=== PATIENT | female | born 1975 | race Caucasian/White ===

== ENCOUNTER 2017-08-14 17:29 | Emergency (ER) | payer OTHER ==
[~2017-08-14] VITALS: Ht 152.4 cm; Wt 71.2 kg
[~2017-08-14 17:29] MED LIST: ACYC400 PO; AMOCLA875 PO; CEPH500 PO; CLON.1 PO; CLON1; CLON1 PO; CLON2; CLON2 PO; CYCL10 PO; Crutch1 EACH MISC; DOCU100 PO; FLUC150A PO; GABA300; GABA300 PO; GABA600 PO; HYDACE10B; HYDACE10B PO; HYDACE5 PO; HYDACE5325; HYDCHL25 PO; IBUP800 PO; MEDICAL MARIJUANA; META800 PO; METH10 PO; METH40; METH40 PO; METPRE4DP PO; Mobic15 MG PO; NAPR375 PO; NAPR500 PO; Norco 5-325 Ta1 EACH PO; OXYC10TA19 PO; PARO30; PENVK500 PO; PRED10 PO; PRED20 PO; PROM25 PO; Percocet 5-3251 EACH PO; Protonix40 MG PO; Roxicodone5 MG PO; SULTRIDS PO; TRIM250 PO; VENL75; Zofran4 MG PO
[2017-08-14] MEDS ORDERED: Norco 5-325 Ta1 EACH PO (20:02)
[2017-08-14] MEDS ORDERED: Cyclobenzaprine5 MG PO (20:02)
[2018-02-12] MEDS ORDERED: GABA100 PO (08:29)
== END 2017-08-14 20:13 | disposition home or self-care (01) ==
LOC: ER 17:29
DX: M25.551 Pain in right hip (principal); J44.9 Chronic obstructive pulmonary disease, unspecified; I10 Essential (primary) hypertension; F17.200 Nicotine dependence, unspecified, uncomplicated; Z88.1 Allergy status to other antibiotic agents; Z88.5 Allergy status to narcotic agent; Z86.711 Personal history of pulmonary embolism; Z90.89 Acquired absence of other organs; V43.92XA Unspecified car occupant injured in collision with other type car in traffic accident, initial encounter
CPT/HCPCS: 73502; 99283

== ENCOUNTER 2017-08-23 16:05 | Emergency (ER) | payer OTHER ==
[~2017-08-23] VITALS: Ht 152.4 cm; Wt 70.3 kg
[~2017-08-23 16:05] MED LIST changes: +Cyclobenzaprine5 MG PO
[2017-08-23] MEDS ORDERED: METPRE4DP PO (19:05)
[2018-02-12] MEDS ORDERED: GABA100 PO (08:29)
== END 2017-08-23 19:26 | disposition home or self-care (01) ==
LOC: ER 16:05
DX: S16.1XXA Strain of muscle, fascia and tendon at neck level, initial encounter (principal); M54.12 Radiculopathy, cervical region; V09.9XXA Pedestrian injured in unspecified transport accident, initial encounter
CPT/HCPCS: 36415; 72125; 96374; 99284; J1100

== ENCOUNTER 2017-09-23 15:35 | Emergency (ER) | payer OTHER ==
[~2017-09-23] VITALS: Ht 152.4 cm; Wt 72.6 kg
[2017-09-23] MEDS ORDERED: Klonopin0.5 MG PO (16:30)
[2018-02-12] MEDS ORDERED: GABA100 PO (08:29)
== END 2017-09-23 16:44 | disposition home or self-care (01) ==
LOC: ER 15:35
DX: M54.2 Cervicalgia (principal); Z88.1 Allergy status to other antibiotic agents; Z88.5 Allergy status to narcotic agent; Z79.899 Other long term (current) drug therapy; J44.9 Chronic obstructive pulmonary disease, unspecified; F41.9 Anxiety disorder, unspecified; F17.210 Nicotine dependence, cigarettes, uncomplicated
CPT/HCPCS: 99283

== ENCOUNTER 2018-02-12 08:10 | Emergency (ER) | payer OTHER ==
[~2018-02-12] VITALS: Ht 152.4 cm; Wt 71.2 kg
[~2018-02-12 08:10] MED LIST changes: +Klonopin0.5 MG PO
[2018-02-12] MEDS ORDERED: GABA300 PO (08:29)
[2018-02-12] MEDS ORDERED: CLON.5 PO (08:29)
[2018-02-12] MEDS ORDERED: ALBU90OI INH (10:36)
[2018-02-12] MEDS ORDERED: Augmentin 875-1 EACH PO (10:36)
== END 2018-02-12 10:56 | disposition home or self-care (01) ==
LOC: ER 08:10
DX: J44.0 Chronic obstructive pulmonary disease with (acute) lower respiratory infection (principal); J18.9 Pneumonia, unspecified organism; J32.0 Chronic maxillary sinusitis; F41.9 Anxiety disorder, unspecified; F17.210 Nicotine dependence, cigarettes, uncomplicated; Z88.1 Allergy status to other antibiotic agents; Z88.5 Allergy status to narcotic agent; Z79.899 Other long term (current) drug therapy
CPT/HCPCS: 70220; 71046; 94640

== ENCOUNTER 2018-03-19 06:03 | Emergency (ER) | payer OTHER ==
[~2018-03-19] VITALS: Ht 152.4 cm; Wt 68.5 kg
[~2018-03-19 06:03] MED LIST changes: +ALBU90OI INH; +Augmentin 875-1 EACH PO; +CLON.5 PO
[2018-03-19 07:32] LABS: PCO2 Arterial 42.3 mmHg (35-45); pH Blood Arterial 7.41 (7.35-7.45)
[2018-03-19 08:09] LABS: BASOPHILS ABSOLUTE AUTO 0.05 K/mm3 (0.00-0.23); BASOPHILS PERCENT AUTO 1 % (0-2); EOSINOPHILS ABSOLUTE AUTO 0.32 K/mm3 (0.00-0.68); EOSINOPHILS PERCENT AUTO 4 % (0-6); Hematocrit 34.2 % (33.0-51.0); Hemoglobin 10.9 g/dL (11.5-16.0); IMMATURE GRAN ABSOLUTE AUTO 0.04 K/mm3 (0.00-0.10); IMMATURE GRAN PERCENT AUTO 0 % (0-1); LYMPHOCYTES ABSOLUTE AUTO 2.06 K/mm3 (0.84-5.20); LYMPHOCYTES PERCENT AUTO 23 % (21-46); MONOCYTES ABSOLUTE AUTO 0.91 K/mm3 (0.16-1.47); MONOCYTES PERCENT AUTO 10 % (4-13); Mean Corpuscular HGB 28.8 pg (26.0-34.0); Mean Corpuscular HGB Conc 31.9 g/dL (31.5-36.5); Mean Corpuscular Volume 90 fL (80-100); Mean Platelet Volume 10.2 fL (9.1-12.4); NEUTROPHILS ABSOLUTE AUTO 5.77 K/mm3 (1.96-9.15); NEUTROPHILS PERCENT AUTO 63 % (41-73); Platelet Count 264 K/mm3 (150-400); RDW Coefficient Variation 13.4 % (11.7-14.2); RDW Standard Deviation 44.4 fL (35.1-46.3); Red Blood Cell Count 3.79 M/mm3 (3.80-5.20); White Blood Cell Count 9.15 K/mm3 (4.00-11.30)
[2018-03-19 08:26] LABS: Alanine Aminotransfer (ALT/SGP 41 U/L (12-78); Albumin, Blood 2.9 g/dL (3.4-5.0); Albumin/Globulin Ratio 0.9 (0.8-1.8); Alk Phos 58 U/L (50-136); Anion Gap 7 mmol/L (6-16); Aspartate Aminotrans (AST/SGOT 30 U/L (12-37); Bilirubin, Total 0.4 mg/dL (0.1-1.0); Blood Urea Nitrogen 24 mg/dL (8-24); Bun/Creatinine Ratio 25.9 (12.0-20.0); CO2, Blood 25 mmol/L (21-32); Chloride, Blood 109 mmol/L (98-108); Creatinine, Blood 0.93 mg/dL (0.40-1.00); Globulin, Blood 3.1 g/dL (2.2-4.0); Glomerular Filtration Rate >60 (60-); Glucose, Blood 93 mg/dL (70-99); Potassium, Blood 4.1 mmol/L (3.5-5.5); Sodium, Blood 141 mmol/L (136-145)
[2018-03-19] MEDS ORDERED: LEVO750 PO (09:17)
== END 2018-03-19 09:42 | disposition home or self-care (01) ==
LOC: ER 06:03
PROVIDERS: Emergency Medicine
DX: J44.1 Chronic obstructive pulmonary disease with (acute) exacerbation (principal); J44.0 Chronic obstructive pulmonary disease with (acute) lower respiratory infection; J18.9 Pneumonia, unspecified organism; F41.9 Anxiety disorder, unspecified; F17.210 Nicotine dependence, cigarettes, uncomplicated; Z88.1 Allergy status to other antibiotic agents; Z88.5 Allergy status to narcotic agent; Z79.899 Other long term (current) drug therapy
CPT/HCPCS: 36415; 36600; 71046; 80053; 82803; 85025; 94640; 96374; 99283-25; J1885

== ENCOUNTER 2018-04-03 18:01 | Inpatient (IN) | payer OTHER ==
[~2018-04-03] VITALS: Ht 152.4 cm; Wt 79.2 kg
[~2018-04-03 18:01] MED LIST changes: +GABA100 PO; +LEVO750 PO
[2018-04-03 18:45] LABS: BASOPHILS ABSOLUTE AUTO 0.03 K/mm3 (0.00-0.23); BASOPHILS PERCENT AUTO 0 % (0-2); EOSINOPHILS ABSOLUTE AUTO 0.01 K/mm3 (0.00-0.68); EOSINOPHILS PERCENT AUTO 0 % (0-6); Hematocrit 36.4 % (33.0-51.0); Hemoglobin 11.5 g/dL (11.5-16.0); IMMATURE GRAN ABSOLUTE AUTO 0.04 K/mm3 (0.00-0.10); IMMATURE GRAN PERCENT AUTO 0 % (0-1); LYMPHOCYTES ABSOLUTE AUTO 1.99 K/mm3 (0.84-5.20); LYMPHOCYTES PERCENT AUTO 17 % (21-46); MONOCYTES PERCENT AUTO 4 % (4-13); Mean Corpuscular HGB 29.1 pg (26.0-34.0); Mean Corpuscular HGB Conc 31.6 g/dL (31.5-36.5); Mean Corpuscular Volume 92 fL (80-100); Mean Platelet Volume 10.2 fL (9.1-12.4); NEUTROPHILS ABSOLUTE AUTO 8.85 K/mm3 (1.96-9.15); NEUTROPHILS PERCENT AUTO 77 % (41-73); Platelet Count 399 K/mm3 (150-400); RDW Coefficient Variation 13.6 % (11.7-14.2); RDW Standard Deviation 46.5 fL (35.1-46.3); Red Blood Cell Count 3.95 M/mm3 (3.80-5.20); White Blood Cell Count 11.42 K/mm3 (4.00-11.30)
[2018-04-03 19:04] LABS: Alanine Aminotransfer (ALT/SGP 36 U/L (12-78); Albumin, Blood 3.1 g/dL (3.4-5.0); Albumin/Globulin Ratio 0.9 (0.8-1.8); Alk Phos 61 U/L (50-136); Anion Gap 10 mmol/L (6-16); Aspartate Aminotrans (AST/SGOT 34 U/L (12-37); Bilirubin, Total 0.7 mg/dL (0.1-1.0); Blood Urea Nitrogen 29 mg/dL (8-24); Bun/Creatinine Ratio 27.9 (12.0-20.0); CO2, Blood 23 mmol/L (21-32); Calcium, Blood 8.5 mg/dL (8.5-10.1); Chloride, Blood 108 mmol/L (98-108); Creatinine, Blood 1.04 mg/dL (0.40-1.00); Globulin, Blood 3.3 g/dL (2.2-4.0); Glomerular Filtration Rate >60 (60-); Glucose, Blood 135 mg/dL (70-99); Potassium, Blood 3.9 mmol/L (3.5-5.5); Sodium, Blood 141 mmol/L (136-145); Total Protein, Blood 6.4 g/dL (6.4-8.2); Troponin I 0.043 ng/mL (0.000-0.040)
[2018-04-04 06:43] LABS: Anion Gap 8 mmol/L (6-16); Blood Urea Nitrogen 29 mg/dL (8-24); Bun/Creatinine Ratio 29.9 (12.0-20.0); CHOL/HDL RATIO 3.7; CO2, Blood 25 mmol/L (21-32); Calcium, Blood 7.9 mg/dL (8.5-10.1); Chloride, Blood 108 mmol/L (98-108); Cholesterol 121 mg/dL (50-200); Creatinine, Blood 0.97 mg/dL (0.40-1.00); Glomerular Filtration Rate >60 (60-); Glucose, Blood 144 mg/dL (70-99); HDL Cholesterol 33 mg/dL (>39); LDL/HDL RATIO 2.2; Low Density Lipoprotein Chol 74 mg/dL (0-110); Potassium, Blood 4.5 mmol/L (3.5-5.5); Sodium, Blood 141 mmol/L (136-145); Triglycerides 70 mg/dL (30-160); Troponin I 0.038 ng/mL (0.000-0.040); Very Low Density Lipoprot Chol 14 mg/dL (6-32)
[2018-04-05 06:13] LABS: BASOPHILS ABSOLUTE AUTO 0.03 K/mm3 (0.00-0.23); BASOPHILS PERCENT AUTO 0 % (0-2); EOSINOPHILS ABSOLUTE AUTO 0.11 K/mm3 (0.00-0.68); EOSINOPHILS PERCENT AUTO 1 % (0-6); Hematocrit 34.9 % (33.0-51.0); Hemoglobin 10.8 g/dL (11.5-16.0); IMMATURE GRAN ABSOLUTE AUTO 0.04 K/mm3 (0.00-0.10); IMMATURE GRAN PERCENT AUTO 0 % (0-1); LYMPHOCYTES ABSOLUTE AUTO 2.87 K/mm3 (0.84-5.20); LYMPHOCYTES PERCENT AUTO 23 % (21-46); MONOCYTES ABSOLUTE AUTO 0.83 K/mm3 (0.16-1.47); MONOCYTES PERCENT AUTO 7 % (4-13); Mean Corpuscular HGB Conc 30.9 g/dL (31.5-36.5); Mean Corpuscular Volume 90 fL (80-100); Mean Platelet Volume 10.7 fL (9.1-12.4); NEUTROPHILS PERCENT AUTO 68 % (41-73); Platelet Count 302 K/mm3 (150-400); RDW Coefficient Variation 13.5 % (11.7-14.2); RDW Standard Deviation 44.6 fL (35.1-46.3); Red Blood Cell Count 3.86 M/mm3 (3.80-5.20); White Blood Cell Count 12.28 K/mm3 (4.00-11.30)
[2018-04-05 06:42] LABS: Bun/Creatinine Ratio 36.4 (12.0-20.0); Calcium, Blood 8.3 mg/dL (8.5-10.1); Creatinine, Blood 1.21 mg/dL (0.40-1.00); Potassium, Blood 4.7 mmol/L (3.5-5.5)
[2018-04-06 06:02] LABS: Bun/Creatinine Ratio 30.4 (12.0-20.0); Calcium, Blood 8.2 mg/dL (8.5-10.1); Creatinine, Blood 1.25 mg/dL (0.40-1.00); Potassium, Blood 5.1 mmol/L (3.5-5.5)
[2018-04-07 08:00] LABS: Anion Gap 4 mmol/L (6-16); Blood Urea Nitrogen 29 mg/dL (8-24); Bun/Creatinine Ratio 29.3 (12.0-20.0); CO2, Blood 33 mmol/L (21-32); Chloride, Blood 101 mmol/L (98-108); Creatinine, Blood 0.99 mg/dL (0.40-1.00); Glomerular Filtration Rate >60 (60-); Glucose, Blood 96 mg/dL (70-99); Potassium, Blood 4.9 mmol/L (3.5-5.5); Sodium, Blood 138 mmol/L (136-145)
[2018-04-08 05:31] LABS: BASOPHILS ABSOLUTE AUTO 0.06 K/mm3 (0.00-0.23); BASOPHILS PERCENT AUTO 1 % (0-2); EOSINOPHILS ABSOLUTE AUTO 0.32 K/mm3 (0.00-0.68); EOSINOPHILS PERCENT AUTO 3 % (0-6); Hematocrit 33.6 % (33.0-51.0); Hemoglobin 10.2 g/dL (11.5-16.0); IMMATURE GRAN ABSOLUTE AUTO 0.02 K/mm3 (0.00-0.10); IMMATURE GRAN PERCENT AUTO 0 % (0-1); LYMPHOCYTES PERCENT AUTO 22 % (21-46); MONOCYTES ABSOLUTE AUTO 1.05 K/mm3 (0.16-1.47); MONOCYTES PERCENT AUTO 11 % (4-13); Mean Corpuscular HGB Conc 30.4 g/dL (31.5-36.5); Mean Corpuscular Volume 92 fL (80-100); Mean Platelet Volume 10.2 fL (9.1-12.4); NEUTROPHILS ABSOLUTE AUTO 5.92 K/mm3 (1.96-9.15); NEUTROPHILS PERCENT AUTO 63 % (41-73); Platelet Count 299 K/mm3 (150-400); RDW Coefficient Variation 13.2 % (11.7-14.2); RDW Standard Deviation 45.1 fL (35.1-46.3); Red Blood Cell Count 3.64 M/mm3 (3.80-5.20); White Blood Cell Count 9.47 K/mm3 (4.00-11.30)
[2018-04-08 05:49] LABS: Bun/Creatinine Ratio 25.4 (12.0-20.0); Calcium, Blood 8.4 mg/dL (8.5-10.1); Creatinine, Blood 1.22 mg/dL (0.40-1.00); Potassium, Blood 4.9 mmol/L (3.5-5.5)
[2018-04-10 06:01] LABS: Anion Gap 7 mmol/L (6-16); Blood Urea Nitrogen 35 mg/dL (8-24); CO2, Blood 33 mmol/L (21-32); Calcium, Blood 8.5 mg/dL (8.5-10.1); Chloride, Blood 102 mmol/L (98-108); Creatinine, Blood 1.03 mg/dL (0.40-1.00); Glomerular Filtration Rate >60 (60-); Glucose, Blood 91 mg/dL (70-99); Potassium, Blood 4.1 mmol/L (3.5-5.5); Sodium, Blood 142 mmol/L (136-145)
[2018-04-10] MEDS ORDERED: FURO40 PO (10:15)
[2018-04-10] MEDS ORDERED: Coreg12.5 MG PO (10:15)
[2018-04-10] MEDS ORDERED: LISI5 PO (10:16)
[2018-04-10] MEDS ORDERED: NICO21TP TOP (10:16)
== END 2018-04-10 11:39 | disposition home or self-care (01) | DRG 291 ==
LOC: ER 18:01 → MEDS 21:11 → ENPENDDIS 04-10 09:30 → MEDS 04-10 11:39
PROVIDERS: Emergency Medicine; Internal Medicine; Internal Medicine Cardiovascular Disease
DX: I13.0 Hypertensive heart and chronic kidney disease with heart failure and stage 1 through stage 4 chronic kidney disease, or unspecified chronic kidney disease (principal); I50.21 Acute systolic (congestive) heart failure; J96.01 Acute respiratory failure with hypoxia; J44.1 Chronic obstructive pulmonary disease with (acute) exacerbation; N17.9 Acute kidney failure, unspecified; I27.20 Pulmonary hypertension, unspecified; E87.5 Hyperkalemia; I36.1 Nonrheumatic tricuspid (valve) insufficiency; I42.0 Dilated cardiomyopathy; D64.9 Anemia, unspecified; N18.1 Chronic kidney disease, stage 1; M79.7 Fibromyalgia; F15.10 Other stimulant abuse, uncomplicated; R77.8 Other specified abnormalities of plasma proteins; T50.8X5A Adverse effect of diagnostic agents, initial encounter; Y92.239 Unspecified place in hospital as the place of occurrence of the external cause; F32.9 Major depressive disorder, single episode, unspecified; R73.9 Hyperglycemia, unspecified; I34.0 Nonrheumatic mitral (valve) insufficiency; N14.1 Nephropathy induced by other drugs, medicaments and biological substances; I25.2 Old myocardial infarction; Z22.322 Carrier or suspected carrier of Methicillin resistant Staphylococcus aureus; Z79.899 Other long term (current) drug therapy; Z88.1 Allergy status to other antibiotic agents; Z88.5 Allergy status to narcotic agent; Z59.0 Homelessness
CPT/HCPCS: 36415; 71046; 71260; 78452; 80048; 80053; 80061; 83036; 83735; 83880; 84484; 85025; 87070; 87081; 93005; 93010; 93017; 93306; 94640; 94760; 94762; 96361; 96374; 96375; 99285-25; A9500; J0706; J1650; J1940; J2405; J2785; J2930; J3010; J7030; Q9967

== ENCOUNTER 2019-05-10 06:52 | Inpatient (IN) | payer OTHER ==
[~2019-05-10] VITALS: Ht 152.4 cm; Wt 76.0 kg
[~2019-05-10 06:52] MED LIST changes: +Coreg12.5 MG PO; +FURO40 PO; +LISI5 PO; +NICO21TP TOP
[2019-05-10 07:55] LABS: BASOPHILS ABSOLUTE AUTO 0.09 K/mm3 (0.00-0.23); BASOPHILS PERCENT AUTO 1 % (0-2); EOSINOPHILS ABSOLUTE AUTO 0.34 K/mm3 (0.00-0.68); EOSINOPHILS PERCENT AUTO 3 % (0-6); Hemoglobin 12.1 g/dL (11.5-16.0); IMMATURE GRAN ABSOLUTE AUTO 0.05 K/mm3 (0.00-0.10); IMMATURE GRAN PERCENT AUTO 0 % (0-1); LYMPHOCYTES PERCENT AUTO 24 % (21-46); MONOCYTES ABSOLUTE AUTO 0.96 K/mm3 (0.16-1.47); MONOCYTES PERCENT AUTO 8 % (4-13); Mean Corpuscular HGB 28.6 pg (26.0-34.0); Mean Corpuscular Volume 92 fL (80-100); Mean Platelet Volume 9.9 fL (9.1-12.4); NEUTROPHILS ABSOLUTE AUTO 7.51 K/mm3 (1.96-9.15); NEUTROPHILS PERCENT AUTO 64 % (41-73); Platelet Count 372 K/mm3 (150-400); RDW Coefficient Variation 13.1 % (11.7-14.2); RDW Standard Deviation 43.9 fL (35.1-46.3); Red Blood Cell Count 4.23 M/mm3 (3.80-5.20); White Blood Cell Count 11.75 K/mm3 (4.00-11.30)
[2019-05-10 08:15] LABS: Troponin I 0.037 ng/mL (0.000-0.040)
[2019-05-10 08:16] LABS: Albumin, Blood 3.5 g/dL (3.4-5.0); Bilirubin, Total 0.5 mg/dL (0.1-1.0); Bun/Creatinine Ratio 18.1 (12.0-20.0); Calcium, Blood 8.7 mg/dL (8.5-10.1); Creatinine, Blood 1.16 mg/dL (0.40-1.00); Globulin, Blood 3.5 g/dL (2.2-4.0); Potassium, Blood 3.9 mmol/L (3.5-5.5)
[2019-05-10] MEDS ORDERED: Ventolin/Prove6.7 GM INH (11:51)
[2019-05-10] MEDS ORDERED: SPIRIVA RESPIMAT4 GM INH (11:51)
[2019-05-10] MEDS ORDERED: LAMO25 PO ×2 (11:52)
[2019-05-10 15:46] LABS: Adenovirus Not Detected (NOT DETECT); Bordetella pertussis Not Detected (NOT DETECT); Chlamydophila pneumoniae Not Detected (NOT DETECT); Coronavirus 229E Not Detected (NOT DETECT); Coronavirus HKU1 Not Detected (NOT DETECT); Coronavirus NL63 Not Detected (NOT DETECT); Coronavirus OC43 Not Detected (NOT DETECT); Human Metapneumovirus Not Detected (NOT DETECT); Human Rhinovirus/Enterovirus Detected (NOT DETECT); Influenza A Not Detected (NOT DETECT); Influenza A/2009-H1 Not Detected (NOT DETECT); Influenza A/H1 Not Detected (NOT DETECT); Influenza A/H3 Not Detected (NOT DETECT); Influenza B Not Detected (NOT DETECT); Mycoplasma pneumoniae Not Detected (NOT DETECT); Parainfluenza Virus 1 Not Detected (NOT DETECT); Parainfluenza Virus 2 Not Detected (NOT DETECT); Parainfluenza Virus 3 Not Detected (NOT DETECT); Parainfluenza Virus 4 Not Detected (NOT DETECT); Respiratory Syncytial Virus Not Detected (NOT DETECT)
--- NOTE | 2019-05-10 19:46 | NUR ---
SHIFT SUMMARY RECEIVED REPORT FROM GERARD LOWERY IN ED. PT TO ROOM AT 1315 VIA GURNEY, SBA TRANSFERED TO BED. PT ORIENTED TO ROOM AND CALL LIGHT. PT EDUCATED ON FALL RISK AND TO CALL BEFORE GETTING OUT OF BED. PT A&Ox4. CALM AND COOPERTIAVE WITH CARE. PT RESTING IN BED DURING SHIFT. UP TO BATHROOM WITH SBA. PT REPORTS PAIN IN RIBS AND BACK, MEDICATED WITH TYLENOL AND NO RELEIFE, NOTIFIED DR MAYER AND DISCUSSED PAIN MANAGEMENT, NEW ORDERS ENTERED BY , MEDICATED x1 WITH FENTNYL WITH POSITIVE RESULTS. PT DENIES SOB, SPO2 >92% ON RA, BREATHING EVEN AND UNLABORED. PT DENIES PRODUCTIVE COUGH, HARSH COUGH NOTIED. RESP PANEL COLLECTED AND SENT. NEED URINE AND SPUTUM SAMPLE. PT RECEIVING IV ANTIBIOTICS AND LASIX. VSS. NO OTHER ACUTE CHANGES NOTED. REPORT GIVEN TO ONCOMING RN.
[2019-05-11 05:40] LABS: BASOPHILS ABSOLUTE AUTO 0.02 K/mm3 (0.00-0.23); BASOPHILS PERCENT AUTO 0 % (0-2); EOSINOPHILS ABSOLUTE AUTO 0.01 K/mm3 (0.00-0.68); EOSINOPHILS PERCENT AUTO 0 % (0-6); Hematocrit 38.1 % (33.0-51.0); Hemoglobin 12.2 g/dL (11.5-16.0); IMMATURE GRAN ABSOLUTE AUTO 0.12 K/mm3 (0.00-0.10); IMMATURE GRAN PERCENT AUTO 1 % (0-1); LYMPHOCYTES ABSOLUTE AUTO 1.47 K/mm3 (0.84-5.20); LYMPHOCYTES PERCENT AUTO 7 % (21-46); MONOCYTES ABSOLUTE AUTO 1.52 K/mm3 (0.16-1.47); MONOCYTES PERCENT AUTO 7 % (4-13); Mean Corpuscular HGB 28.5 pg (26.0-34.0); Mean Platelet Volume 9.9 fL (9.1-12.4); NEUTROPHILS ABSOLUTE AUTO 17.91 K/mm3 (1.96-9.15); NEUTROPHILS PERCENT AUTO 85 % (41-73); Platelet Count 439 K/mm3 (150-400); RDW Coefficient Variation 12.8 % (11.7-14.2); RDW Standard Deviation 41.8 fL (35.1-46.3); Red Blood Cell Count 4.28 M/mm3 (3.80-5.20); White Blood Cell Count 21.05 K/mm3 (4.00-11.30)
[2019-05-11 05:44] LABS: Mean Corpuscular Volume 89 fL (80-100)
[2019-05-11 06:01] LABS: Albumin/Globulin Ratio 0.8 (0.8-1.8); Bilirubin, Total 0.4 mg/dL (0.1-1.0); Bun/Creatinine Ratio 25.8 (12.0-20.0); Calcium, Blood 9.1 mg/dL (8.5-10.1); Creatinine, Blood 1.2 mg/dL (0.40-1.00); Globulin, Blood 3.7 g/dL (2.2-4.0); Potassium, Blood 4.8 mmol/L (3.5-5.5); Total Protein, Blood 6.7 g/dL (6.4-8.2)
--- NOTE | 2019-05-11 06:11 | NUR ---
SHIFT SUMMARY PT RESTING IN ROOM COMFORTABLY AT THIS TIME. NO ACUTE CHANGES IN STATUS T/O NIGHT. RESP EVEN UNLABORED ON RA W/ SATS >92%. DENIES CP OR SOB. PT WAS MEDICATED ONCE DURING NIGHT FOR PAIN. PT WAS ALSO GIVEN K PAD FOR MUSLCE SPASMS IN HER BACK. PT REPORTS FEELING MUCH BETTER. PT HAS BEEN UNLABOLE TO PROVIDE URINE SAMPLE T/O NIGHT, PT REPORTS HAS NOT NEEDED TO GO TO THE BATHROOM. PT EDUCATED THAT IF SHE HASN;T GONE TO THE BATHROOM SOON THAT WE WOULD NEED TO BLADDER SCAN PT TO ENSURE THAT PT WAS NOT RETAINING URINE. PT REPORTS UNDERSTANDING. DENIES OTHER NEEDS. PT REQUESTED SNACKS THIS AM BEFORE BREAKFAST D/T INCREASED APPETITE. CALL LIGHT IN REACH.
[2019-05-11 10:26] LABS: U Amphetamine Screen DETECTED; U Barbituate Screen Not Detected; U Benzodiazapine Screen Not Detected; U Buprenorphine Screen Not Detected; U Cannabinoids Screen Not Detected; U Cocaine Screen Not Detected; U Methadone Screen Not Detected; U Methamphetamine Screen DETECTED; U Opiates Screen Not Detected; U Oxycodone Screen Not Detected; U Phencyclidine Screen Not Detected; U Propoxyphene Screen Not Detected
--- NOTE | 2019-05-11 11:54 | NUR ---
Echocardiogram completed.
--- NOTE | 2019-05-11 14:45 | NUR ---
REPORT GIVEN TO RIO BE RN ON MEDICAL. PT TO ROOM AT 1430. PT A&Ox4. CALM AND COOPERATIVE WITH CARE. PT RESTING IN BED DURING SHFIT. UP IND IN ROOM. PT REPORTS RIB/BACK PAIN, MEDICATED X1 WITH FENTNYL WITH POSTIVE RESULTS. PT DENIES SOB AND NAUSEA T/O SHIFT. PT HAS GOOD APPETEITE. URINE AND SPUTUM SPECIMEN SENT. PT RECEIVED PO STEROIDS AND IV LASIX. VSS. NO OTHER ACUTE CHANGES NOTED DURING SHIFT.
--- NOTE | 2019-05-11 19:05 | NUR ---
PT. TRANSFERRED FROM [facility] AT 1435 VIA . PT. WENT TO BED AND SLEPT UNTIL 1800 THIS EVENING. UPON WAKING PT. ATE HER DINNER AND REQUESTED PAIN MEDS. FENTNYL GIVEN PER ORDERS. PT. NOTED TO HAVE SCILIOSIS. NO NOTEABLE CHANGES SINCE COMING TO THE FLOOR.
--- NOTE | 2019-05-12 05:09 | NUR ---
HAS BEEN RESTING QUIETLY WITH A FEW EXCEPTIONS WHEN SHE CAME OUT IN THE HALLWAY FOR ASSISTANCE. - HOW TO TURN OFF THE LIGHTS IN HER ROOM, ETC. MED TELE SINUS RHYTHM. UP AD REUBEN IN ROOM. CALL LIGHT IN REACH.
[2019-05-12 06:08] LABS: BASOPHILS ABSOLUTE AUTO 0.03 K/mm3 (0.00-0.23); BASOPHILS PERCENT AUTO 0 % (0-2); EOSINOPHILS ABSOLUTE AUTO 0.04 K/mm3 (0.00-0.68); EOSINOPHILS PERCENT AUTO 0 % (0-6); Hematocrit 38.1 % (33.0-51.0); Hemoglobin 12.1 g/dL (11.5-16.0); IMMATURE GRAN PERCENT AUTO 1 % (0-1); LYMPHOCYTES ABSOLUTE AUTO 2.46 K/mm3 (0.84-5.20); LYMPHOCYTES PERCENT AUTO 15 % (21-46); MONOCYTES PERCENT AUTO 8 % (4-13); Mean Corpuscular HGB 29.1 pg (26.0-34.0); Mean Corpuscular HGB Conc 31.8 g/dL (31.5-36.5); Mean Corpuscular Volume 92 fL (80-100); Mean Platelet Volume 10.2 fL (9.1-12.4); NEUTROPHILS PERCENT AUTO 76 % (41-73); Platelet Count 392 K/mm3 (150-400); RDW Coefficient Variation 12.9 % (11.7-14.2); RDW Standard Deviation 43.4 fL (35.1-46.3); Red Blood Cell Count 4.16 M/mm3 (3.80-5.20); White Blood Cell Count 16.63 K/mm3 (4.00-11.30)
[2019-05-12 06:18] LABS: Bun/Creatinine Ratio 36.5 (12.0-20.0); Calcium, Blood 9.1 mg/dL (8.5-10.1); Creatinine, Blood 1.15 mg/dL (0.40-1.00); Potassium, Blood 4.3 mmol/L (3.5-5.5)
--- NOTE | 2019-05-12 19:12 | NUR ---
SHIFT SUMMARY: NO ACUTE CHANGES TO REPORT THIS SHIFT. PT A&O; CALM AND COOPERATIVE WITH CARE. MEDICATED FOR PAIN & ANXIETY PER EMAR. TELE IN PLACE; SR @ 83 PER LEGAL DOCUMENT SPECIALIST DURING MORNING ASSESSMENT. LUNGS CONTINUE WHEEZY DIM; DIURETICS CONTINUING. REPORT GIVEN TO ONCOMING RN.
--- NOTE | 2019-05-13 01:47 | NUR ---
ERSTING QUIETLY WITH FEW INTERRUPTIONS NOTED. AWAKE EARLIER AND REQUESTED FOOD, LUNGS CONTINUE TO DISPLAY SLIGHT WHEEZE WITH AUSCULTATION BUT SEEMS ASYMPTOMATIC. CALL LIGHT IN REACH.
[2019-05-13 05:07] LABS: BASOPHILS ABSOLUTE AUTO 0.03 K/mm3 (0.00-0.23); BASOPHILS PERCENT AUTO 0 % (0-2); EOSINOPHILS ABSOLUTE AUTO 0.05 K/mm3 (0.00-0.68); EOSINOPHILS PERCENT AUTO 0 % (0-6); Hematocrit 41.8 % (33.0-51.0); Hemoglobin 13.2 g/dL (11.5-16.0); IMMATURE GRAN ABSOLUTE AUTO 0.15 K/mm3 (0.00-0.10); IMMATURE GRAN PERCENT AUTO 1 % (0-1); LYMPHOCYTES ABSOLUTE AUTO 3.09 K/mm3 (0.84-5.20); LYMPHOCYTES PERCENT AUTO 19 % (21-46); MONOCYTES PERCENT AUTO 9 % (4-13); Mean Corpuscular HGB 28.9 pg (26.0-34.0); Mean Corpuscular HGB Conc 31.6 g/dL (31.5-36.5); Mean Corpuscular Volume 92 fL (80-100); Mean Platelet Volume 10.2 fL (9.1-12.4); NEUTROPHILS ABSOLUTE AUTO 11.42 K/mm3 (1.96-9.15); NEUTROPHILS PERCENT AUTO 71 % (41-73); Platelet Count 469 K/mm3 (150-400); RDW Coefficient Variation 12.7 % (11.7-14.2); RDW Standard Deviation 42.5 fL (35.1-46.3); Red Blood Cell Count 4.56 M/mm3 (3.80-5.20); White Blood Cell Count 16.14 K/mm3 (4.00-11.30)
[2019-05-13 05:27] LABS: Anion Gap 6 mmol/L (6-16); Blood Urea Nitrogen 50 mg/dL (8-24); Bun/Creatinine Ratio 39.7 (12.0-20.0); CO2, Blood 30 mmol/L (21-32); Chloride, Blood 100 mmol/L (98-108); Creatinine, Blood 1.26 mg/dL (0.40-1.00); Glomerular Filtration Rate 49 (60-); Glucose, Blood 84 mg/dL (70-99); Potassium, Blood 4.1 mmol/L (3.5-5.5); Sodium, Blood 136 mmol/L (136-145)
--- NOTE | 2019-05-13 18:30 | NUR ---
SHIFT SUMMARY: NO ACUTE CHANGES TO REPORT THIS SHIFT. PT A&O; CALM AND COOPERATIVE WITH CARE. MEDICATED FOR PAIN & ANXIETY PER EMAR. TELE D/C'd THIS SHIFT. LUNGS CONTINUE WHEEZY; ORAL STEROIDS; RT FOLLOWING. ORAL ABX. WCTM.
--- NOTE | 2019-05-14 00:50 | NUR ---
05/13/191914: ASSUMED CARE OF PATIENT. PATIENT DOSING BUT AROUSABLE. PPT REQ HER PAIN MED AND HER KLONOPIN TOGETHER. DISCUSSED NEXT PAIN MEDICATION AVAILBLE ABOUT 2815. 2015: ASSESSMENT COMPLETE. PATIENT LUNG SOUNDS CLEAR THROUGHOUT. IN NO APPARENTDISTRESS AT THIS TIME. BED LOW AND LOCKED. CALL COLBERT WITHIN REACH
[2019-05-14 05:29] LABS: BASOPHILS ABSOLUTE AUTO 0.03 K/mm3 (0.00-0.23); BASOPHILS PERCENT AUTO 0 % (0-2); EOSINOPHILS ABSOLUTE AUTO 0.07 K/mm3 (0.00-0.68); EOSINOPHILS PERCENT AUTO 0 % (0-6); Hematocrit 42.3 % (33.0-51.0); Hemoglobin 13.1 g/dL (11.5-16.0); IMMATURE GRAN PERCENT AUTO 1 % (0-1); LYMPHOCYTES ABSOLUTE AUTO 3.45 K/mm3 (0.84-5.20); LYMPHOCYTES PERCENT AUTO 20 % (21-46); MONOCYTES PERCENT AUTO 10 % (4-13); Mean Corpuscular HGB 28.7 pg (26.0-34.0); Mean Corpuscular Volume 93 fL (80-100); Mean Platelet Volume 10.1 fL (9.1-12.4); NEUTROPHILS ABSOLUTE AUTO 11.55 K/mm3 (1.96-9.15); NEUTROPHILS PERCENT AUTO 68 % (41-73); Platelet Count 446 K/mm3 (150-400); RDW Coefficient Variation 12.5 % (11.7-14.2); RDW Standard Deviation 42.9 fL (35.1-46.3); Red Blood Cell Count 4.57 M/mm3 (3.80-5.20)
[2019-05-14 05:57] LABS: Bun/Creatinine Ratio 36.8 (12.0-20.0); Calcium, Blood 9.4 mg/dL (8.5-10.1); Creatinine, Blood 1.17 mg/dL (0.40-1.00); Potassium, Blood 4.6 mmol/L (3.5-5.5)
[2019-05-14] MEDS ORDERED: ACET325 PO (11:39)
[2019-05-14] MEDS ORDERED: ASPI81CH PO (11:39)
[2019-05-14] MEDS ORDERED: MUCUS ER600 M1 PO (11:41)
[2019-05-14] MEDS ORDERED: LEVO750 PO (11:41)
[2019-05-14] MEDS ORDERED: ONDA4ODT MM (11:42)
[2019-05-14] MEDS ORDERED: PRED20 PO (11:42)
[2019-05-14] MEDS ORDERED: POTCHL20ER PO (11:42)
[2019-05-14] MEDS ORDERED: Florastor250 MG PO (11:43)
[2019-05-14] MEDS ORDERED: COMBIVENT RESPIM4 GM INH (11:44)
--- NOTE | 2019-05-14 16:44 | NUR ---
PATIENT IS ALERT AND ORIENTED AND COOPERATIVE WITH CARE. DR. ENRIQUEZ PUT IN DISCHARGE ORDERS THIS MORNING AFTER TALKING TO THE PATIENT. THE RN FINISHED THE DISCHARGE ORDERS AND WENT OVER THEM WITH THE PATIENT. THE PATIENT HAS BEEN WAITING FOR HER RIDE SINCE THIS MORNING. SHE HAS BEEN SLEEPING BETWEEN MEALS AND MEDICATIONS. WILL CONTINUE TO MONITOR.
--- NOTE | 2019-05-14 17:53 | NUR ---
PATIENT DISCHARGED AT 17:50.
--- NOTE | 2019-05-15 00:51 | NUR ---
ACCESSED PT'S INFO TO SEE IF THE HOME MEDS LEFT IN THE DRAWER WERE THEIRS. THEY ARE SO WE WILL CALL PT IN THE AM TO LET HIM KNOW.
== END 2019-05-14 17:50 | disposition home or self-care (01) | DRG 871 ==
LOC: ER 06:52 → PCU 12:03 → MEDS 05-11 14:28 → ENPENDDIS 05-14 11:19 → MEDS 05-14 17:50
PROVIDERS: Emergency Medicine; Family Medicine; Internal Medicine; Nurse Practitioner Acute Care; ADMIT Family Medicine
DX: A41.89 Other specified sepsis (principal); J96.21 Acute and chronic respiratory failure with hypoxia; J18.9 Pneumonia, unspecified organism; I50.23 Acute on chronic systolic (congestive) heart failure; I42.0 Dilated cardiomyopathy; J44.1 Chronic obstructive pulmonary disease with (acute) exacerbation; J44.0 Chronic obstructive pulmonary disease with (acute) lower respiratory infection; J20.6 Acute bronchitis due to rhinovirus; F41.1 Generalized anxiety disorder; I11.0 Hypertensive heart disease with heart failure; F19.10 Other psychoactive substance abuse, uncomplicated; B97.10 Unspecified enterovirus as the cause of diseases classified elsewhere; M79.7 Fibromyalgia; Z91.19 Patient's noncompliance with other medical treatment and regimen; F17.210 Nicotine dependence, cigarettes, uncomplicated
CPT/HCPCS: 0099U; 36415; 71045; 71046; 80048; 80053; 80069; 83605; 83735; 83880; 84145; 84484; 85025; 87040; 87070; 87077; 87186; 87205; 93005; 93010; 93306; 94640; 94760; 96365; 96366; 96367; 96372-59; 96375; 99285-25; A9270; A9270-GY; J0696; J1170; J1650; J1940; J1956; J2930; J3010; J7512

== ENCOUNTER 2019-12-21 10:20 | Emergency (ER) | payer OTHER ==
[~2019-12-21] VITALS: Ht 152.4 cm; Wt 69.0 kg
[~2019-12-21 10:20] MED LIST changes: +ACET325 PO; +ASPI81CH PO; +COMBIVENT RESPIM4 GM INH; +Florastor250 MG PO; +LAMO25 PO; +MUCUS ER600 M1 PO; +ONDA4ODT MM; +POTCHL20ER PO; +SPIRIVA RESPIMAT4 GM INH; +Ventolin/Prove6.7 GM INH
[2019-12-21] MEDS ORDERED: Chantix1 MG PO (10:44)
[2019-12-21] MEDS ORDERED: KETO10 PO (12:08)
[2019-12-21] MEDS ORDERED: Percocet 5-3251 EACH PO (12:08)
== END 2019-12-21 12:18 | disposition home or self-care (01) ==
LOC: ER 10:20
DX: G89.29 Other chronic pain (principal); M54.2 Cervicalgia; Z88.1 Allergy status to other antibiotic agents; Z88.5 Allergy status to narcotic agent; Z79.899 Other long term (current) drug therapy; Z79.82 Long term (current) use of aspirin; Z79.52 Long term (current) use of systemic steroids; J44.9 Chronic obstructive pulmonary disease, unspecified; F41.9 Anxiety disorder, unspecified; I50.9 Heart failure, unspecified; I25.2 Old myocardial infarction; F17.210 Nicotine dependence, cigarettes, uncomplicated
CPT/HCPCS: 96372; 99283-25; J1885

== ENCOUNTER → 2020-04-19 | Outpatient (CLI) | payer OTHER ==
[~2020-04-19] MED LIST changes: +Chantix1 MG PO; +KETO10 PO
[2020-04-20 10:06] LABS: Candida species (DNA Probe) Negative (NEGATIVE); G. vaginalis (DNA Probe) Positive (NEGATIVE); T. vaginalis (DNA Probe) Positive (NEGATIVE)
[2020-04-22 01:05] LABS: CHLAMYDIA TRACHOMATIS, NAA Negative (Negative); HPV 16 Negative (Negative); HPV 18 Negative (Negative); HPV OTHER HR TYPES Positive (Negative); NEISSERIA GONORRHOEAE, NAA Negative (Negative)
== END | disposition home or self-care (01) ==
LOC: LAB SHORT 18:01 → LAB 18:01
PROVIDERS: Nurse Practitioner Family
DX: Z11.3 Encounter for screening for infections with a predominantly sexual mode of transmission (principal); Z12.4 Encounter for screening for malignant neoplasm of cervix; N76.0 Acute vaginitis
CPT/HCPCS: 87480; 87491; 87510; 87591; 87624; 87625; 87660; G0145

== ENCOUNTER → 2020-06-18 | Outpatient (CLI) | payer OTHER ==
[2020-06-19 06:23] LABS: Candida species (DNA Probe) Negative (NEGATIVE); G. vaginalis (DNA Probe) Positive (NEGATIVE); T. vaginalis (DNA Probe) Positive (NEGATIVE)
== END | disposition home or self-care (01) ==
LOC: LAB 14:15 → LAB SHORT 14:15
PROVIDERS: Family Medicine
DX: N76.1 Subacute and chronic vaginitis (principal)
CPT/HCPCS: 87480; 87510; 87660

== ENCOUNTER 2020-07-28 10:42 | Emergency (ER) | payer OTHER ==
[~2020-07-28] VITALS: Ht 152.4 cm; Wt 74.4 kg
[2020-07-28] MEDS ORDERED: Bactrim Ds Tab1 EACH PO (11:05)
[2020-07-28] MEDS ORDERED: FLUC150A PO (11:17)
== END 2020-07-28 11:15 | disposition home or self-care (01) ==
LOC: ER 10:42
DX: L08.9 Local infection of the skin and subcutaneous tissue, unspecified (principal); J34.89 Other specified disorders of nose and nasal sinuses; J44.9 Chronic obstructive pulmonary disease, unspecified; F41.9 Anxiety disorder, unspecified; I25.2 Old myocardial infarction; I10 Essential (primary) hypertension; Z87.891 Personal history of nicotine dependence; Z79.82 Long term (current) use of aspirin; Z79.899 Other long term (current) drug therapy
CPT/HCPCS: 99282; A9270-GY

== ENCOUNTER 2020-08-16 15:30 | Emergency (ER) | payer OTHER ==
[~2020-08-16] VITALS: Ht 152.4 cm; Wt 77.1 kg
[~2020-08-16 15:30] MED LIST changes: +Bactrim Ds Tab1 EACH PO
[2020-08-16 16:11] LABS: BASOPHILS ABSOLUTE AUTO 0.07 K/mm3 (0.00-0.23); BASOPHILS PERCENT AUTO 1 % (0-2); EOSINOPHILS ABSOLUTE AUTO 0.25 K/mm3 (0.00-0.68); EOSINOPHILS PERCENT AUTO 2 % (0-6); Hematocrit 45.6 % (33.0-51.0); Hemoglobin 14.4 g/dL (11.5-16.0); IMMATURE GRAN ABSOLUTE AUTO 0.08 K/mm3 (0.00-0.10); IMMATURE GRAN PERCENT AUTO 1 % (0-1); LYMPHOCYTES ABSOLUTE AUTO 3.86 K/mm3 (0.84-5.20); LYMPHOCYTES PERCENT AUTO 26 % (21-46); MONOCYTES ABSOLUTE AUTO 1.28 K/mm3 (0.16-1.47); MONOCYTES PERCENT AUTO 9 % (4-13); Mean Corpuscular HGB 28.9 pg (26.0-34.0); Mean Corpuscular HGB Conc 31.6 g/dL (31.5-36.5); Mean Corpuscular Volume 92 fL (80-100); Mean Platelet Volume 9.9 fL (9.1-12.4); NEUTROPHILS ABSOLUTE AUTO 9.11 K/mm3 (1.96-9.15); NEUTROPHILS PERCENT AUTO 62 % (41-73); Platelet Count 424 K/mm3 (150-400); RDW Coefficient Variation 13.2 % (11.7-14.2); RDW Standard Deviation 45.1 fL (35.1-46.3); Red Blood Cell Count 4.98 M/mm3 (3.80-5.20); White Blood Cell Count 14.65 K/mm3 (4.00-11.30)
[2020-08-16 16:37] LABS: Alanine Aminotransfer (ALT/SGP 19 U/L (12-78); Albumin, Blood 3.9 g/dL (3.4-5.0); Alk Phos 60 U/L (50-136); Anion Gap 5 mmol/L (6-16); Aspartate Aminotrans (AST/SGOT 16 U/L (12-37); Bilirubin, Total 0.4 mg/dL (0.1-1.0); Blood Urea Nitrogen 21 mg/dL (8-24); Bun/Creatinine Ratio 15.3 (12.0-20.0); CO2, Blood 28 mmol/L (21-32); Calcium, Blood 8.8 mg/dL (8.5-10.1); Chloride, Blood 104 mmol/L (98-108); Creatinine, Blood 1.37 mg/dL (0.40-1.00); Globulin, Blood 3.8 g/dL (2.2-4.0); Glomerular Filtration Rate 44 (60-); Glucose, Blood 94 mg/dL (70-99); Potassium, Blood 4.5 mmol/L (3.5-5.5); Sodium, Blood 137 mmol/L (136-145); Total Protein, Blood 7.7 g/dL (6.4-8.2); Troponin I <0.015 ng/mL (0.000-0.040)
[2020-08-16 19:51] LABS: Source, Urine Clean Catch
[2020-08-16 19:53] LABS: Bilirubin, Urine Neg (Neg); Blood, Urine Neg (Neg); Glucose Qualitative, Urine Neg (Neg); Ketones, Urine Neg (Neg); Leukocyte Esterase, Urine Neg (Neg); Nitrite, Urine Neg (Neg); Protein, Urine 2+ (Neg); Urobilinogen, Urine NORM (Normal)
[2020-08-16 20:06] LABS: Appearance, Urine Clear (Clear); Color, Urine Yellow (P-Yellow)
[2020-08-16 20:07] LABS: Bacteria Few /hpf; Red Blood Cells, Urine Not Seen /hpf (0-2); Squamous Epithelial Cells Mod /hpf (Few); White Blood Cells, Urine Rare /hpf (0-5)
[2020-08-16] MEDS ORDERED: OMEP20ER PO (20:39)
== END 2020-08-16 20:41 | disposition home or self-care (01) ==
LOC: ER 15:30
PROVIDERS: Physician Assistant
DX: K21.9 Gastro-esophageal reflux disease without esophagitis (principal); J44.9 Chronic obstructive pulmonary disease, unspecified; I25.2 Old myocardial infarction; I11.0 Hypertensive heart disease with heart failure; I50.9 Heart failure, unspecified; Z88.1 Allergy status to other antibiotic agents; Z79.899 Other long term (current) drug therapy; Z79.82 Long term (current) use of aspirin; Z88.5 Allergy status to narcotic agent; Z87.891 Personal history of nicotine dependence
CPT/HCPCS: 36415; 71046; 74177; 80053; 81001; 83690; 84484; 85025; 93005; 93010; 99284-25; Q9967

== ENCOUNTER 2020-08-21 09:32 | Emergency (ER) | payer OTHER ==
[~2020-08-21] VITALS: Ht 152.4 cm; Wt 76.2 kg
[~2020-08-21 09:32] MED LIST changes: +OMEP20ER PO
[2020-08-21] MEDS ORDERED: OXYC5 PO ×2 (13:17→13:29)
[2020-08-21] MEDS ORDERED: Crutch1 EACH XX (13:24)
== END 2020-08-21 14:00 | disposition home or self-care (01) ==
LOC: ER 09:32
DX: S93.401A Sprain of unspecified ligament of right ankle, initial encounter (principal); J44.9 Chronic obstructive pulmonary disease, unspecified; I11.0 Hypertensive heart disease with heart failure; I50.9 Heart failure, unspecified; F17.210 Nicotine dependence, cigarettes, uncomplicated; Z88.1 Allergy status to other antibiotic agents; Z88.5 Allergy status to narcotic agent; Z79.82 Long term (current) use of aspirin; Z79.899 Other long term (current) drug therapy; W10.9XXA Fall (on) (from) unspecified stairs and steps, initial encounter
CPT/HCPCS: 73610; 73630; 96374; 96375; 99284-25; J1170; J1885; J2405

== ENCOUNTER → 2021-05-01 | Outpatient (CLI) | payer OTHER ==
[~2021-05-01] MED LIST changes: +Crutch1 EACH XX; +OXYC5 PO
[2021-05-02 09:17] LABS: Candida species (DNA Probe) Negative (NEGATIVE); G. vaginalis (DNA Probe) Positive (NEGATIVE); T. vaginalis (DNA Probe) Negative (NEGATIVE)
== END | disposition home or self-care (01) ==
LOC: LAB 15:30 → LAB SHORT 15:30
PROVIDERS: Family Medicine
DX: N76.0 Acute vaginitis (principal)
CPT/HCPCS: 87480; 87510; 87660

== ENCOUNTER → 2021-06-04 | Outpatient (CLI) | payer OTHER | LOC: LAB SHORT 16:21 → LAB 16:21 | DX: N76.0 Acute vaginitis (principal); Z88.1 Allergy status to other antibiotic agents; Z88.6 Allergy status to analgesic agent | CPT/HCPCS: 87077; 87086; 87186 ==

== ENCOUNTER → 2021-08-14 | Outpatient (CLI) | payer OTHER ==
[2021-08-14 16:55] LABS: Source, Urine Clean Catch
[2021-08-14 19:00] LABS: Appearance, Urine Hazy (Clear); Bilirubin, Urine Neg (Neg); Blood, Urine Neg (Neg); Color, Urine Yellow (P-Yellow); Glucose Qualitative, Urine Neg (Neg); Ketones, Urine 1+ (Neg); Leukocyte Esterase, Urine 1+ (Neg); Nitrite, Urine Neg (Neg); Protein, Urine 2+ (Neg); Specific Gravity, Urine 1.015 (1.003-1.022); Urobilinogen, Urine NORM (Normal)
[2021-08-14 19:26] LABS: Red Blood Cells, Urine 0-2 /hpf (0-2); Squamous Epithelial Cells Mod /hpf (Few)
[2021-08-14 19:27] LABS: Bacteria Mod /hpf
== END | disposition home or self-care (01) ==
LOC: LAB SHORT 16:52
PROVIDERS: Family Medicine
DX: R30.0 Dysuria (principal)
CPT/HCPCS: 81001; 87086

== ENCOUNTER → 2021-08-20 | Outpatient (CLI) | payer OTHER ==
[2021-08-20 14:25] LABS: Adenovirus F 40/41 Not Detected (NOT DETECT); Astrovirus Not Detected (NOT DETECT); Campylobacter Sp Not Detected (NOT DETECT); Cryptosporidium Not Detected (NOT DETECT); Cyclospora Cayetanensis Not Detected (NOT DETECT); E. Coli O157 Not Detected (NOT DETECT); Entamoeba Histolytica Not Detected (NOT DETECT); Enteroaggregative E. coli-EAEC Not Detected (NOT DETECT); Enteropathogenic E. coli-EPEC Not Detected (NOT DETECT); Enterotoxigenic E. coli-ETEC Not Detected (NOT DETECT); Giardia Lamblia Not Detected (NOT DETECT); Norovirus GI/GII Not Detected (NOT DETECT); Plesiomonas Shigelloides Not Detected (NOT DETECT); Rotavirus A Not Detected (NOT DETECT); Salmonella Sp Not Detected (NOT DETECT); Sapovirus Not Detected (NOT DETECT); Shiga Toxin-prod E. coli-STEC Not Detected (NOT DETECT); Shigella/Enteroin E. coli-EIEC Not Detected (NOT DETECT); Vibrio Cholerae Not Detected (NOT DETECT); Vibrio Sp Not Detected (NOT DETECT); Yersinia Enterocolitica Not Detected (NOT DETECT)
== END | disposition home or self-care (01) ==
LOC: LAB SHORT 11:58
PROVIDERS: Family Medicine
DX: R10.13 Epigastric pain (principal); R19.7 Diarrhea, unspecified
CPT/HCPCS: 0097U

== ENCOUNTER 2022-04-16 12:07 | Emergency (ER) | payer OTHER ==
[~2022-04-16] VITALS: Ht 152.4 cm; Wt 81.7 kg
[2022-04-16 13:45] LABS: BASOPHILS ABSOLUTE AUTO 0.08 K/mm3 (0.00-0.23); BASOPHILS PERCENT AUTO 0 % (0-2); EOSINOPHILS ABSOLUTE AUTO 0.01 K/mm3 (0.00-0.68); EOSINOPHILS PERCENT AUTO 0 % (0-6); Hematocrit 48.9 % (33.0-51.0); Hemoglobin 15.1 g/dL (11.5-16.0); IMMATURE GRAN PERCENT AUTO 1 % (0-1); LYMPHOCYTES ABSOLUTE AUTO 1.32 K/mm3 (0.84-5.20); LYMPHOCYTES PERCENT AUTO 5 % (21-46); MONOCYTES ABSOLUTE AUTO 1.93 K/mm3 (0.16-1.47); MONOCYTES PERCENT AUTO 7 % (4-13); Mean Corpuscular HGB 28.2 pg (26.0-34.0); Mean Corpuscular HGB Conc 30.9 g/dL (31.5-36.5); Mean Corpuscular Volume 91 fL (80-100); Mean Platelet Volume 10.7 fL (9.1-12.4); NEUTROPHILS ABSOLUTE AUTO 24.33 K/mm3 (1.96-9.15); NEUTROPHILS PERCENT AUTO 87 % (41-73); Platelet Count 290 K/mm3 (150-400); RDW Coefficient Variation 13.2 % (11.7-14.2); RDW Standard Deviation 44.3 fL (35.1-46.3); Red Blood Cell Count 5.36 M/mm3 (3.80-5.20); White Blood Cell Count 27.87 K/mm3 (4.00-11.30)
[2022-04-16 13:57] LABS: Albumin, Blood 3.2 g/dL (3.4-5.0); Albumin/Globulin Ratio 0.6 (0.8-1.8); Bilirubin, Total 0.9 mg/dL (0.1-1.0); Bun/Creatinine Ratio 13.1 (12.0-20.0); Calcium, Blood 9.1 mg/dL (8.5-10.1); Creatinine, Blood 1.22 mg/dL (0.40-1.00); Globulin, Blood 5.2 g/dL (2.2-4.0); Potassium, Blood 4.3 mmol/L (3.5-5.5); Total Protein, Blood 8.4 g/dL (6.4-8.2)
== END 2022-04-16 17:05 | disposition left against medical advice (07) ==
LOC: ER 12:07
PROVIDERS: Physician Assistant
DX: U07.1 COVID-19 (principal); I11.0 Hypertensive heart disease with heart failure; I50.9 Heart failure, unspecified; J44.9 Chronic obstructive pulmonary disease, unspecified; F17.200 Nicotine dependence, unspecified, uncomplicated; Z79.899 Other long term (current) drug therapy; Z79.82 Long term (current) use of aspirin; Z88.5 Allergy status to narcotic agent; Z88.1 Allergy status to other antibiotic agents; Z53.29 Procedure and treatment not carried out because of patient's decision for other reasons
CPT/HCPCS: 36415; 71045; 80053; 83880; 84484; 84703; 85025; 85379; 93005; 93010; 96374; 99283-25; J1885; J2405; J7030

== ENCOUNTER 2022-06-18 07:31 | Emergency (ER) | payer OTHER ==
[~2022-06-18] VITALS: Ht 167.6 cm; Wt 95.2 kg
[2022-06-18] MEDS ORDERED: CLON1 PO (16:23)
[2022-06-18] MEDS ORDERED: Seroquel Xr50 MG PO (16:24)
[2022-06-18] MEDS ORDERED: Carvedilol12.5 MG PO (16:37)
[2022-06-18] MEDS ORDERED: Bisoprolol Fuma10 MG PO (16:46)
[2022-06-18] MEDS ORDERED: LAMO100 PO (16:47)
[2022-06-18] MEDS ORDERED: CLON.5 PO (17:29)
[2022-06-18] MEDS ORDERED: HYDHCL25 PO (17:30)
[2022-06-18] MEDS ORDERED: TIZA4 PO (17:31)
[2022-06-19] MEDS ORDERED: ABILIFY MYCITE5 M2 PO (17:45)
== END 2022-06-18 08:52 | disposition other institution (70) ==
LOC: ER 07:31
DX: H40.211 Acute angle-closure glaucoma, right eye (principal); J44.9 Chronic obstructive pulmonary disease, unspecified; I11.0 Hypertensive heart disease with heart failure; I50.9 Heart failure, unspecified; I25.2 Old myocardial infarction; F17.200 Nicotine dependence, unspecified, uncomplicated; Z88.1 Allergy status to other antibiotic agents; Z88.5 Allergy status to narcotic agent; Z79.899 Other long term (current) drug therapy
CPT/HCPCS: 36415; 70481; A9270; J1120; J3010; Q9967

== ENCOUNTER 2022-06-18 10:15 | Inpatient (IN) | payer OTHER ==
[~2022-06-18] VITALS: Ht 167.6 cm; Wt 82.3 kg
[2022-06-18 11:11] LABS: BASOPHILS ABSOLUTE AUTO 0.07 K/mm3 (0.00-0.23); BASOPHILS PERCENT AUTO 1 % (0-2); EOSINOPHILS ABSOLUTE AUTO 0.24 K/mm3 (0.00-0.68); EOSINOPHILS PERCENT AUTO 2 % (0-6); Hematocrit 43.4 % (33.0-51.0); Hemoglobin 13.5 g/dL (11.5-16.0); IMMATURE GRAN ABSOLUTE AUTO 0.06 K/mm3 (0.00-0.10); IMMATURE GRAN PERCENT AUTO 1 % (0-1); LYMPHOCYTES ABSOLUTE AUTO 1.13 K/mm3 (0.84-5.20); LYMPHOCYTES PERCENT AUTO 11 % (21-46); MONOCYTES ABSOLUTE AUTO 0.49 K/mm3 (0.16-1.47); MONOCYTES PERCENT AUTO 5 % (4-13); Mean Corpuscular HGB 28.1 pg (26.0-34.0); Mean Corpuscular HGB Conc 31.1 g/dL (31.5-36.5); Mean Corpuscular Volume 90 fL (80-100); Mean Platelet Volume 10.5 fL (9.1-12.4); NEUTROPHILS ABSOLUTE AUTO 8.23 K/mm3 (1.96-9.15); NEUTROPHILS PERCENT AUTO 81 % (41-73); Platelet Count 357 K/mm3 (150-400); RDW Coefficient Variation 13.7 % (11.7-14.2); RDW Standard Deviation 45.4 fL (35.1-46.3); Red Blood Cell Count 4.81 M/mm3 (3.80-5.20); White Blood Cell Count 10.22 K/mm3 (4.00-11.30)
[2022-06-18 11:49] LABS: Albumin, Blood 3.8 g/dL (3.4-5.0); Bilirubin, Total 0.5 mg/dL (0.1-1.0); Bun/Creatinine Ratio 13.2 (12.0-20.0); Calcium, Blood 9.2 mg/dL (8.5-10.1); Creatinine, Blood 1.52 mg/dL (0.40-1.00); Potassium, Blood 4.4 mmol/L (3.5-5.5); Total Protein, Blood 7.8 g/dL (6.4-8.2)
[2022-06-18 13:04] LABS: U Amphetamine Screen DETECTED; U Barbituate Screen Not Detected; U Benzodiazapine Screen Not Detected; U Buprenorphine Screen Not Detected; U Cannabinoids Screen DETECTED; U Cocaine Screen Not Detected; U Methadone Screen Not Detected; U Methamphetamine Screen DETECTED; U Opiates Screen Not Detected; U Oxycodone Screen Not Detected; U Phencyclidine Screen Not Detected; U Propoxyphene Screen Not Detected
[2022-06-18] MEDS ORDERED: CLON1 PO (16:23)
[2022-06-18] MEDS ORDERED: Seroquel Xr50 MG PO (16:24)
[2022-06-18] MEDS ORDERED: Carvedilol12.5 MG PO (16:37)
[2022-06-18] MEDS ORDERED: Bisoprolol Fuma10 MG PO (16:46)
[2022-06-18] MEDS ORDERED: LAMO100 PO (16:47)
[2022-06-18] MEDS ORDERED: CLON.5 PO (17:29)
[2022-06-18] MEDS ORDERED: HYDHCL25 PO (17:30)
[2022-06-18] MEDS ORDERED: TIZA4 PO (17:31)
--- NOTE | 2022-06-18 18:04 | NUR ---
SUMMARY- PT ALERT AND ORIENTED X4. INDEPENDANT IN ROOM. TOLERATING FOOD AND FLUID. R EYE IS GROSSLY SWOLLEN AND WITH HEMATOMA PERIORBITAL, RED SCLERA, DRYING OUT. PUT LACRALUBE ON DRY MEMBRANE WITH SOME RELEIF. PERCOCET 1 Q4 PRN AIDS IN RELEIF OF PAIN PT DESCRIBES SEVERE PRESURE. SHE THOUGHT THIS AM HER EYE WAS GOING TO POP OUT. SHE STETES THE PRESURE HAS COME DOWN AND THE SWELLING SINCE THAN. PT AMBULATORY IN THE ROOM. NAPPING ON/OFF, STATES SHE HAD LITTLE SLEEP LAST NIGHT. WILL REPORT TO NOC RN
--- NOTE | 2022-06-18 18:08 | NUR ---
PT ADMITTED TO ROOM 302 FROM ED 1350 IN STRETCHER, AMBULATED INDEPENDANT, STEADY ON FEET TO BED. ORIENTED TO ROOM SET UP AND CALL LIGHT. PT HAS MOD ANXIETY AND VERY TALKATIVE. STATES CONT PAIN IN R EYE 04/12 "PRESURE".
--- NOTE | 2022-06-19 04:33 | NUR ---
SHIFT SUMMARY: NO ACUTE MEDICAL CHANGES OVERNIGHT. THE PT CONTINUES TO COMPLAIN OF PAIN IN THE R EYE FOR WHICH SHE IS MEDICATED WITH PERCOCET AND TORDOL. THE PTS R EYE APPEARS QUITE SWOLLEN THIS SHIFT, THERE IS ALSO SOME BLOOD PRESENT AT THE BASE OF THE LOWER EYELID. THE PT DENIES ANY SOB AT THIS TIME. CURRENTLY THE PT IS RESTING IN BED WITH THE BED IN THE LOWEST POSITION AND THE CALL LIGHT AT BEDSIDE.
[2022-06-19] MEDS ORDERED: ABILIFY MYCITE5 M2 PO (17:45)
--- NOTE | 2022-06-19 19:31 | NUR ---
SUMMARY- PT A/O X4. INDEPENDANT TO THE BATHROOM. PT REQUIRING PERC 5MG Q4 PRN FOR PAIN DESCRIBED THROBBING 8-10/10, PAIN IS PARTIALLY RELEIVED AEB PT SLEEPING FREQ AFTER DOSE. GIVEN TORODOL ONCE THIS PM. CLONAZAPAM PRN FOR ANXIETY. DR HUSEYIN JOSÉ (OPTH) AT BEDSIDE ABOUT 1100 TO EVAL PT AND ORDERS RECEIVED FOR EYE DROPPS AND INSTRUCTED TO USE WARM COMPRESS PRN AND LACRILUBE FREQ TO ENSURE EYE DOESNT DRY OUT. EYE SEEMS TO BE LESS SWOLLEN TODAY THAN YESTERDAY, PRESURES CHECKED BY OPTH, EYE DROPS ORDERED. PT TOLERATING FOOD AND FLUIDS. VOIDING REGULARLLY.
--- NOTE | 2022-06-20 06:38 | NUR ---
SHIFT SUMMARY; NO ACUTE CHANGES OVERNIGHT, PT DID HAVE SOME NAUSEA LAST NIGHT FOR WHICH SHE WAS MEDICATED WITH ZOFRAN. PT CONTINUES TO COMPLAIN OF PAIN IN HER R EYE FOR WHICH SHE IS MEDICATED WITH PERCOCET AND TORDOL. LACRI-LUBE AND WARM COMPRESS ALSO SEEM TO BE HELPING WITH IRRITATION AND PRESSURE IN THE EYE. PT WAS ABLE TO GET SOME REST LAST NIGHT. PT DID HAVE A INCONTINENT BM LAST NIGHT, SAYS HER STOMACH IS UPSET. PT IS CURRENTLY RESTING IN BED WITH THE BED IN THE LOWEST POSITION AND THE CALL LIGHT WITHIN REACH.
--- NOTE | 2022-06-20 17:04 | NUR ---
SHIFT SUMMARY NO ACUTE CHANGES DURING SHIFT. PT ALERT AND ORIENTED, CALLS APPROPRIATELY. PT REMAINS ON 2-3L NC, PT DESATS WHEN SLEEPING. R EYE STILL SWOLLEN, DISCOLORED. PRN MEDICATIONS ADMINISTERED FOR PAIN, NAUSEA, AND HEARTBURN PER EMAR. WILL CONITNUE TO MONITOR. CALL LIGHT WITHIN REACH.
--- NOTE | 2022-06-21 03:53 | NUR ---
SHIFT SUMMARY NOC A/OX4. PT ON 2-3L O2/NC FOR DESATING WHEN SLEEPING AND ANXIETY. PT R EYE IS STILL SEVERLY SWOLLEN WITH BLOODY DRAINAGE. PT IS WORRIED ABOUT LOSING EYE. EYE DROPS WERE ADMINSTERED PER EMAR WELL ARTIFICIAL TEARS TO PROVIDE LUBRICATION. PT WAS EXPERIENCING PN IN R EYE AND WAS MEDICATED PER EMAR WITH TORDOL AND NAUSEA WITH ZOFRAN. PT STILL ON IV AMPICILLIAN Q6H AND VANKO Q12. PT COULD BE SWITCHED TO PO ABX AND D/C HOME PER PROVIDER NOTES. PT WAS GIVEN CLONAZEPAM FOR ANXIETY AND TO HELP PT SLEEP. PT IS CURRENTLY RESTING WITH BED RAILS UP, BED IN LOWEST POSITION, BSC CLOSE, AND CALL LIGHT WITHIN REACH.
[2022-06-21 06:40] LABS: BASOPHILS ABSOLUTE AUTO 0.05 K/mm3 (0.00-0.23); BASOPHILS PERCENT AUTO 0 % (0-2); EOSINOPHILS ABSOLUTE AUTO 0.17 K/mm3 (0.00-0.68); EOSINOPHILS PERCENT AUTO 1 % (0-6); Hematocrit 36.3 % (33.0-51.0); Hemoglobin 11.1 g/dL (11.5-16.0); IMMATURE GRAN PERCENT AUTO 1 % (0-1); LYMPHOCYTES PERCENT AUTO 9 % (21-46); MONOCYTES ABSOLUTE AUTO 0.98 K/mm3 (0.16-1.47); MONOCYTES PERCENT AUTO 8 % (4-13); Mean Corpuscular HGB 28.2 pg (26.0-34.0); Mean Corpuscular HGB Conc 30.6 g/dL (31.5-36.5); Mean Corpuscular Volume 92 fL (80-100); Mean Platelet Volume 9.9 fL (9.1-12.4); NEUTROPHILS ABSOLUTE AUTO 9.84 K/mm3 (1.96-9.15); NEUTROPHILS PERCENT AUTO 80 % (41-73); Platelet Count 301 K/mm3 (150-400); RDW Coefficient Variation 13.1 % (11.7-14.2); RDW Standard Deviation 44.4 fL (35.1-46.3); Red Blood Cell Count 3.94 M/mm3 (3.80-5.20); White Blood Cell Count 12.24 K/mm3 (4.00-11.30)
--- NOTE | 2022-06-21 07:20 | NUR ---
recvd report from previous shift rn. Pt sleeping in bed, bed in lowest position, call light within reach, bed rails up x 2
[2022-06-21 07:24] LABS: Bun/Creatinine Ratio 8.8 (12.0-20.0); Calcium, Blood 8.6 mg/dL (8.5-10.1); Creatinine, Blood 1.47 mg/dL (0.40-1.00); Potassium, Blood 4.5 mmol/L (3.5-5.5)
[2022-06-21 12:08] LABS: Vancomycin, Trough 18.2 ug/mL (5.0-10.0)
--- NOTE | 2022-06-21 14:34 | NUR ---
dr Díaz, ophthamology, rounding on pt
--- NOTE | 2022-06-21 17:18 | NUR ---
SHIFT SUMMARY: VSS, NO ACUTE CHANGES, PT APPEARS SLEEPY, REPORTS PAIN IN EYE, HAS BEEN MEDICATE PER MAR FOR PAIN. PT HAS BEEN PROVIDED WITH CLEAN, WARM WET WASHCLOTHS TO DAB OOZING DRAINAGE FROM EYE. PT REQUESTS PAIN MEDICINE OFTEN. THIS RN HAS EDUCATED PT ON THE AVAILABLE ANALGESIA AND HAS PROVIDED SUCH PER MAR. PT'S DEMEANOR TO NURSING STAFF LABILE, AT TIMES PLEASANT, AT TIMES SHORT DIRECTION AND REPLY.
[2022-06-21] MEDS ORDERED: OMEP20ER PO (23:20)
--- NOTE | 2022-06-22 04:19 | NUR ---
SHIFT SUMMARY NOC PT A/OX3-4. PT WAS AGITATED AND ANXIOUS. VSS. DURING ROUNDING I SMELLED CIGERRETE SMOKE AND CONFISCATED THE PT'S CIGERETTES AND UROLOGIC SURGEON AND PUT THEM IN THE PT LOCKBOX. PT DENIED SMOKING. AN ORDER FOR A NICOTINE PATCH WAS OBTAINED FROM THE HOSPITALIST BY CHARGE NURSE. PATCH IS ON LEFT POSTERIOR SHOULDER. PT REFUSED O2 AND STOOL SOFTNER MEDICATION. PT HAD C/O PN IN EYE AND HEAD AND WAS MEDICATED PER EMAR. PT ALSO HAD TID DOSE OF KLONOPINE FOR ANXIETY. PT STATED THAT THEY ARE STILL CONCERNED ABOUT LOSING R EYE AND DO NOT THINK THAT THEY WILL D/C ON 06/22/22. PT IS CURRENTLY RESTING WITH BED RAILS UP, BED IN LOWEST POSITION, AND CALL LIGHT WITHIN REACH.
--- NOTE | 2022-06-22 11:23 | NUR ---
CARE ASSUMPTION THIS RN ASSUMED CARE AT 0700 FROM SAM GEE. VSS. PATIENT IS ALERT AND ORIENTED X4. PATIENT REPORTS PAIN IN BILATERAL EYES. PATIENT RATED 10, ON A SCALE OF 0-10 WITH 10 BEING THE WORST PAIN. PATIENT RECEIVED PAIN MED PER EMAR UPON REASSESSMENT PATIENT PAIN LEVEL WAS A 4. PATIENT HAD WEEPING BLOOD OUT OF HER RIGHT EYE. BOTH EYES ARE PURPLE COLORATION. PATIENT REPORTS NO SHORTNESS OF BREATH. PATIENT REPORTS NO CHEST PAIN/PRESSURE. ABD SOFTNONTENDER AND ACTIVE. PATIENT HAS SOME BRUISING ON SKIN. SEE SHIFT ASSESSMENT FOR FURTHER DETIALS. MD CONDON IN ROOM AND PLAN OF CARE IS FOR PATIENT TO DISCHARGE TODAY ON ORAL ABX. AGAPITONET VERBALIZED UNDERSTANDING. CALL LIGHT WITHIN REACH AND BED IN LOWEST POSITION.
[2022-06-22] MEDS ORDERED: TIMDOROPSO RIGHTEYE (11:40)
[2022-06-22] MEDS ORDERED: Alphagan P5 ML RIGHTEYE (11:40)
[2022-06-22] MEDS ORDERED: VISBIOME 112.51 EACH PO (11:41)
[2022-06-22] MEDS ORDERED: Nicoderm Cq1 EAC1 TOP (11:41)
[2022-06-22] MEDS ORDERED: AMOCLA875 PO (11:41)
--- NOTE | 2022-06-22 14:03 | NUR ---
DISCHARGE NOTE THIS RN WENT OVER NEW MEDICATIONS, FOLLOW UP APPOINTMENTS, AND EDUCATION ON CELLULITIS. PATIENT VERABLIZED UNDERSTANDING BUT AFFECT AND MOOD WAS WITHDRAWN AND FLAT. PATIENT HAD ALL BELONGINGS RETURNED, INCLUDE HER CIGGERATES WHEN LEAVING THE HOSPITAL. PATIENT LEFT WALKING OUT AND IN NO DISTRESS. PATIENT HAD DISCHARGE EDUCATION WITH HER WHEN LEAVING THE HOSPITAL.
--- NOTE | 2022-06-23 01:51 | NUR ---
REVIEWED INFORMATION FOR CURRENT ADMISSION
== END 2022-06-22 13:31 | disposition home or self-care (01) | DRG 121 ==
LOC: ER 10:15 → MEDS 11:30
PROVIDERS: Internal Medicine; Nurse Practitioner Acute Care; Student in an Organized Health Care Education/Training Program; ADMIT Internal Medicine
DX: H05.011 Cellulitis of right orbit (principal); F11.20 Opioid dependence, uncomplicated; I13.0 Hypertensive heart and chronic kidney disease with heart failure and stage 1 through stage 4 chronic kidney disease, or unspecified chronic kidney disease; N17.9 Acute kidney failure, unspecified; I42.0 Dilated cardiomyopathy; I50.22 Chronic systolic (congestive) heart failure; J44.1 Chronic obstructive pulmonary disease with (acute) exacerbation; Z68.41 Body mass index [BMI] 40.0-44.9, adult; I42.7 Cardiomyopathy due to drug and external agent; H11.31 Conjunctival hemorrhage, right eye; F15.10 Other stimulant abuse, uncomplicated; F19.10 Other psychoactive substance abuse, uncomplicated; N18.30 Chronic kidney disease, stage 3 unspecified; F41.9 Anxiety disorder, unspecified; F17.210 Nicotine dependence, cigarettes, uncomplicated; M41.80 Other forms of scoliosis, site unspecified; M51.9 Unspecified thoracic, thoracolumbar and lumbosacral intervertebral disc disorder; H54.61 Unqualified visual loss, right eye, normal vision left eye; M79.7 Fibromyalgia; G89.29 Other chronic pain; F12.10 Cannabis abuse, uncomplicated; S05.12XA Contusion of eyeball and orbital tissues, left eye, initial encounter; X58.XXXA Exposure to other specified factors, initial encounter; Z88.1 Allergy status to other antibiotic agents; Z88.5 Allergy status to narcotic agent; Z79.899 Other long term (current) drug therapy; Z79.01 Long term (current) use of anticoagulants; Z79.811 Long term (current) use of aromatase inhibitors; Z79.51 Long term (current) use of inhaled steroids; Z79.82 Long term (current) use of aspirin; I25.2 Old myocardial infarction; Z98.890 Other specified postprocedural states; Z96.651 Presence of right artificial knee joint; Z95.828 Presence of other vascular implants and grafts; Z93.0 Tracheostomy status
CPT/HCPCS: 36415; 70481; 80048; 80053; 80202; 83605; 83880; 85025; 87040; 94640; 94664; 94760; 96365-59; 96367; 96374; 96375; 99284-25; 99285-25; A9270; J0295; J1120; J1170; J1650; J1885; J2405; J3010; J3370; J7050; Q9967

== ENCOUNTER 2022-06-22 21:17 | Inpatient (IN) | payer OTHER ==
[~2022-06-22 21:17] MED LIST changes: +ABILIFY MYCITE5 M2 PO; +Alphagan P5 ML RIGHTEYE; +Bisoprolol Fuma10 MG PO; +Carvedilol12.5 MG PO; +HYDHCL25 PO; +LAMO100 PO; +Nicoderm Cq1 EAC1 TOP; +Seroquel Xr50 MG PO; +TIMDOROPSO RIGHTEYE; +TIZA4 PO; +VISBIOME 112.51 EACH PO
== END 2022-06-26 05:28 | disposition short-term general hospital (02) | DRG 92 ==
DX: I67.1 Cerebral aneurysm, nonruptured (principal); H05.011 Cellulitis of right orbit; I42.9 Cardiomyopathy, unspecified; I50.22 Chronic systolic (congestive) heart failure; Z20.822 Contact with and (suspected) exposure to COVID-19; J44.9 Chronic obstructive pulmonary disease, unspecified; M79.7 Fibromyalgia; F41.9 Anxiety disorder, unspecified; M41.9 Scoliosis, unspecified; I11.0 Hypertensive heart disease with heart failure; F17.210 Nicotine dependence, cigarettes, uncomplicated; F15.10 Other stimulant abuse, uncomplicated; F11.10 Opioid abuse, uncomplicated; E66.9 Obesity, unspecified; Z68.36 Body mass index [BMI] 36.0-36.9, adult; Z86.16 Personal history of COVID-19; I25.2 Old myocardial infarction; Z93.0 Tracheostomy status; Z98.890 Other specified postprocedural states; Z98.891 History of uterine scar from previous surgery; Z90.89 Acquired absence of other organs; Z88.1 Allergy status to other antibiotic agents; Z88.6 Allergy status to analgesic agent; Z79.899 Other long term (current) drug therapy

== ENCOUNTER 2022-07-29 14:13 | Emergency (ER) | payer OTHER ==
[~2022-07-29] VITALS: Ht 152.4 cm; Wt 78.0 kg
[2022-07-29 15:07] LABS: BASOPHILS ABSOLUTE AUTO 0.05 K/mm3 (0.00-0.23); BASOPHILS PERCENT AUTO 1 % (0-2); EOSINOPHILS ABSOLUTE AUTO 0.15 K/mm3 (0.00-0.68); EOSINOPHILS PERCENT AUTO 1 % (0-6); Hematocrit 39.6 % (33.0-51.0); Hemoglobin 12.6 g/dL (11.5-16.0); IMMATURE GRAN ABSOLUTE AUTO 0.04 K/mm3 (0.00-0.10); IMMATURE GRAN PERCENT AUTO 0 % (0-1); LYMPHOCYTES ABSOLUTE AUTO 1.75 K/mm3 (0.84-5.20); LYMPHOCYTES PERCENT AUTO 16 % (21-46); MONOCYTES ABSOLUTE AUTO 0.85 K/mm3 (0.16-1.47); MONOCYTES PERCENT AUTO 8 % (4-13); Mean Corpuscular HGB 28.1 pg (26.0-34.0); Mean Corpuscular HGB Conc 31.8 g/dL (31.5-36.5); Mean Corpuscular Volume 88 fL (80-100); Mean Platelet Volume 10.7 fL (9.1-12.4); NEUTROPHILS ABSOLUTE AUTO 7.99 K/mm3 (1.96-9.15); NEUTROPHILS PERCENT AUTO 74 % (41-73); Platelet Count 315 K/mm3 (150-400); RDW Coefficient Variation 13.4 % (11.7-14.2); RDW Standard Deviation 43.7 fL (35.1-46.3); Red Blood Cell Count 4.48 M/mm3 (3.80-5.20); White Blood Cell Count 10.83 K/mm3 (4.00-11.30)
[2022-07-29 15:48] LABS: Albumin, Blood 3.4 g/dL (3.4-5.0); Albumin/Globulin Ratio 0.8 (0.8-1.8); Bilirubin, Total 0.4 mg/dL (0.1-1.0); Bun/Creatinine Ratio 12.8 (12.0-20.0); Calcium, Blood 9.3 mg/dL (8.5-10.1); Creatinine, Blood 1.49 mg/dL (0.40-1.00); Potassium, Blood 4.5 mmol/L (3.5-5.5); Total Protein, Blood 7.4 g/dL (6.4-8.2)
[2022-07-29] MEDS ORDERED: Cleocin HCl300 MG PO (16:52)
[2022-07-29] MEDS ORDERED: Diflucan150 MG PO (16:52)
[2022-07-29] MEDS ORDERED: Norco 5-325 Ta1 EACH PO (16:52)
== END 2022-07-29 17:33 | disposition home or self-care (01) ==
LOC: ER 14:13
PROVIDERS: Physician Assistant
DX: L03.213 Periorbital cellulitis (principal); I11.0 Hypertensive heart disease with heart failure; I50.22 Chronic systolic (congestive) heart failure; J44.9 Chronic obstructive pulmonary disease, unspecified; F17.200 Nicotine dependence, unspecified, uncomplicated; Z88.1 Allergy status to other antibiotic agents; Z88.5 Allergy status to narcotic agent; Z79.899 Other long term (current) drug therapy
CPT/HCPCS: 36415; 70481; 80053; 85025; A9270; J1885; Q9967

== ENCOUNTER 2022-10-21 15:36 | Inpatient (IN) | payer OTHER ==
[~2022-10-21] VITALS: Ht 152.4 cm; Wt 75.7 kg
[~2022-10-21 15:36] MED LIST changes: +Cleocin HCl300 MG PO; +Diflucan150 MG PO
[2022-10-21 16:23] LABS: BASOPHILS ABSOLUTE AUTO 0.08 K/mm3 (0.00-0.23); BASOPHILS PERCENT AUTO 1 % (0-2); EOSINOPHILS ABSOLUTE AUTO 0.14 K/mm3 (0.00-0.68); EOSINOPHILS PERCENT AUTO 1 % (0-6); Hematocrit 40.4 % (33.0-51.0); Hemoglobin 11.7 g/dL (11.5-16.0); IMMATURE GRAN ABSOLUTE AUTO 0.04 K/mm3 (0.00-0.10); IMMATURE GRAN PERCENT AUTO 0 % (0-1); LYMPHOCYTES ABSOLUTE AUTO 2.09 K/mm3 (0.84-5.20); LYMPHOCYTES PERCENT AUTO 18 % (21-46); MONOCYTES ABSOLUTE AUTO 1.01 K/mm3 (0.16-1.47); MONOCYTES PERCENT AUTO 9 % (4-13); Mean Corpuscular HGB 25.8 pg (26.0-34.0); Mean Corpuscular Volume 89 fL (80-100); Mean Platelet Volume 10.3 fL (9.1-12.4); NEUTROPHILS ABSOLUTE AUTO 7.97 K/mm3 (1.96-9.15); NEUTROPHILS PERCENT AUTO 70 % (41-73); Platelet Count 362 K/mm3 (150-400); RDW Coefficient Variation 13.9 % (11.7-14.2); RDW Standard Deviation 45.2 fL (35.1-46.3); Red Blood Cell Count 4.54 M/mm3 (3.80-5.20); White Blood Cell Count 11.33 K/mm3 (4.00-11.30)
[2022-10-21 17:09] LABS: Albumin, Blood 3.2 g/dL (3.4-5.0); Albumin/Globulin Ratio 0.8 (0.8-1.8); Bilirubin, Total 0.2 mg/dL (0.1-1.0); Bun/Creatinine Ratio 20.7 (12.0-20.0); Calcium, Blood 9.2 mg/dL (8.5-10.1); Creatinine, Blood 1.84 mg/dL (0.40-1.00); Potassium, Blood 4.7 mmol/L (3.5-5.5); Total Protein, Blood 7.2 g/dL (6.4-8.2)
[2022-10-21 19:33] LABS: Anti-Xa UFH, PHA Monitoring <0.10 IU/mL; International Normalized Ratio 1.09; Prothrombin Time Results 11.4 Sec (9.7-11.5)
[2022-10-22 05:19] LABS: Source, Urine Clean Catch
[2022-10-22 05:39] LABS: Bilirubin, Urine Neg (Neg); Blood, Urine Neg (Neg); Glucose Qualitative, Urine Neg (Neg); Ketones, Urine Neg (Neg); Leukocyte Esterase, Urine Neg (Neg); Nitrite, Urine Neg (Neg); Protein, Urine 1+ (Neg); Specific Gravity, Urine 1.015 (1.003-1.022); Urobilinogen, Urine NORM (Normal)
[2022-10-22 05:44] LABS: Appearance, Urine Clear (Clear); Color, Urine Yellow (P-Yellow)
--- NOTE | 2022-10-22 05:49 | NUR ---
Assumed care of patient at 2101 as an ER admit. A/Ox4, independent in room. C/o anxiousness for which she normally takes Klonopin, Ativan was only ordered and given to patient with minimal relief. Upon arriving to the unit, patient was satting 53% on RA, patient is now on anywhere from 3-6L NC. Patient needs 6L when she's asleep and pulls off O2 in order to recover as she sats very quickly into 70's despite no apnea noted. LS fine crackles t/o. SR-ST on tele, patient will be 80's and jump up to 180's briefly before returning to 80's. Denies any CP/pressure, BP stable. Patient has a large appetite. Hyperactive bowel tones x4, patient says she's had diarrhea producing "yellow acid", although none noted on this shift. Dysuria with urination with only being able to urinate a small amount at a time. Patient says its not a UTI as "I never get UTI's", but does note that she feels she may have contracted an STI from having unprotected sex recently and would like that checked out if possible. Patient has bruising on chest and upper arms from a wood stack that had fallen on her recently. Patient has a lump just above L breast that is nontender. She also has been experiencing a hard time with managing her heartburn, says she attributes it to not getting her gallbladder out years ago when she was supposed to. To note, patient says she may show that she has meth in her system due to "taking heartburn pills I get from [place], and have been taking them for years". Will report to francy GEE.
[2022-10-22 05:57] LABS: U Amphetamine Screen DETECTED; U Barbituate Screen Not Detected; U Benzodiazapine Screen Not Detected; U Buprenorphine Screen Not Detected; U Cannabinoids Screen Not Detected; U Cocaine Screen DETECTED; U Methadone Screen Not Detected; U Methamphetamine Screen DETECTED; U Opiates Screen Not Detected; U Oxycodone Screen Not Detected; U Phencyclidine Screen Not Detected; U Propoxyphene Screen Not Detected
[2022-10-22 07:05] LABS: BASOPHILS PERCENT AUTO 0 % (0-2); EOSINOPHILS PERCENT AUTO 0 % (0-6); Hematocrit 37.1 % (33.0-51.0); Hemoglobin 10.9 g/dL (11.5-16.0); IMMATURE GRAN ABSOLUTE AUTO 0.02 K/mm3 (0.00-0.10); IMMATURE GRAN PERCENT AUTO 0 % (0-1); LYMPHOCYTES ABSOLUTE AUTO 0.86 K/mm3 (0.84-5.20); LYMPHOCYTES PERCENT AUTO 13 % (21-46); MONOCYTES ABSOLUTE AUTO 0.03 K/mm3 (0.16-1.47); MONOCYTES PERCENT AUTO 0 % (4-13); Mean Corpuscular HGB 25.8 pg (26.0-34.0); Mean Corpuscular HGB Conc 29.4 g/dL (31.5-36.5); Mean Corpuscular Volume 88 fL (80-100); Mean Platelet Volume 10.9 fL (9.1-12.4); NEUTROPHILS ABSOLUTE AUTO 5.76 K/mm3 (1.96-9.15); NEUTROPHILS PERCENT AUTO 86 % (41-73); Platelet Count 287 K/mm3 (150-400); RDW Coefficient Variation 13.6 % (11.7-14.2); RDW Standard Deviation 43.9 fL (35.1-46.3); Red Blood Cell Count 4.22 M/mm3 (3.80-5.20); White Blood Cell Count 6.67 K/mm3 (4.00-11.30)
[2022-10-22 07:19] LABS: Bun/Creatinine Ratio 18.4 (12.0-20.0); Calcium, Blood 8.4 mg/dL (8.5-10.1); Creatinine, Blood 1.85 mg/dL (0.40-1.00); Potassium, Blood 4.2 mmol/L (3.5-5.5)
--- NOTE | 2022-10-22 08:09 | NUR ---
Manager Of Hospital paged to request consultation. NO call back within 30 minutes; call to [facility] office to request consultation. Spoke with administrative assistant receptionist by phone.
[2022-10-22 15:03] LABS: CHOL/HDL RATIO 3.1; Cholesterol 142 mg/dL (50-200); HDL Cholesterol 46 mg/dL (>39); LDL/HDL RATIO 1.7; Low Density Lipoprotein Chol 78 mg/dL (0-110); Triglycerides 90 mg/dL (30-160); Very Low Density Lipoprot Chol 18 mg/dL (6-32)
--- NOTE | 2022-10-22 17:38 | NUR ---
SHIFT SUMMARY PT A/O X4, COOPERATIVE WITH CARE. PT REMAINED ON 2LPM NC TO MAINTAIN SPO2 >92%. PT HR IN THE 80'S, SINUS RHYTHM ON THE MONITOR. PT DENIES ANY ANGINA OR CHEST PRESSURE T/O SHIFT. PATIENT TROPONINS CONTINUED TO TREND UP THIS AM, HOSPITALIST WAS CONTACTED. ORDERS WERE RECEIVED TO CONTINUE TO TREND TROPONINS AND CONSULT CARDIOLOGY. DR LEPE SAW THE PATIENT THIS AFTERNOON. AN ECHO AND A STRESS TEST WERE ORDERED. PT COMPLETED ECHO AND FIRST PORTION OF STRESS TEST TODAY. PT WILL BE NPO AFTER BREAKFAST IN THE AM AND COMPLETE THE SECOND PORTION OF THE STRESS TEST TOMORROW AFTERNOON. PT IS INDEPENDENT IN THE ROOM. PT APPEARED TO BE SLEEPING THE MAJORITY OF THE DAY. RESPIRATIONS WERE EVEN AND UNLABORED. SHE STATED MULTIPLE TIMES THAT SHE WAS "EXHAUSTED AND JUST WANTED TO SLEEP". THIS RN WILL CONTINUE TO CARE FOR PATIENT AND REPORT TO ONCOMING RN AT SHIFT CHANGE.
[2022-10-22 22:03] LABS: International Normalized Ratio 1.08; Prothrombin Time Results 11.3 Sec (9.7-11.5)
[2022-10-23 05:43] LABS: Hematocrit 35.9 % (33.0-51.0); Hemoglobin 10.6 g/dL (11.5-16.0); Mean Corpuscular HGB Conc 29.5 g/dL (31.5-36.5); Mean Corpuscular Volume 88 fL (80-100); Platelet Count 316 K/mm3 (150-400); RDW Coefficient Variation 13.2 % (11.7-14.2); RDW Standard Deviation 42.8 fL (35.1-46.3); Red Blood Cell Count 4.07 M/mm3 (3.80-5.20); White Blood Cell Count 18.54 K/mm3 (4.00-11.30)
[2022-10-23 06:13] LABS: Alanine Aminotransfer (ALT/SGP 25 U/L (12-78); Albumin, Blood 2.9 g/dL (3.4-5.0); Albumin/Globulin Ratio 0.8 (0.8-1.8); Alk Phos 53 U/L (50-136); Anion Gap Unable to Calculate mmol/L (6-16); Aspartate Aminotrans (AST/SGOT 15 U/L (12-37); Bilirubin, Total 0.4 mg/dL (0.1-1.0); Blood Urea Nitrogen 32 mg/dL (8-24); Bun/Creatinine Ratio 22.4 (12.0-20.0); CO2, Blood 37 mmol/L (21-32); Calcium, Blood 8.8 mg/dL (8.5-10.1); Chloride, Blood 99 mmol/L (98-108); Creatinine, Blood 1.43 mg/dL (0.40-1.00); Globulin, Blood 3.6 g/dL (2.2-4.0); Glomerular Filtration Rate 46 (60-); Glucose, Blood 145 mg/dL (70-99); Potassium, Blood 4.7 mmol/L (3.5-5.5); Sodium, Blood 134 mmol/L (136-145); Total Protein, Blood 6.5 g/dL (6.4-8.2)
--- NOTE | 2022-10-23 06:14 | NUR ---
Assumed care of patient at 1900. A/Ox4, independent in room. Patient is on 1-2L and satting above 95%. Patient had CT PE study this shift. SR 70's on tele. VSS. Slept most of the night. Heparin gtt restarted per emar. Will update dayshift RN.
[2022-10-23] MEDS ORDERED: SUCR1 PO (17:05)
[2022-10-23] MEDS ORDERED: OMEP20ER PO (17:06)
[2022-10-24 02:08] LABS: CHLAMYDIA TRACHOMATIS, NAA Negative (Negative)
--- NOTE | 2022-10-24 04:57 | NUR ---
SHIFT SUMMARY NO ACUTE CHANGES NOTED THROUGH THE NIGHT, PT HAS BEEN ABLE TO SLEEP WITH NO PROBLEMS, VSS, SPO2 >95% 2 LMP O2 VIA NC, DENIES SOB,CP/PRESSURE BUT CONTINUES TO C/O INDEGESTION, NSR 70-80'S, PT WAS ENC TO REFRAIN FROM SODA & MULTIPLE SNACKS, SHE STATED "PEPSI DOESN'T BOTHER ME", SHE ASKED FOR CHEESE & CRACKERS AFTER C/O HEARTBURN & STATING THAT NOTHING IS BEING DONE, WHEN REMINDED TO REFRAIN SHE STATED "I BURPED AND IT WENT AWAY, CAN I HAVE MY CRACKERS NOW", SNACK WAS PROVIDED, PT C/O ONCE AGAIN, SHE STATED THAT SHE WAS HOPING TO HAVE HER GALLBLADDER REMOVED WHILE SHE WAS HERE AND WANTED A GI CONSULT, PT ADVISED TO SPEAK OF THESE CONCERNS WITH THE MD IN THE AM. PT IS VOIDING WNL, CURRENTLY SLEEPING, RESP UNLABORED, CALL LIGHT IN REACH, WCTM & REPORT TO ONCOMING RN.
[2022-10-24] MEDS ORDERED: Atarax10 MG PO (11:19)
[2022-10-24] MEDS ORDERED: Deltasone 10 mg10 MG PO (11:20)
[2022-10-24] MEDS ORDERED: GI COCKTAIL PO (11:20)
--- NOTE | 2022-10-24 12:45 | NUR ---
UPDATE DISCHARGE INSTRUCTIONS PROVIDED TO PT. PT REFUSED LAST SET OF VITAL SIGNS PRIOR TO DISCHARGE. PT EDUCATED ON MEDICATIONS AND ALL CHANGES. ALL QUESTIONS ANSWERED. LINCAIRE IN AND PROVIDED PORTABLE O2. PT REFUSED WHEEL CHAIR RIDE OUT AND PT WOULD NOT PUT PORTABLE O2 ON INSTRUCTED. PT EDUCATED OF RISKS OF NOT WEARING OXYGEN.
== END 2022-10-24 12:42 | disposition home or self-care (01) | DRG 191 ==
LOC: ER 15:36 → PCU 19:03
PROVIDERS: Emergency Medicine; Family Medicine; Hospitalist; Internal Medicine; Internal Medicine Cardiovascular Disease; Physician Assistant; ADMIT Internal Medicine
DX: J44.1 Chronic obstructive pulmonary disease with (acute) exacerbation (principal); I13.0 Hypertensive heart and chronic kidney disease with heart failure and stage 1 through stage 4 chronic kidney disease, or unspecified chronic kidney disease; I42.8 Other cardiomyopathies; I50.22 Chronic systolic (congestive) heart failure; N17.9 Acute kidney failure, unspecified; I24.8 Other forms of acute ischemic heart disease; G62.9 Polyneuropathy, unspecified; K21.9 Gastro-esophageal reflux disease without esophagitis; F17.210 Nicotine dependence, cigarettes, uncomplicated; N18.30 Chronic kidney disease, stage 3 unspecified; I27.20 Pulmonary hypertension, unspecified; F41.9 Anxiety disorder, unspecified; F15.10 Other stimulant abuse, uncomplicated; E66.9 Obesity, unspecified; Z68.32 Body mass index [BMI] 32.0-32.9, adult; Z90.89 Acquired absence of other organs; Z98.890 Other specified postprocedural states; Z98.891 History of uterine scar from previous surgery; Z93.0 Tracheostomy status; Z88.1 Allergy status to other antibiotic agents; Z88.6 Allergy status to analgesic agent; Z79.51 Long term (current) use of inhaled steroids; Z79.899 Other long term (current) drug therapy
CPT/HCPCS: 36415; 71046; 71260; 78452; 80048; 80053; 80061; 83690; 83880; 84443; 84484; 85025; 85027; 85379; 85520; 85610; 85730; 87491; 87591; 93005; 93010; 93017; 93306; 94640; 94664; 94760; 94761; 94762; 96365; 96375; 99285-25; A9270; A9500; C1751; C9113; J0706; J1644; J2785; J2930; Q9967

== ENCOUNTER 2023-06-30 09:03 | Inpatient (IN) | payer OTHER ==
[~2023-06-30] VITALS: Ht 152.4 cm; Wt 71.0 kg
[~2023-06-30 09:03] MED LIST changes: +Atarax10 MG PO; +Deltasone 10 mg10 MG PO; +FAMO20 PO; +GI COCKTAIL PO; +PANT40 PO; +SUCR1 PO
[2023-06-30 09:50] LABS: BASOPHILS ABSOLUTE AUTO 0.06 K/mm3 (0.00-0.23); BASOPHILS PERCENT AUTO 0 % (0-2); EOSINOPHILS ABSOLUTE AUTO 0.09 K/mm3 (0.00-0.68); EOSINOPHILS PERCENT AUTO 1 % (0-6); IMMATURE GRAN ABSOLUTE AUTO 0.07 K/mm3 (0.00-0.10); IMMATURE GRAN PERCENT AUTO 0 % (0-1); LYMPHOCYTES ABSOLUTE AUTO 1.63 K/mm3 (0.84-5.20); LYMPHOCYTES PERCENT AUTO 10 % (21-46); MONOCYTES ABSOLUTE AUTO 1.14 K/mm3 (0.16-1.47); MONOCYTES PERCENT AUTO 7 % (4-13); Mean Corpuscular HGB 25.7 pg (26.0-34.0); Mean Corpuscular HGB Conc 29.5 g/dL (31.5-36.5); Mean Corpuscular Volume 87 fL (80-100); Mean Platelet Volume 10.7 fL (9.1-12.4); NEUTROPHILS ABSOLUTE AUTO 13.84 K/mm3 (1.96-9.15); NEUTROPHILS PERCENT AUTO 82 % (41-73); NRBC ABSOLUTE 0.02 K/mm3 (0.00-0.02); NRBC Auto 0.1 /100 WBC (0.0-0.2); Platelet Count 528 K/mm3 (150-400); RDW Standard Deviation 50.4 fL (35.1-46.3); Red Blood Cell Count 5.06 M/mm3 (3.80-5.20); White Blood Cell Count 16.83 K/mm3 (4.00-11.30)
[2023-06-30 10:19] LABS: Albumin/Globulin Ratio 0.7 (0.8-1.8); Bilirubin, Total 0.3 mg/dL (0.1-1.0); Bun/Creatinine Ratio 20.3 (12.0-20.0); Calcium, Blood 9.5 mg/dL (8.5-10.1); Creatinine, Blood 2.37 mg/dL (0.40-1.00); Globulin, Blood 4.2 g/dL (2.2-4.0); Potassium, Blood 5.1 mmol/L (3.5-5.5); Total Protein, Blood 7.2 g/dL (6.4-8.2)
[2023-06-30 12:43] LABS: Source, Urine Clean Catch
[2023-06-30 12:47] LABS: Appearance, Urine Hazy (Clear); Bilirubin, Urine Neg (Neg); Blood, Urine 1+ (Neg); Color, Urine Yellow (P-Yellow); Glucose Qualitative, Urine Neg (Neg); Ketones, Urine Neg (Neg); Leukocyte Esterase, Urine Neg (Neg); Nitrite, Urine Neg (Neg); Protein, Urine 3+ (Neg); Specific Gravity, Urine 1.015 (1.003-1.022); Urobilinogen, Urine NORM (Normal)
[2023-06-30 12:58] LABS: Bacteria Rare /hpf; Granular Casts 0-2 /lpf (0); Squamous Epithelial Cells Mod /hpf (Few); Transitional Epithelial Cells Rare /hpf (0-Rare)
[2023-06-30 14:24] LABS: U Amphetamine Screen DETECTED; U Barbituate Screen Not Detected; U Benzodiazapine Screen DETECTED; U Buprenorphine Screen Not Detected; U Cannabinoids Screen DETECTED; U Cocaine Screen Not Detected; U Methadone Screen Not Detected; U Methamphetamine Screen DETECTED; U Opiates Screen Not Detected; U Oxycodone Screen Not Detected; U Phencyclidine Screen Not Detected
[2023-06-30 15:52] VITALS: BP 123/88
--- NOTE | 2023-06-30 18:26 | NUR ---
Admission note: Received pt awake and alert x3 from ED at 1550. Ambulated to bed/bathroom in dependently. Resp even nonlabored on 2L nc. Oriented to room and call light. Pt declines seq comp device, stating will wear at night.
[2023-06-30 19:36] VITALS: BP 121/81
[2023-07-01 02:10] VITALS: BP 121/88
--- NOTE | 2023-07-01 04:32 | NUR ---
SHIFT SUMMARY ADMITTED FOR ACUTE RENAL FAILURE. FULL CODE. WE ARE DIURESING HER AND ANTIB RX ARE SCHEDULED. URINE CX+ FOR UTI. SHE IS A&O X4, INDEPENDENT IN ROOM. HX OF CHF, COPD. 2 LPM O2 VIA NC @ HOME. CARDIAC DIET. REPORT OF TARRY STOOLS ON ADMIT, NO BM'S - TARRY OR OTHERWISE - REPORTED THIS SHIFT.
[2023-07-01 07:53] VITALS: BP 110/71
[2023-07-01 08:05] LABS: BASOPHILS ABSOLUTE AUTO 0.05 K/mm3 (0.00-0.23); BASOPHILS PERCENT AUTO 0 % (0-2); EOSINOPHILS ABSOLUTE AUTO 0.27 K/mm3 (0.00-0.68); EOSINOPHILS PERCENT AUTO 2 % (0-6); Hematocrit 38.8 % (33.0-51.0); Hemoglobin 11.3 g/dL (11.5-16.0); IMMATURE GRAN ABSOLUTE AUTO 0.07 K/mm3 (0.00-0.10); IMMATURE GRAN PERCENT AUTO 1 % (0-1); LYMPHOCYTES ABSOLUTE AUTO 1.62 K/mm3 (0.84-5.20); LYMPHOCYTES PERCENT AUTO 12 % (21-46); MONOCYTES ABSOLUTE AUTO 1.07 K/mm3 (0.16-1.47); MONOCYTES PERCENT AUTO 8 % (4-13); Mean Corpuscular HGB 25.9 pg (26.0-34.0); Mean Corpuscular HGB Conc 29.1 g/dL (31.5-36.5); Mean Corpuscular Volume 89 fL (80-100); Mean Platelet Volume 10.4 fL (9.1-12.4); NEUTROPHILS ABSOLUTE AUTO 10.56 K/mm3 (1.96-9.15); NEUTROPHILS PERCENT AUTO 77 % (41-73); Platelet Count 385 K/mm3 (150-400); RDW Coefficient Variation 15.8 % (11.7-14.2); RDW Standard Deviation 51.2 fL (35.1-46.3); Red Blood Cell Count 4.36 M/mm3 (3.80-5.20); White Blood Cell Count 13.64 K/mm3 (4.00-11.30)
[2023-07-01 08:40] LABS: Albumin, Blood 2.6 g/dL (3.4-5.0); Albumin/Globulin Ratio 0.7 (0.8-1.8); Bilirubin, Total 0.2 mg/dL (0.1-1.0); Bun/Creatinine Ratio 19.4 (12.0-20.0); Calcium, Blood 8.9 mg/dL (8.5-10.1); Creatinine, Blood 2.16 mg/dL (0.40-1.00); Globulin, Blood 3.5 g/dL (2.2-4.0); Potassium, Blood 5.5 mmol/L (3.5-5.5); Total Protein, Blood 6.1 g/dL (6.4-8.2)
[2023-07-01 15:38] VITALS: BP 115/76
--- NOTE | 2023-07-01 16:43 | NUR ---
"Spiritual Care Attempted | Pt. request Pt. is awake in bed when I visit. After introductions Pt requested that this shrimp boat captain return tomorrow. Pt. verbalized gratitude for the spiritual care visit."
--- NOTE | 2023-07-01 18:03 | NUR ---
SHIFT SUMMARY- PT IS ALERT, ORIENTED AND INDEPENDENT IN THE ROOM. IV WAS NOT PATENT AND A NEW ONE WAS PLACED IN THE FORE ARM CURRENTLY INFUSING IVF AT 100ML/HR PER DR ORDER. PT HAD A C/O LUQ PAIN THIS EVENING, SHE STATES THIS PAIN IS THE REASON SHE CAME IN TO THE HOSPITAL. MEDICATED WITH TYLENOL, REASSESSMENT PENDING AT THIS TIME. PT HAD A SHOWER THIS EVENING AND IS CURRENTLY SITTING UP AT THE EOB WITH HER CALL LIGHT IN REACH NO S&S OF DISTRESS NOTED, EATING HER DINNER.
--- NOTE | 2023-07-01 19:39 | NUR ---
IV FENTANYL 25MCG- PT MEDICATED WITH 25 MCG IV FENTANYL WITH SOME EFFECT PAIN DOWN TO 4/10 FROM 9. ONE ADDITIONAL DOSE ORDERED BY MD IF NEEDED. NIGHT RN IS AWARE. OT VERBAL ORDER PLACED IN ORDER MANAGEMENT.
[2023-07-01 19:47] VITALS: BP 87/51
--- NOTE | 2023-07-01 20:40 | NUR ---
CALLED HOSPITALIST HYPOTENSION NOTED. INFORMED HOSPITALIST. 500 ML BOLUS ORDERED
[2023-07-01 22:23] VITALS: BP 103/67
[2023-07-02 05:37] VITALS: BP 115/81
[2023-07-02 06:02] LABS: Hematocrit 36.9 % (33.0-51.0); Hemoglobin 10.4 g/dL (11.5-16.0); Mean Corpuscular HGB 25.7 pg (26.0-34.0); Mean Corpuscular HGB Conc 28.2 g/dL (31.5-36.5); Mean Corpuscular Volume 91 fL (80-100); Mean Platelet Volume 10.5 fL (9.1-12.4); NRBC ABSOLUTE 0.02 K/mm3 (0.00-0.02); NRBC Auto 0.1 /100 WBC (0.0-0.2); Platelet Count 352 K/mm3 (150-400); RDW Coefficient Variation 15.5 % (11.7-14.2); RDW Standard Deviation 52.1 fL (35.1-46.3); Red Blood Cell Count 4.04 M/mm3 (3.80-5.20)
[2023-07-02 06:29] LABS: Alanine Aminotransfer (ALT/SGP 171 U/L (12-78); Albumin, Blood 2.6 g/dL (3.4-5.0); Albumin/Globulin Ratio 0.8 (0.8-1.8); Alk Phos 70 U/L (50-136); Anion Gap Unable to Calculate mmol/L (6-16); Aspartate Aminotrans (AST/SGOT 22 U/L (12-37); Bilirubin, Direct <0.1 mg/dL (0.0-0.3); Bilirubin, Indirect Unable to Calculate mg/dL (0.1-0.7); Bilirubin, Total 0.3 mg/dL (0.1-1.0); Blood Urea Nitrogen 39 mg/dL (8-24); Bun/Creatinine Ratio 19.7 (12.0-20.0); CO2, Blood 33 mmol/L (21-32); Calcium, Blood 8.3 mg/dL (8.5-10.1); Chloride, Blood 102 mmol/L (98-108); Creatinine, Blood 1.98 mg/dL (0.40-1.00); Globulin, Blood 3.4 g/dL (2.2-4.0); Glomerular Filtration Rate 31 (60-); Glucose, Blood 110 mg/dL (70-99); Sodium, Blood 134 mmol/L (136-145)
[2023-07-02 07:26] VITALS: BP 116/75
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
--- NOTE | 2023-07-02 16:03 | NUR ---
Pt. is laying in bed and welcomes my visit. Pt. displays evidence of being guarded and verbalized that she is being taken in for a CT Scan. Pt. asked for prayer specifically for her to break her cigarette habit. Prayed with Pt. Pt. verbalized gratitude for the spiritual care visit.
[2023-07-02 16:12] VITALS: BP 114/83
[2023-07-02 18:02] LABS: HEPATITIS A ANTIBODY, IGM Negative (Negative); HEPATITIS B CORE ANTIBODY, IGM Negative (Negative); HEPATITIS B SURFACE ANTIGEN Negative (Negative); HEPATITIS C AB CIA INTERP Negative (Negative); HEPATITIS C ANTIBODY CIA INDEX 0.06 IV
--- NOTE | 2023-07-02 18:10 | NUR ---
SHIFT SUMMARY: PT A/O X 4 IND IN ROOM, PLEASANT AND COOPERATIVE WITH CARE TODAY. PT DID HAVE COMPLAINTS OF HAVING FIRM ABD WHICH WAS NOT HER BASELINE. CT SCAN ORDERED AND REVEALED SEVERE CONSTIPATION. PT GIVEN BOWEL MEDS PER OCT. PT DID HAVE MED BROWN FORMED STOOL JUST PRIOR TO BOWEL MEDICATIONS GIVEN. PT EDUCATED ON IMPORTANCE OF DRINKING PLENTY OF FLUIDS AND GIVEN A ADMIT CUP WITH MEASUREMENTS. PT ALSO EDUCATED ON PAIN MANAGEMENT WITH CONSTIPATION AND IMPORTANCE OF AVOIDING NARCOTICS IF ABLE. PT VU AND DID NOT PUSH TAKING NARCOTICS AFTER DISCUSSION. PT CONTINUES TO BE ON 2 LPM VIA NC. CONTINUES TO HAVE OCCASIONAL MOIST COUGH.
[2023-07-02 19:57] VITALS: BP 121/98
--- NOTE | 2023-07-03 04:04 | NUR ---
SHIFT SUMMARY PT A&0X4 AND CALLS APPROPRIATELY. PT EXPERIENCED SOME ANXIOUSNESS AND EXPRESSED SADNESS REGARDING FEELING OVERWHELMED WITH VARIOUS STRESSORS. THERAPEUTIC COMMUNICATION UTELIZED SUCCESSFULLY AND PT EXPRESSED MORE PRODUCTIVE IDEAS. PT COMPLAINS OF ABDOMINAL PAIN R/T CONSTIPATION. MEDICATION ADMINISTERED ORDERED FOR PAIN. VSS. NO ACUTE EVENTS DURING SHIFT. PT LEFT IN A POSITION OF SAFETY WITH FALL PRECAUTIONS IN PLACE AND CALL LIGHT WITHIN REACH.
[2023-07-03 05:14] LABS: Hematocrit 37.7 % (33.0-51.0); Hemoglobin 10.5 g/dL (11.5-16.0); Mean Corpuscular HGB 25.2 pg (26.0-34.0); Mean Corpuscular HGB Conc 27.9 g/dL (31.5-36.5); Mean Corpuscular Volume 91 fL (80-100); Mean Platelet Volume 10.8 fL (9.1-12.4); NRBC ABSOLUTE 0.03 K/mm3 (0.00-0.02); NRBC Auto 0.2 /100 WBC (0.0-0.2); Platelet Count 345 K/mm3 (150-400); RDW Coefficient Variation 15.4 % (11.7-14.2); RDW Standard Deviation 51.3 fL (35.1-46.3); Red Blood Cell Count 4.16 M/mm3 (3.80-5.20); White Blood Cell Count 15.57 K/mm3 (4.00-11.30)
[2023-07-03 06:04] LABS: Albumin, Blood 2.8 g/dL (3.4-5.0); Albumin/Globulin Ratio 0.8 (0.8-1.8); Bilirubin, Total 0.3 mg/dL (0.1-1.0); Bun/Creatinine Ratio 20.4 (12.0-20.0); Calcium, Blood 8.6 mg/dL (8.5-10.1); Creatinine, Blood 1.62 mg/dL (0.40-1.00); Globulin, Blood 3.5 g/dL (2.2-4.0); Total Protein, Blood 6.3 g/dL (6.4-8.2)
[2023-07-03 07:55] VITALS: BP 151/103
[2023-07-03 17:51] VITALS: BP 110/80
--- NOTE | 2023-07-03 18:50 | NUR ---
SHIFT SUMMARY: PT A/O X 4, IND IN ROOM, COOPERATIVE WITH CARE. PT HAD NEW C/O R EAR PAIN THIS AM BUT DENIED NEED FOR PAIN MEDICATIONS. PT CONTINUED TO HAVE SOB WHEN SHE WAS ACTIVE THROUGHOUT THE DAY. REMAINS ON 2 LPM VIA NC. PT TOLERATING PO INTAKE AND REPORTS SHE HAD 3 REGULAR SIZED BM'S TODAY.
[2023-07-03 20:07] VITALS: BP 113/67
--- NOTE | 2023-07-04 04:28 | NUR ---
SHIFT SUMMARY TRENDI WAS DROWSY BUT ROUSABLE DURING ASSESSMENT, SHE IS FULLY ORIENTED AND COOPERATIVE WITH CARE. PT IS IND IN ROOM. PT'S R WRIST IV WAS INFILTRATED AT ASSESSMENT, NO IV MEDS DUE UNTIL 0900, I FAILED AN IV START ATTEMPT AND WILL PASS THE IV START TO MY CHARGE NURSE PRIOR TO DAY SHIFT. NO NEW COMPLAINTS THIS SHIFT AND NO ACUTE EVENTS. PT IS RESTING IN BED AT A LOW POSITION WITH CALL LIGHT IN REACH WHICH SHE IS ABLE TO USE APPROPRIATELY
[2023-07-04 04:52] VITALS: BP 124/79
[2023-07-04 07:19] VITALS: BP 126/67
[2023-07-04 08:09] LABS: Albumin, Blood 2.4 g/dL (3.4-5.0); Anion Gap 0 mmol/L (6-16); Blood Urea Nitrogen 24 mg/dL (8-24); Bun/Creatinine Ratio 16.2 (12.0-20.0); CO2, Blood 39 mmol/L (21-32); Calcium, Blood 8.4 mg/dL (8.5-10.1); Chloride, Blood 101 mmol/L (98-108); Creatinine, Blood 1.48 mg/dL (0.40-1.00); Glomerular Filtration Rate 44 (60-); Glucose, Blood 118 mg/dL (70-99); Phosphorus, Blood 3.2 mg/dL (2.5-4.9); Potassium, Blood 4.4 mmol/L (3.5-5.5); Sodium, Blood 140 mmol/L (136-145)
[2023-07-04 08:22] LABS: Hematocrit 35.6 % (33.0-51.0); Mean Corpuscular HGB 25.3 pg (26.0-34.0); Mean Corpuscular HGB Conc 28.1 g/dL (31.5-36.5); Mean Corpuscular Volume 90 fL (80-100); Mean Platelet Volume 10.6 fL (9.1-12.4); Platelet Count 340 K/mm3 (150-400); RDW Coefficient Variation 15.7 % (11.7-14.2); Red Blood Cell Count 3.95 M/mm3 (3.80-5.20); White Blood Cell Count 10.92 K/mm3 (4.00-11.30)
[2023-07-04] MEDS ORDERED: Calcium Carbon500 MG PO (11:12)
[2023-07-04] MEDS ORDERED: MIRALAX17 GM PO (11:12)
[2023-07-04] MEDS ORDERED: GUAI600T33 PO (11:12)
[2023-07-04] MEDS ORDERED: VISBIOME 112.51 EACH PO (11:13)
[2023-07-04] MEDS ORDERED: CEFU500T30 PO (11:13)
[2023-07-04] MEDS ORDERED: FURO20 PO (11:14)
--- NOTE | 2023-07-04 19:21 | NUR ---
DISCHARGE SUMMARY: PT DISCHARGED HOME TODAY WITH HOME O2 DELIVERY. PT ON 3 LPM VIA NC AT DISCHARGE. PT EDUCATED ON DISCHARGE MEDICATIONS AND INSTRUCTIONS. PT VU. PT ASSISTED WITH GETTING DRESSED, PACKING BELONGINGS. PT HAD DENTURES WITH HER. PT ESCORTED TO POV VIA WC BY [place].
== END 2023-07-04 19:31 | disposition home health service (06) | DRG 683 ==
LOC: ER 09:03 → MEDS 13:51 → ENPENDDIS 07-04 10:30 → MEDS 07-04 19:31
PROVIDERS: Emergency Medicine; ADMIT Internal Medicine
DX: N17.9 Acute kidney failure, unspecified (principal); E87.1 Hypo-osmolality and hyponatremia; I50.32 Chronic diastolic (congestive) heart failure; I13.0 Hypertensive heart and chronic kidney disease with heart failure and stage 1 through stage 4 chronic kidney disease, or unspecified chronic kidney disease; N39.0 Urinary tract infection, site not specified; I42.0 Dilated cardiomyopathy; K21.9 Gastro-esophageal reflux disease without esophagitis; K29.70 Gastritis, unspecified, without bleeding; N18.30 Chronic kidney disease, stage 3 unspecified; E86.0 Dehydration; E87.6 Hypokalemia; E87.70 Fluid overload, unspecified; I27.20 Pulmonary hypertension, unspecified; R74.01 Elevation of levels of liver transaminase levels; F43.10 Post-traumatic stress disorder, unspecified; F41.9 Anxiety disorder, unspecified; F15.90 Other stimulant use, unspecified, uncomplicated; F12.90 Cannabis use, unspecified, uncomplicated; J44.9 Chronic obstructive pulmonary disease, unspecified; E87.5 Hyperkalemia; Z88.1 Allergy status to other antibiotic agents; Z88.6 Allergy status to analgesic agent; I25.2 Old myocardial infarction; Z87.891 Personal history of nicotine dependence; Z91.148 Patient's other noncompliance with medication regimen for other reason
CPT/HCPCS: 36415; 71045; 74176; 80048; 80053; 80069; 80074; 80076; 81001; 82947; 83690; 83880; 84132; 84145; 84300; 85025; 85027; 87086; 93005; 93010; 93306; 94640; 94664; 94760; 94761; 96361; 96374; 96375; 99285-25; A9270; C9113; J0696; J1790; J1815; J1940; J3010; J7030

== ENCOUNTER → 2023-09-17 | Outpatient (CLI) | payer OTHER ==
[~2023-09-17] MED LIST changes: +CEFU500T30 PO; +Calcium Carbon500 MG PO; +FURO20 PO; +GUAI600T33 PO; +MIRALAX17 GM PO
[2023-09-17 17:48] LABS: BASOPHILS ABSOLUTE AUTO 0.09 K/mm3 (0.00-0.23); BASOPHILS PERCENT AUTO 1 % (0-2); EOSINOPHILS ABSOLUTE AUTO 0.39 K/mm3 (0.00-0.68); EOSINOPHILS PERCENT AUTO 4 % (0-6); Hematocrit 45.2 % (33.0-51.0); Hemoglobin 13.7 g/dL (11.5-16.0); IMMATURE GRAN ABSOLUTE AUTO 0.04 K/mm3 (0.00-0.10); IMMATURE GRAN PERCENT AUTO 0 % (0-1); LYMPHOCYTES ABSOLUTE AUTO 1.83 K/mm3 (0.84-5.20); LYMPHOCYTES PERCENT AUTO 20 % (21-46); MONOCYTES ABSOLUTE AUTO 0.67 K/mm3 (0.16-1.47); MONOCYTES PERCENT AUTO 7 % (4-13); Mean Corpuscular HGB 25.9 pg (26.0-34.0); Mean Corpuscular HGB Conc 30.3 g/dL (31.5-36.5); Mean Corpuscular Volume 85 fL (80-100); Mean Platelet Volume 10.7 fL (9.1-12.4); NEUTROPHILS ABSOLUTE AUTO 6.12 K/mm3 (1.96-9.15); NEUTROPHILS PERCENT AUTO 67 % (41-73); Platelet Count 308 K/mm3 (150-400); RDW Coefficient Variation 18.4 % (11.7-14.2); RDW Standard Deviation 57.1 fL (35.1-46.3); Red Blood Cell Count 5.29 M/mm3 (3.80-5.20); White Blood Cell Count 9.14 K/mm3 (4.00-11.30)
[2023-09-17 19:42] LABS: Albumin, Blood 3.8 g/dL (3.4-5.0); Albumin/Globulin Ratio 0.9 (0.8-1.8); Bilirubin, Total 0.5 mg/dL (0.1-1.0); Bun/Creatinine Ratio 14.3 (12.0-20.0); Calcium, Blood 9.7 mg/dL (8.5-10.1); Creatinine, Blood 1.26 mg/dL (0.40-1.00); Globulin, Blood 4.2 g/dL (2.2-4.0); Potassium, Blood 4.1 mmol/L (3.5-5.5)
== END | disposition home or self-care (01) ==
LOC: LAB SHORT 15:01 → LAB 15:01 → LAB FUT 01-21 16:55
PROVIDERS: Family Medicine
DX: I50.9 Heart failure, unspecified (principal); R10.13 Epigastric pain
CPT/HCPCS: 36415; 80053; 83880; 85025

== ENCOUNTER 2024-01-25 22:30 | Inpatient (IN) | payer OTHER ==
[~2024-01-25] VITALS: Ht 152.4 cm; Wt 59.0 kg
[~2024-01-25 22:30] MED LIST changes: +IPRAT-ALBUT 0.5-3 ML INH; +SPIRIVA RESPIMAT4 G3 PO
[2024-01-25] MEDS ORDERED: Albuterol 2.5 MG/3 ML VIAL INH SCH (22:45)
[2024-01-25] MEDS ORDERED: MethylPREDNISolone Sod Succ 125 MG Vial IV ONE (22:45)
[2024-01-25] MEDS ORDERED: Pantoprazole Sodium 40 MG Injection IV ONE (22:50)
[2024-01-25] MEDS ORDERED: Sucralfate 1000MG / 10ML UD BTL PO ONE (23:10)
[2024-01-25 23:11] LABS: BASOPHILS PERCENT AUTO 1 % (0-2); EOSINOPHILS ABSOLUTE AUTO 0.45 K/mm3 (0.00-0.68); EOSINOPHILS PERCENT AUTO 4 % (0-6); Hematocrit 39.4 % (33.0-51.0); Hemoglobin 11.9 g/dL (11.5-16.0); IMMATURE GRAN ABSOLUTE AUTO 0.05 K/mm3 (0.00-0.10); IMMATURE GRAN PERCENT AUTO 0 % (0-1); LYMPHOCYTES ABSOLUTE AUTO 2.06 K/mm3 (0.84-5.20); LYMPHOCYTES PERCENT AUTO 18 % (21-46); MONOCYTES ABSOLUTE AUTO 0.85 K/mm3 (0.16-1.47); MONOCYTES PERCENT AUTO 7 % (4-13); Mean Corpuscular HGB 25.2 pg (26.0-34.0); Mean Corpuscular HGB Conc 30.2 g/dL (31.5-36.5); Mean Corpuscular Volume 83 fL (80-100); Mean Platelet Volume 10.6 fL (9.1-12.4); NEUTROPHILS ABSOLUTE AUTO 8.12 K/mm3 (1.96-9.15); NEUTROPHILS PERCENT AUTO 70 % (41-73); Platelet Count 333 K/mm3 (150-400); RDW Coefficient Variation 15.6 % (11.7-14.2); RDW Standard Deviation 46.9 fL (35.1-46.3); Red Blood Cell Count 4.73 M/mm3 (3.80-5.20); White Blood Cell Count 11.63 K/mm3 (4.00-11.30)
[2024-01-25] MEDS ORDERED: FentaNYL Citrate 50 MCG/ML 2 ML Injection IV ONE (23:20)
[2024-01-25 23:34] LABS: Albumin, Blood 3.6 g/dL (3.4-5.0); Bilirubin, Total 0.4 mg/dL (0.1-1.0); Bun/Creatinine Ratio 17.4 (12.0-20.0); Calcium, Blood 8.7 mg/dL (8.5-10.1); Creatinine, Blood 1.44 mg/dL (0.40-1.00); Globulin, Blood 3.6 g/dL (2.2-4.0); Potassium, Blood 4.1 mmol/L (3.5-5.5); Total Protein, Blood 7.2 g/dL (6.4-8.2)
[2024-01-25 23:46] LABS: Base Excess Venous 5.6 mmol/L; Bicarbonate Venous 27.7 mmol/L (24.0-30.0); PCO2 Venous 68.5 mmHg (38-42); pH Blood Venous 7.28 (7.34-7.37)
[2024-01-25 23:56] LABS: Influenza A, PCR NEGATIVE (NEGATIVE); Influenza B, PCR NEGATIVE (NEGATIVE); Resp Syncytial Virus, PCR NEGATIVE (NEGATIVE); SARS-Cov-2 (COVID-19) PCR, MMC NEGATIVE (NEGATIVE)
[2024-01-26] MEDS ORDERED: FLUTICASONE PRO16 GM (00:55)
[2024-01-26] MEDS ORDERED: ELIQUIS5 M3 PO (00:55)
[2024-01-26] MEDS ORDERED: HydrALAZINE HCl 20 MG / ML 1ML Vial IV PRN (00:55)
[2024-01-26] MEDS ORDERED: Ipratropium/Albuterol SulF 2.5-0.5MG/3 ML Amp INH PRN (00:55)
[2024-01-26] MEDS ORDERED: KLONOPIN0.5 M9 PO (00:57)
[2024-01-26] MEDS ORDERED: Ondansetron HCl 2 MG / ML 2ML Vial IV PRN (01:00)
[2024-01-26] MEDS ORDERED: ClonazePAM 0.5 MG Tab PO ONE (02:35)
[2024-01-26] MEDS ORDERED: Furosemide 10 MG/ML 4ML Vial IV SCH (04:00)
[2024-01-26 04:08] VITALS: BP 173/88
[2024-01-26 04:58] LABS: Base Excess Venous 5.3 mmol/L; Bicarbonate Venous 28.8 mmol/L (24.0-30.0); PCO2 Venous 41.6 mmHg (38-42); pH Blood Venous 7.46 (7.34-7.37)
[2024-01-26 05:01] LABS: BASOPHILS ABSOLUTE AUTO 0.03 K/mm3 (0.00-0.23); BASOPHILS PERCENT AUTO 0 % (0-2); EOSINOPHILS ABSOLUTE AUTO 0.01 K/mm3 (0.00-0.68); EOSINOPHILS PERCENT AUTO 0 % (0-6); Hematocrit 38.3 % (33.0-51.0); Hemoglobin 11.6 g/dL (11.5-16.0); IMMATURE GRAN ABSOLUTE AUTO 0.04 K/mm3 (0.00-0.10); IMMATURE GRAN PERCENT AUTO 1 % (0-1); LYMPHOCYTES ABSOLUTE AUTO 0.66 K/mm3 (0.84-5.20); LYMPHOCYTES PERCENT AUTO 8 % (21-46); MONOCYTES ABSOLUTE AUTO 0.05 K/mm3 (0.16-1.47); MONOCYTES PERCENT AUTO 1 % (4-13); Mean Corpuscular HGB Conc 30.3 g/dL (31.5-36.5); Mean Corpuscular Volume 83 fL (80-100); Mean Platelet Volume 9.8 fL (9.1-12.4); NEUTROPHILS ABSOLUTE AUTO 7.56 K/mm3 (1.96-9.15); NEUTROPHILS PERCENT AUTO 91 % (41-73); Platelet Count 288 K/mm3 (150-400); RDW Coefficient Variation 15.6 % (11.7-14.2); RDW Standard Deviation 46.8 fL (35.1-46.3); Red Blood Cell Count 4.64 M/mm3 (3.80-5.20); White Blood Cell Count 8.35 K/mm3 (4.00-11.30)
[2024-01-26 05:23] LABS: Albumin, Blood 3.4 g/dL (3.4-5.0); Albumin/Globulin Ratio 0.9 (0.8-1.8); Bilirubin, Total 0.4 mg/dL (0.1-1.0); Bun/Creatinine Ratio 18.5 (12.0-20.0); Creatinine, Blood 1.35 mg/dL (0.40-1.00); Globulin, Blood 3.7 g/dL (2.2-4.0); Potassium, Blood 4.4 mmol/L (3.5-5.5); Total Protein, Blood 7.1 g/dL (6.4-8.2)
[2024-01-26] MEDS ORDERED: Enoxaparin 40 MG/0.4 ML SYR SC SCH (06:00)
--- NOTE | 2024-01-26 06:13 | NUR ---
SHIFT SUMMARY PT ARRIVED ON THE UNIT AROUND 0215 AND WAS SLID FROM THE GURNEY ONTO THE BED. AFTER GETTING PT SETTLED IN SHE VOICED HAVING AN ANXIETY ATTACK AND REQUESTED PRIVACY. ASSESSMENT COMPLETED TO BEST OF ABILITY WITH PT HAVING AN ANXIETY ATTACK. CLONOPIN ORDERED BUT PT WAS ASLEEP PRIOR TO ADMINISTRATION. PT VSS, NO COMPLAINTS OF CP/PRESSURE. PT LUNG SOUNDS ARE COARSE AND WHEEZY. PT LEFT TO REST THROUGHOUT THE NIGHT PER PT REQUEST. PT RECEIVED 0600 MEDS AND A BREATHING TREATMENT. NO ACUTE EVENTS AT THIS TIME. PT SPENT MOST OF SHIFT WITH EYES CLOSED. PT LEFT IN A POSITION OF SAFETY WITH PROPER FALL PRECAUTIONS IN PLACE AND CALL LIGHT IN REACH.
[2024-01-26] MEDS ORDERED: Fluticasone 0.05% Nasal Spray SCH (06:45)
[2024-01-26] MEDS ORDERED: Tiotropium Bromide 2.5 MCG/ACT MIST INHAL (10 ACT/4 GM) INH SCH (06:45)
[2024-01-26] MEDS ORDERED: Albuterol HFA200 ACT/6.7 GM INH INH PRN (06:50)
[2024-01-26 07:53] VITALS: BP 144/76
[2024-01-26] MEDS ORDERED: MethylPREDNISolone Sod Succ 125 MG Vial IV SCH (08:00)
[2024-01-26] MEDS ORDERED: Metoprolol Succinate 50 MG TABCR PO SCH (09:00)
[2024-01-26] MEDS ORDERED: Gabapentin 300 MG Cap PO SCH (09:00)
[2024-01-26] MEDS ORDERED: Apixaban 5 MG Tab PO SCH (09:00)
[2024-01-26] MEDS ORDERED: Lisinopril 5 MG Tab PO SCH (09:00)
[2024-01-26] MEDS ORDERED: Famotidine 20 MG Tab PO SCH (09:00)
[2024-01-26] MEDS ORDERED: Pantoprazole Sodium 40 MG Tab PO SCH (09:00)
[2024-01-26] MEDS ORDERED: ClonazePAM 0.5 MG Tab PO SCH (09:00)
[2024-01-26 09:43] LABS: Source, Urine Clean Catch
[2024-01-26 09:47] LABS: Appearance, Urine Clear (Clear); Bilirubin, Urine Neg (Neg); Blood, Urine Neg (Neg); Glucose Qualitative, Urine Neg (Neg); Ketones, Urine Neg (Neg); Leukocyte Esterase, Urine Neg (Neg); Nitrite, Urine Neg (Neg); Protein, Urine 2+ (Neg); Specific Gravity, Urine 1.005 (1.003-1.022); Urobilinogen, Urine NORM (Normal)
[2024-01-26 09:54] LABS: Color, Urine Pale Yellow (P-Yellow)
[2024-01-26 09:56] LABS: Bacteria Not Seen /hpf; Red Blood Cells, Urine 0-2 /hpf (0-2); Squamous Epithelial Cells Rare /hpf (Few); White Blood Cells, Urine Not Seen /hpf (0-5)
[2024-01-26 10:02] LABS: U Amphetamine Screen Not Detected; U Barbituate Screen Not Detected; U Benzodiazapine Screen Not Detected; U Buprenorphine Screen Not Detected; U Cannabinoids Screen Not Detected; U Cocaine Screen Not Detected; U Methadone Screen Not Detected; U Methamphetamine Screen Not Detected; U Opiates Screen Not Detected; U Oxycodone Screen Not Detected; U Phencyclidine Screen Not Detected
[2024-01-26 15:09] VITALS: BP 123/78
[2024-01-26] MEDS ORDERED: Guaifenesin/Dextromethorphan Syrup 5 ML UDC PO PRN (18:15)
[2024-01-26] MEDS ORDERED: HYDROcodone 5-APAP 325 TAB PO PRN (18:15)
--- NOTE | 2024-01-26 18:15 | NUR ---
1809- VERBAL OVER THE PHONE FROM DR. POST TO ORDER NORCO 5-325 1 TAB Q 6 PRN FOR PAIN AND ROBITUSSIN DM 10 ML Q 4 PRN FOR COUGH.
--- NOTE | 2024-01-26 18:16 | NUR ---
SUMMARY- PT AAOX4. IND IN ROOM. SLEPT MOST OF THE SHIFT WITH NO COMPLAINTS. PT COMPLAINED OF PERSISTENT COUGH AND THROAT PAIN AT 1810 AT END OF SHIFT. MEDS ORDERED PER VERBAL. PT ON 2L WHILE SLEEPING TODAY.
[2024-01-26 19:40] VITALS: BP 116/75
--- NOTE | 2024-01-26 21:45 | NUR ---
ASSUMED CARE OF PT. PT IS CURRENTLY SLEEPING. RESPIRATION EVEN AND UNLABORED. CALL LIGHT WITHIN REACH. BED IN LOW POSITION.
[2024-01-27 02:30] VITALS: BP 159/88
--- NOTE | 2024-01-27 05:07 | NUR ---
SHIFT SUMMARY - NO ACUTE CHANGES THROUGHOUT THIS SHIFT. PT SLEPT FOR SEVERAL HOURS TONIGHT - PT REPORTS SHE DIDN'T SLEEP LAST NOC, PT IS APPRECIATIVE FOR SOME SLEEP. PT MEDICATED PER EMAR FOR PAIN X1. NO S/S OF RESPIRATORY DISTRESS. CALL LIGHT WITHIN REACH. BED IN LOW POSITION. WILL CONTINUE TO MONITOR UNTIL AM SHIFT CHANGE.
[2024-01-27 07:59] VITALS: BP 148/80
[2024-01-27] MEDS ORDERED: FURO20 PO (11:49)
[2024-01-27] MEDS ORDERED: PRED20 PO (11:50)
--- NOTE | 2024-01-27 14:05 | NUR ---
DISCHARGE Patient reports improved work of breathing, lungs clear t/o, ready for discharge. Transitioned from IV to PO steriods. Reviewed discharge teaching with patient, she verbalized understanding. Patient left med unit at 1340.
== END 2024-01-27 13:52 | disposition home or self-care (01) | DRG 189 ==
LOC: ER 22:30 → MEDS 22:31 → ENPENDDIS 01-27 11:01 → MEDS 01-27 12:16
PROVIDERS: Emergency Medicine; ADMIT Internal Medicine
DX: J96.21 Acute and chronic respiratory failure with hypoxia (principal); I13.0 Hypertensive heart and chronic kidney disease with heart failure and stage 1 through stage 4 chronic kidney disease, or unspecified chronic kidney disease; I50.42 Chronic combined systolic (congestive) and diastolic (congestive) heart failure; J44.1 Chronic obstructive pulmonary disease with (acute) exacerbation; I42.0 Dilated cardiomyopathy; E87.1 Hypo-osmolality and hyponatremia; N18.30 Chronic kidney disease, stage 3 unspecified; M79.7 Fibromyalgia; F41.9 Anxiety disorder, unspecified; I27.81 Cor pulmonale (chronic); K21.9 Gastro-esophageal reflux disease without esophagitis; F15.90 Other stimulant use, unspecified, uncomplicated; J96.22 Acute and chronic respiratory failure with hypercapnia; Z99.81 Dependence on supplemental oxygen; Z88.1 Allergy status to other antibiotic agents; Z88.8 Allergy status to other drugs, medicaments and biological substances; I25.2 Old myocardial infarction; Z79.899 Other long term (current) drug therapy; Z87.891 Personal history of nicotine dependence; Z90.49 Acquired absence of other specified parts of digestive tract; Z90.89 Acquired absence of other organs; Z98.890 Other specified postprocedural states; E87.5 Hyperkalemia
CPT/HCPCS: 0241U; 36415; 71045; 80053; 81001; 82803; 83880; 84484; 85025; 87070; 87077; 87186; 87205; 93005; 93010; 94640; 94644; 94664; 94760; 96374; 96375; 99285-25; A9270; C9113; G0378; J0360; J1940; J2919; J3010

== ENCOUNTER 2024-02-17 21:21 | Inpatient (IN) | payer OTHER ==
[~2024-02-17] VITALS: Ht 152.4 cm; Wt 61.2 kg
[~2024-02-17 21:21] MED LIST changes: +CIME400 PO; +ELIQUIS5 M3 PO; +FLUTICASONE PRO16 GM; +KLONOPIN0.5 M9 PO
[2024-02-17 21:36] LABS: BASOPHILS ABSOLUTE AUTO 0.05 K/mm3 (0.00-0.23); BASOPHILS PERCENT AUTO 0 % (0-2); EOSINOPHILS ABSOLUTE AUTO 0.22 K/mm3 (0.00-0.68); EOSINOPHILS PERCENT AUTO 1 % (0-6); Hematocrit 41.5 % (33.0-51.0); Hemoglobin 11.8 g/dL (11.5-16.0); IMMATURE GRAN ABSOLUTE AUTO 0.11 K/mm3 (0.00-0.10); IMMATURE GRAN PERCENT AUTO 1 % (0-1); LYMPHOCYTES ABSOLUTE AUTO 1.18 K/mm3 (0.84-5.20); LYMPHOCYTES PERCENT AUTO 8 % (21-46); MONOCYTES PERCENT AUTO 7 % (4-13); Mean Corpuscular HGB 24.4 pg (26.0-34.0); Mean Corpuscular HGB Conc 28.4 g/dL (31.5-36.5); Mean Corpuscular Volume 86 fL (80-100); Mean Platelet Volume 10.6 fL (9.1-12.4); NEUTROPHILS ABSOLUTE AUTO 12.85 K/mm3 (1.96-9.15); NEUTROPHILS PERCENT AUTO 83 % (41-73); Platelet Count 380 K/mm3 (150-400); RDW Coefficient Variation 16.8 % (11.7-14.2); RDW Standard Deviation 53.1 fL (35.1-46.3); Red Blood Cell Count 4.83 M/mm3 (3.80-5.20); White Blood Cell Count 15.41 K/mm3 (4.00-11.30)
[2024-02-17 21:56] LABS: Albumin, Blood 3.2 g/dL (3.4-5.0); Albumin/Globulin Ratio 0.9 (0.8-1.8); Bilirubin, Total 0.6 mg/dL (0.1-1.0); Bun/Creatinine Ratio 15.6 (12.0-20.0); Calcium, Blood 8.6 mg/dL (8.5-10.1); Creatinine, Blood 1.54 mg/dL (0.40-1.00); Globulin, Blood 3.5 g/dL (2.2-4.0); Total Protein, Blood 6.7 g/dL (6.4-8.2)
[2024-02-17] MEDS ORDERED: FentaNYL Citrate 50 MCG/ML 2 ML Injection IV ONE (22:30)
[2024-02-18] MEDS ORDERED: Ondansetron 4 MG TAB PO PRN (00:10)
[2024-02-18] MEDS ORDERED: Docusate Sodium 100 MG Cap PO PRN (00:15)
[2024-02-18] MEDS ORDERED: Acetaminophen 325 MG TABLET PO PRN (00:30)
[2024-02-18] MEDS ORDERED: Morphine Sulfate 4 MG/1 ML Injection IV PRN (00:30)
[2024-02-18] MEDS ORDERED: Tiotropium Bromide 2.5 MCG/ACT MIST INHAL (10 ACT/4 GM) INH SCH (00:40)
[2024-02-18] MEDS ORDERED: HydrALAZINE HCl 20 MG / ML 1ML Vial IV PRN (00:40)
[2024-02-18] MEDS ORDERED: ClonazePAM 0.5 MG Tab PO PRN (00:55)
[2024-02-18] MEDS ORDERED: Naproxen 500 MG Tab PO PRN (01:00)
[2024-02-18] MEDS ORDERED: NS 1,000 ML IV SCH (01:00)
[2024-02-18] MEDS ORDERED: Albuterol HFA200 ACT/6.7 GM INH INH PRN (01:00)
[2024-02-18 01:18] VITALS: BP 201/123
[2024-02-18] MEDS ORDERED: Albuterol 2.5 MG/3 ML VIAL INH PRN (01:50)
[2024-02-18 03:54] VITALS: BP 151/90
[2024-02-18] MEDS ORDERED: Ipratropium/Albuterol SulF 2.5-0.5MG/3 ML Amp INH PRN (04:40)
[2024-02-18] MEDS ORDERED: Pantoprazole Sodium 40 MG Injection IV SCH (06:00)
[2024-02-18 08:53] VITALS: BP 152/99
[2024-02-18] MEDS ORDERED: Lisinopril 10 MG Tab PO SCH (09:00)
[2024-02-18] MEDS ORDERED: Gabapentin 300 MG Cap PO SCH (09:00)
[2024-02-18] MEDS ORDERED: Furosemide 10 MG / ML 2ML Vial IV SCH (09:00)
[2024-02-18] MEDS ORDERED: Metoprolol Succinate 50 MG TABCR PO SCH (09:00)
[2024-02-18] MEDS ORDERED: Enoxaparin 40 MG/0.4 ML SYR SC SCH (09:00)
[2024-02-18] MEDS ORDERED: ClonazePAM 0.5 MG Tab PO SCH (09:00)
[2024-02-18 11:37] LABS: Albumin, Blood 2.9 g/dL (3.4-5.0); Albumin/Globulin Ratio 0.9 (0.8-1.8); Bilirubin, Total 0.4 mg/dL (0.1-1.0); Bun/Creatinine Ratio 14.2 (12.0-20.0); Calcium, Blood 8.6 mg/dL (8.5-10.1); Creatinine, Blood 1.41 mg/dL (0.40-1.00); Globulin, Blood 3.3 g/dL (2.2-4.0); Potassium, Blood 4.4 mmol/L (3.5-5.5); Total Protein, Blood 6.2 g/dL (6.4-8.2)
[2024-02-18] MEDS ORDERED: SINCALIDE IV ONE (12:35)
[2024-02-18] MEDS ORDERED: NS IV ONE (12:35)
[2024-02-18 15:04] VITALS: BP 178/87
--- NOTE | 2024-02-18 18:29 | NUR ---
SHIFT SUMMARY: PATIENT COMPLETED HIDA SCAN; RESULTS NEGATIVE. PATIENT NOW EATING AND DRINKING. PRNS FOR PAIN AND HTN; PATIENT C/O POUNDING HTN HEADACHES. IMPROVEMENT AFTER PAIN MEDICATIONS AND IV HYDRALAZINE. PATIENT IS IN BED, CALL LIGHT WITHIN REACH, NO SIGNS OR SYMPTOMS OF DISTRESS, PLAN OF CARE ONGOING.
[2024-02-18 19:50] VITALS: BP 111/80
[2024-02-19 03:33] VITALS: BP 126/78
--- NOTE | 2024-02-19 06:22 | NUR ---
END OF SHIFT SUMMARY PT A&OX4, ANXIOUS. PT C/O ONGOING EPIGASTRIC PAIN AND HEADACHE, MEDICATED WITH MORPHINE AND TYLENOL WITH GOOD EFFECT. PT REQUESTING LARGE QUANTITIES OF SODA AND SNACKS. CAUTIONED PT AGAINST LARGE INTAKE DUE TO HX OF INCREASED PAIN AFTER EATING. PT DENIED THIS STATING IT WOULD NOT MAKE HER PAIN WORSE AND "I ALWAYS EAT THIS MUCH". PT LATER BEGAN HAVING INCREASED PAIN. AGAIN ADVISED PT TO AVOID INCREASED PO INTAKE BUT PT REFUSED, REQUESTING MORE SODA AND SNACKS DESPITE EDUCATION. NO OTHER EVENTS OVERNIGHT.
[2024-02-19 07:21] VITALS: BP 114/69
--- NOTE | 2024-02-19 15:10 | NUR ---
CALLED DR. VEE HE STATES THAT THE PLAN IS TO D/C PATIENT TOMORROW 02/20/24. LET HIM KNOW THAT PATIENT HAS YET TO HAVE A BM; DRANK A "BROWN COW" ENCOURAGED TO GET UP AND WALK AROUND AND TRY TO HAVE A BM. PATIENT EXPRESSES ABD CRAMPING IF SHE NEEDS TO HAVE A BM; CONTINUES TO LAY IN BED AND SLEEP.
[2024-02-19 16:30] VITALS: BP 98/56
--- NOTE | 2024-02-19 17:37 | NUR ---
SHIFT SUMMARY: PT IS A&OX4/INDEPENDENT; MAKES NEEDS KNOWN. SHE DID NOT COMPLAIN OF HEADACHES TODAY, BUT WAS COMPLAINING OF EPIGASTRIC PAIN; STATING THAT IT FEELS LIKE CRAMPS; IF SHE NEEDS TO HAVE A BOWEL MOVEMENT. SHE DID HAVE A SMALL HARD BM THIS AFTERNOON. HER BLOOD PRESSURE IF BETTER TODAY WELL; EXPLAINING THE ABSENCE OF HEADACHES. SHE CONTINUES TO AMBULATE TO THE BATHROOM; UNFORTUNATELY SHE TAKES HER OXYGEN OFF WHEN SHE GETS UP; SHE DOES BECOME HYPOXIC O2 SATS IN THE HIGH 70'S LOW 80'S. ADVISED PATIENT TO WEAR OXYGEN WHEN AMBULATING. SHE STATES "SHE DOES NOT NEED TO WEAR IT TO GO THE BATHROOM" O2 LEVELS SHOW OTHERWISE. O2 IMPROVES ONCE OXYGEN IS BACK ON. SHE SPENDS MOST OF HER DAY IN BED RESTING, CALL LIGHT WITHIN REACH, NO SIGNS OR SYMPTOMS OF DISTRESS, PLAN OF CARE ONGOING; PLAN IS TO D/C TOMORROW 02/20/24.
[2024-02-19 19:51] VITALS: BP 99/58
[2024-02-20 03:16] VITALS: BP 80/49
[2024-02-20 04:32] VITALS: BP 88/65
--- NOTE | 2024-02-20 04:39 | NUR ---
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 PATIENT IS EDUCATED ON IMPORTANCE OF LEAVING OXYGEN ON ESPECIALLY WHEN TAKING NARCOTICS. PATIENT BP HAS BEEN TRENDING DOEN, LAST BP TAKEN WAS 88/65, AND PULSE IS 71, 02 96. MD WAS NOTIFIED AND NS 250 BOLUS WAS ORDERD TO BE GIVEN ONE TIME. WILL CONTINUE TO MONITOR PATIENT BP. PATIENT COMPLAINED OF EPIGASTRIC PAIN THROUGHTOUT THE NIGHT, PRN MORPHINE GIVEN. .
[2024-02-20] MEDS ORDERED: NS 250 ML IV PRN (05:05)
[2024-02-20 07:10] VITALS: BP 111/47
--- NOTE | 2024-02-20 08:26 | NUR ---
Pt sitting up in bed crying with pain to her abd, she states she thinks it's her gallbladder, vs are >100 this am, but has been in the 80's and 90s through the night, a/ox4, cooperative with care, follows commands well, lungs have faint exp wheezing t/o, resp even and unlored, on 2liters currently, no cough noted or reported, no edema noted, piv to lac site is clear and patent, infusing a gentle bolus of ns at this time, btx4, abd soft tender in epigastric area, skin c/w/d, sesar, kaitlyn, call light in reach.
[2024-02-20 08:49] LABS: BASOPHILS ABSOLUTE AUTO 0.05 K/mm3 (0.00-0.23); BASOPHILS PERCENT AUTO 0 % (0-2); EOSINOPHILS ABSOLUTE AUTO 0.04 K/mm3 (0.00-0.68); EOSINOPHILS PERCENT AUTO 0 % (0-6); Hematocrit 39.7 % (33.0-51.0); Hemoglobin 11.1 g/dL (11.5-16.0); IMMATURE GRAN ABSOLUTE AUTO 0.16 K/mm3 (0.00-0.10); IMMATURE GRAN PERCENT AUTO 1 % (0-1); LYMPHOCYTES ABSOLUTE AUTO 1.71 K/mm3 (0.84-5.20); LYMPHOCYTES PERCENT AUTO 7 % (21-46); MONOCYTES ABSOLUTE AUTO 2.37 K/mm3 (0.16-1.47); MONOCYTES PERCENT AUTO 10 % (4-13); Mean Corpuscular HGB 24.4 pg (26.0-34.0); Mean Corpuscular Volume 87 fL (80-100); Mean Platelet Volume 10.3 fL (9.1-12.4); NEUTROPHILS ABSOLUTE AUTO 19.12 K/mm3 (1.96-9.15); NEUTROPHILS PERCENT AUTO 82 % (41-73); NRBC ABSOLUTE 0.03 K/mm3 (0.00-0.02); NRBC Auto 0.1 /100 WBC (0.0-0.2); Platelet Count 365 K/mm3 (150-400); RDW Coefficient Variation 16.3 % (11.7-14.2); RDW Standard Deviation 52.5 fL (35.1-46.3); Red Blood Cell Count 4.54 M/mm3 (3.80-5.20); White Blood Cell Count 23.45 K/mm3 (4.00-11.30)
[2024-02-20] MEDS ORDERED: TraMADol HCl 50 MG Tab PO PRN (09:00)
[2024-02-20 09:09] LABS: Albumin/Globulin Ratio 0.9 (0.8-1.8); Bilirubin, Total 0.4 mg/dL (0.1-1.0); Bun/Creatinine Ratio 13.7 (12.0-20.0); Calcium, Blood 8.5 mg/dL (8.5-10.1); Creatinine, Blood 2.63 mg/dL (0.40-1.00); Globulin, Blood 3.4 g/dL (2.2-4.0); Potassium, Blood 4.9 mmol/L (3.5-5.5); Total Protein, Blood 6.4 g/dL (6.4-8.2)
[2024-02-20 09:10] VITALS: BP 91/46
[2024-02-20] MEDS ORDERED: Polyethylene Glycol 3350 17 gm PO ONE ×2 (11:00→12:00)
[2024-02-20] MEDS ORDERED: CefTRIAXone Sodium 1,000 MG in NS 100 ML IV SCH (11:10)
[2024-02-20 15:15] VITALS: BP 80/42
--- NOTE | 2024-02-20 18:09 | NUR ---
pt yells out with pain when not sleeping, a/ox3, complains of severe abd pain, after medications will sleep for hrs, had a ct of abd today, started her on rocephin, no further changes this shift, call light in reach.
[2024-02-20 19:57] VITALS: BP 98/61
[2024-02-20] MEDS ORDERED: Gabapentin 300 MG Cap PO SCH (21:00)
[2024-02-20 23:43] LABS: Source, Urine Clean Catch
[2024-02-21 00:04] LABS: Blood, Urine 1+ (Neg); Glucose Qualitative, Urine Neg (Neg); Ketones, Urine Neg (Neg); Leukocyte Esterase, Urine Neg (Neg); Nitrite, Urine Neg (Neg); Protein, Urine 2+ (Neg); Specific Gravity, Urine 1.015 (1.003-1.022); Urobilinogen, Urine NORM (Normal)
[2024-02-21 00:05] LABS: Appearance, Urine Hazy (Clear); Bilirubin, Urine 1+ (Neg); Color, Urine Yellow (P-Yellow)
[2024-02-21 00:12] LABS: Amorphous Light (0-Heavy); Bacteria Few /hpf; Red Blood Cells, Urine 0-2 /hpf (0-2); Squamous Epithelial Cells Mod /hpf (Few); White Blood Cells, Urine 0-2 /hpf (0-5)
[2024-02-21 04:23] VITALS: BP 120/69
[2024-02-21 06:08] LABS: BASOPHILS ABSOLUTE AUTO 0.09 K/mm3 (0.00-0.23); BASOPHILS PERCENT AUTO 1 % (0-2); EOSINOPHILS PERCENT AUTO 1 % (0-6); Hematocrit 37.1 % (33.0-51.0); Hemoglobin 10.3 g/dL (11.5-16.0); IMMATURE GRAN ABSOLUTE AUTO 0.14 K/mm3 (0.00-0.10); IMMATURE GRAN PERCENT AUTO 1 % (0-1); LYMPHOCYTES ABSOLUTE AUTO 2.63 K/mm3 (0.84-5.20); LYMPHOCYTES PERCENT AUTO 14 % (21-46); MONOCYTES ABSOLUTE AUTO 1.89 K/mm3 (0.16-1.47); MONOCYTES PERCENT AUTO 10 % (4-13); Mean Corpuscular HGB Conc 27.8 g/dL (31.5-36.5); Mean Corpuscular Volume 86 fL (80-100); Mean Platelet Volume 10.4 fL (9.1-12.4); NEUTROPHILS ABSOLUTE AUTO 13.76 K/mm3 (1.96-9.15); NEUTROPHILS PERCENT AUTO 74 % (41-73); Platelet Count 379 K/mm3 (150-400); RDW Coefficient Variation 16.5 % (11.7-14.2); RDW Standard Deviation 51.3 fL (35.1-46.3); White Blood Cell Count 18.71 K/mm3 (4.00-11.30)
[2024-02-21 06:38] LABS: Albumin, Blood 2.8 g/dL (3.4-5.0); Albumin/Globulin Ratio 0.8 (0.8-1.8); Bilirubin, Total 0.4 mg/dL (0.1-1.0); Bun/Creatinine Ratio 13.2 (12.0-20.0); Calcium, Blood 8.2 mg/dL (8.5-10.1); Creatinine, Blood 3.4 mg/dL (0.40-1.00); Globulin, Blood 3.4 g/dL (2.2-4.0); Potassium, Blood 4.7 mmol/L (3.5-5.5); Total Protein, Blood 6.2 g/dL (6.4-8.2)
--- NOTE | 2024-02-21 07:14 | NUR ---
END OF SHIFT SUMMARY PT A&OX4, ANXIOUS AT TIMES. RESTLESS/SPASTIC MOVEMENT OCCASIONALLY, ESPECIALLY WHEN HOLDING CUP/OBJECTS CAUSING PT TO SPILL DRINKS, ETC. PT INITIALLY STATED THIS WAS BASELINE HOWEVER THIS WAS NOT THIS MUSIC ASSISTANT'S PREVIOUS ASSESSMENT ON 02/17. PT HAS HX OF METH USE AND ADMITTED SHE LAST USED ON DAY OF ADMISSION 02/16 AND SYMPTOMS SIMILAR TO PREVIOUS WITHDRAWALS. PT GIVEN KLONOPIN WITH GOOD RELIEF. PT HAD LOOSE BM WITH SMALL ACCIDENTS. REPORTS ABD PAIN IMPROVED OVERALL, COMPLIANT WITH EDUCATION TO HAVE SMALL MEALS/SNACKS AND DRINKS. ENCOURAGED PT TO AMBULATE. NO FURTHER EVENTS OVERNIGHT.
[2024-02-21 07:34] VITALS: BP 91/64
[2024-02-21] MEDS ORDERED: NS 1,000 ML IV SCH ×2 (08:10→15:50)
[2024-02-21] MEDS ORDERED: NS 500 ML IV ONE (08:10)
--- NOTE | 2024-02-21 09:00 | NUR ---
pt laying in bed, wakes easily, a/ox4, uses frequent foul language, cooperative with care, follows commands well, did not complain of pain, lungs are clear in upper tuttle, wheezing in bases, desats with activity, currently on 2 liters o2, she reports she is feeling better today, not so much pain, had two loose stools last night, is tolerating food better than yesterday, hrr, no edema noted, ppp+1 cap refill <3 sec, vs stable, afebrile, piv to lac site is clear and patent, btx4, abd flat soft nontender, voids without diff, skin c/w/d, maew, kaitlyn, call light in reach.
[2024-02-21 11:09] VITALS: BP 90/57
[2024-02-21 14:42] LABS: Bun/Creatinine Ratio 13.2 (12.0-20.0); Calcium, Blood 7.7 mg/dL (8.5-10.1); Creatinine, Blood 3.48 mg/dL (0.40-1.00); Potassium, Blood 4.7 mmol/L (3.5-5.5)
[2024-02-21 15:59] VITALS: BP 93/59
--- NOTE | 2024-02-21 18:08 | NUR ---
pt has had a better day today, still yells when pain is up. b/p continues to be soft, no further acute changes. call light in reach.
[2024-02-21 19:17] VITALS: BP 93/56
--- NOTE | 2024-02-21 20:35 | NUR ---
TALKED WITH PATIENT AND DISCUSSED CODE STATUS PATIENT DOES NOT HAVE A CODE STATUS LISTED. EDUCATED PATIENT ON THE DIFFERENT CODE STATUS-PATIENT OPTED TO BE DNR. HOSPITALIST SEBASTIÁN [facility] SEBASTIÁN ORDERED FOR PATIENT TO BE DNR SHE HAS ASKED FOR. PATIENT IS ALERT AND ORIENTED.
--- NOTE | 2024-02-21 22:58 | NUR ---
PATIENT REPORTS PAIN TO RIGHT SHOULDER THAT IS CHRONIC FOLLOWING A FALL AT [facility], PATIENT REPORTS TYLENOL UPSETS HER STOMACH.
--- NOTE | 2024-02-21 23:03 | NUR ---
HOSPITALIST CONTACTED. HOSPITALIST NOTIFIED OF PATIENTS PAIN. PATIENT HAS TYLENOL AVALIABLE AT THIS TIME-PATIENT REPORTS TYLENOL UPSETS HER STOMACH, PATIENT HAS MORPHINE THAT IS NOT DUE FOR AN HOUR AND A HALF. SEBASTIÁN ORDERED FOR A ONE TIME DOSE OF OXYCODONE 5MG PO.
[2024-02-21] MEDS ORDERED: OxyCODONE HCL 5 MG TAB PO ONE (23:05)
[2024-02-22 03:17] VITALS: BP 110/88
--- NOTE | 2024-02-22 04:13 | NUR ---
SHIFT SUMMARY. PATIENT A&OX4. PATIENT STRUGGLED WITH PAIN MANAGEMENT TONIGHT. PATIENT REPORTS SEVERE PAIN TO RIGHT SHOULDER THAT HAS BECOME CHRONIC SINCE A FALL AT [facility] PER PATIENT. PATIENT IS ABLE TO MAKE HER NEEDS KNOWN. PATIENT IS PLEASANT. BED IS LOCKED IN THE LOWEST POSITION WITH CALL LIGHT IN REACH.CARE IS ONGOING.
--- NOTE | 2024-02-22 05:08 | NUR ---
SHIFT SUMMARY. PATIENT IS A&OX4. PATIENT PLEASANT AND COOPERATIVE WITH CARE. PATIENT REQUESTING PAIN MEDS Q2-3 HOURS. PATIENT RECEIVED A ONE TIME DOSE OF OXYCODONE PER HOSPITALIST SEBASTIÁN JACOBO. PATIENT REPORTS SOME RELIEF. PATIENT UP MOST OF NIGHT OFF AND ON. PATIENT YELLING OUT IN PAIN AT TIMES. PATIENT REPORTS THAT HER SHOULDER HURTS FROM A PREVIOUS FALL AT [facility] IN OCTOBER AND THE PAIN HAS BEEN CHRONIC EVER SINCE. PAITNET USES LIGHT TO CALL. PATIENT FORGETFUL OF WHEN SHE RECEIVED HER PAIN MEDICATIONS A COUPLE TIMES IN THE NIGHT-PATIENT REORIENTED AND PATIENT STATES "I DONT THINK I AM ALL THE WAY AWAKE". PATIENT GETTING UP INDEPENDENTLY TO THE BATHROOM, TAKING IV POLE WITH HER. BED IS LOCKED IN THE LOWEST POSITION WITH CALL LIGHT IN REACH. CARE IS ONGOING.
[2024-02-22 06:19] LABS: Albumin, Blood 2.7 g/dL (3.4-5.0); Albumin/Globulin Ratio 0.8 (0.8-1.8); Bilirubin, Total 0.3 mg/dL (0.1-1.0); Bun/Creatinine Ratio 14.1 (12.0-20.0); Calcium, Blood 7.8 mg/dL (8.5-10.1); Creatinine, Blood 3.06 mg/dL (0.40-1.00); Globulin, Blood 3.4 g/dL (2.2-4.0); Potassium, Blood 5.4 mmol/L (3.5-5.5); Total Protein, Blood 6.1 g/dL (6.4-8.2)
[2024-02-22 06:56] LABS: BASOPHILS ABSOLUTE AUTO 0.05 K/mm3 (0.00-0.23); BASOPHILS PERCENT AUTO 1 % (0-2); EOSINOPHILS ABSOLUTE AUTO 0.23 K/mm3 (0.00-0.68); EOSINOPHILS PERCENT AUTO 2 % (0-6); Hematocrit 32.9 % (33.0-51.0); Hemoglobin 9.4 g/dL (11.5-16.0); IMMATURE GRAN ABSOLUTE AUTO 0.15 K/mm3 (0.00-0.10); IMMATURE GRAN PERCENT AUTO 1 % (0-1); LYMPHOCYTES ABSOLUTE AUTO 2.18 K/mm3 (0.84-5.20); LYMPHOCYTES PERCENT AUTO 20 % (21-46); MONOCYTES ABSOLUTE AUTO 1.14 K/mm3 (0.16-1.47); MONOCYTES PERCENT AUTO 11 % (4-13); Mean Corpuscular HGB 24.4 pg (26.0-34.0); Mean Corpuscular HGB Conc 28.6 g/dL (31.5-36.5); Mean Corpuscular Volume 85 fL (80-100); Mean Platelet Volume 9.6 fL (9.1-12.4); NEUTROPHILS ABSOLUTE AUTO 6.93 K/mm3 (1.96-9.15); NEUTROPHILS PERCENT AUTO 65 % (41-73); Platelet Count 330 K/mm3 (150-400); RDW Coefficient Variation 16.3 % (11.7-14.2); RDW Standard Deviation 50.4 fL (35.1-46.3); Red Blood Cell Count 3.86 M/mm3 (3.80-5.20); White Blood Cell Count 10.68 K/mm3 (4.00-11.30)
[2024-02-22 07:26] VITALS: BP 98/60
[2024-02-22] MEDS ORDERED: NS 1,000 ML IV ONE (10:35)
[2024-02-22 14:27] LABS: Bun/Creatinine Ratio 16.7 (12.0-20.0); Calcium, Blood 7.9 mg/dL (8.5-10.1); Creatinine, Blood 2.57 mg/dL (0.40-1.00); Potassium, Blood 5.3 mmol/L (3.5-5.5)
[2024-02-22 15:46] VITALS: BP 124/69
[2024-02-22 16:10] LABS: Uric Acid, Blood 6.9 mg/dL (2.6-6.0)
--- NOTE | 2024-02-22 16:22 | NUR ---
PT NAUSEATED & CRYING IN ROOM. PT CRYING IN ROOM STATING SHE CANT TAKE BEING NAUSEATED ANY LONGER. DR. BOLES NOTIFIED OF THIS. STATES HE WILL COME SPEAK WITH THE PATIENT.
[2024-02-22] MEDS ORDERED: Ondansetron 4 MG TAB PO ONE (16:45)
--- NOTE | 2024-02-22 17:10 | NUR ---
SHIFT SUMMARY PT NAUSEATED MOST THE DAY. ONLY VOMITED THIS AM. TREATED WITH ZOFRAN TWICE TODAY AND THEN AN EXTRA ONE TIME DOSE PER DR. PARIS. PT MEDICATED FOR ANXIETY TWICE TODAY. ONCE THIS AM AND ONCE THIS AFTERNOON. PT WAS TRYING TO SAFE THE SECOND DOSE FOR BEDTIME, BUT STARTED CRYING AND WAS UNABLE TO CALM DOWN WITHOUT SOMETHING TO HELP. MEDICATED FOR PAIN 3 TIMES TODAY. TRIALED 1MG OF MORPHINE RATHER THAN 2MG AND PT HAD TO BE MEDICATED AGAIN WITH 1 MG LATER. PT DESAT TO THE 70S WITHOUT HER O2. QUICKLY RECOVERED AND IS NOW ON 2L O2 VIA NC. NO OTHER ACUTE CHANGES IN ASSESSMENT AT THIS TIME. VS REVIEWED. CALL LIGHT IN REACH. DENIES OTHER NEEDS AT THIS TIME.
[2024-02-22 19:44] VITALS: BP 134/72
[2024-02-22] MEDS ORDERED: Heparin Sodium,Porcine 5,000 UNIT/0.5 ML SDV SC SCH (21:00)
[2024-02-23 02:27] VITALS: BP 136/78
--- NOTE | 2024-02-23 04:20 | NUR ---
SHIFT SUMMARY ADMITTED FOR TRANSAMINITIS. DNR CODE. PLAN IS FOR DC HOME. HOWEVER THE PATIENT INFORMS ME THAT SHE DOES NOT REALLY WANT TO GO HOME. THIS SHIFT SHE HAS HAD A TERRIBLE NIGHT, WITH CONTINUOUS EMOTIONAL OUTBURSTS. SHE FREQUENTLY USES HER CALL BUTTON FOR NONESSENTIAL WANTS AND CONTINUOUS REQUESTS FOR SNACKS. SHE DISCONNECTED HER IV, AND I RECONNECTED IT. THEN ULTIMATELY SHE PULLED OUT HER IV. I DID INFORM THE HOSPITALIST.
[2024-02-23 07:42] VITALS: BP 153/91
[2024-02-23 07:55] LABS: BASOPHILS ABSOLUTE AUTO 0.05 K/mm3 (0.00-0.23); BASOPHILS PERCENT AUTO 1 % (0-2); EOSINOPHILS ABSOLUTE AUTO 0.28 K/mm3 (0.00-0.68); EOSINOPHILS PERCENT AUTO 3 % (0-6); Hematocrit 34.1 % (33.0-51.0); Hemoglobin 9.8 g/dL (11.5-16.0); IMMATURE GRAN ABSOLUTE AUTO 0.17 K/mm3 (0.00-0.10); IMMATURE GRAN PERCENT AUTO 2 % (0-1); LYMPHOCYTES ABSOLUTE AUTO 2.21 K/mm3 (0.84-5.20); LYMPHOCYTES PERCENT AUTO 22 % (21-46); MONOCYTES ABSOLUTE AUTO 1.29 K/mm3 (0.16-1.47); MONOCYTES PERCENT AUTO 13 % (4-13); Mean Corpuscular HGB 24.1 pg (26.0-34.0); Mean Corpuscular HGB Conc 28.7 g/dL (31.5-36.5); Mean Corpuscular Volume 84 fL (80-100); NEUTROPHILS ABSOLUTE AUTO 6.23 K/mm3 (1.96-9.15); NEUTROPHILS PERCENT AUTO 61 % (41-73); Platelet Count 334 K/mm3 (150-400); RDW Coefficient Variation 16.1 % (11.7-14.2); RDW Standard Deviation 49.4 fL (35.1-46.3); Red Blood Cell Count 4.06 M/mm3 (3.80-5.20); White Blood Cell Count 10.23 K/mm3 (4.00-11.30)
[2024-02-23 08:13] LABS: Albumin, Blood 2.9 g/dL (3.4-5.0); Albumin/Globulin Ratio 0.8 (0.8-1.8); Bilirubin, Total 0.2 mg/dL (0.1-1.0); Bun/Creatinine Ratio 18.5 (12.0-20.0); Calcium, Blood 8.4 mg/dL (8.5-10.1); Creatinine, Blood 2.11 mg/dL (0.40-1.00); Globulin, Blood 3.5 g/dL (2.2-4.0); Potassium, Blood 5.6 mmol/L (3.5-5.5); Total Protein, Blood 6.4 g/dL (6.4-8.2)
[2024-02-23] MEDS ORDERED: Gabapentin 300 MG Cap PO SCH ×3 (09:16→21:00)
[2024-02-23] MEDS ORDERED: Metoprolol Succinate 50 MG TABCR PO SCH (09:20)
--- NOTE | 2024-02-23 10:26 | NUR ---
DESATURATION PT FOUND AT 0745 WITHOUT HER O2 ON AND SATING AT 69%. O2 PLACED BACK ON THE PATIENT AND O2 TURNED UP TO 5L VIA NC. RT NOTIFIED THAT PT IS NOT RECOVERING VERY QUICKLY. HUMIDIFIER WAS CLOGGED AND CHANGED. PT THEN WAS ABLE TO RECOVER TO THE HIGH 80S-LOW 90S. DR. HARRINGTON AWARE OF THIS. AT 0936 PT WAS SPOT CHECKED AND STILL ONLY SATING 87% ON 5L O2. PT ENCOURAGED TO GET UP OOB AND TAKE SOME DEEP BREATHINGS. PT WENT FOR XRAY AND CAME BACK SATING IN THE 90S ON 5L O2 VIA NC. IS GIVEN TO PT AND EDUCATED ON ITS USE. PT ENCOURAGED TO GET UP OOB AND SIT IN CHAIR. PT REFUSED AT THIS TIME BUT WILL ALLOW FOR HER HOB TO BE ELEVATED WHILE SHE RESTS. HUMIDIFICATION ADDED BACK TO O2 TUBING FOR COMFORT. PT CURRENTLY SATING ON 4-5L O2 VIA NC AND SATING IN THE LOW 90S.
[2024-02-23] MEDS ORDERED: Sodium Polystyrene Sulfonate 15GM / 60ML BTL PO ONE (12:20)
[2024-02-23 15:15] VITALS: BP 148/90
[2024-02-23] MEDS ORDERED: Pantoprazole Sodium 20 MG Tab PO SCH (16:30)
--- NOTE | 2024-02-23 18:23 | NUR ---
SHIFT SUMMARY PT IV REPLACED TODAY SO THAT SHE CAN GET IV ABX. IV MORPHINE DCED. MEDICATED WITH TYLENOL TWICE TODAY. PT SEEMS TO REST WELL AFTER HER DOSES. MEDICATED FOR ANXIETY ONCE THIS SHIFT. FAMILY IN TO VISIT TODAY. IV FLUIDS DCED. K-EXCELATE GIVEN PT POTASSIUM WAS ELEVATED. O2 HAD TO BE INCREASED TO 5L TODAY VIA HIGH FLOW NC IN ORDER TO HAVE HER SATS STAY ABOUT 90%. NO OTHER ACUTE CHANGES IN ASSESSMENT AT THIS TIME. VS REVIEWED. CALL LIGHT IN REACH. DENIES OTHER NEEDS AT THIS TIME.
[2024-02-23 19:06] VITALS: BP 148/98
[2024-02-23] MEDS ORDERED: ClonazePAM 0.5 MG Tab PO ONE (19:25)
[2024-02-24 02:17] VITALS: BP 126/76
--- NOTE | 2024-02-24 04:15 | NUR ---
SHIFT SUMMARY. PATIENT IS A&OX4. PATIENT CALLS AND IS ABLE TO MAKE HER NEEDS KNOWN. PATIENT ANXIOUS BEGINNING OF SHIFT REQUESTING HER ANTIANXIETY MEDICATION-PATIENT HAD TAKEN ALL THAT WAS ORDERED FOR PATIENT TO HAVE, THIS RN CALLED SEBASTIÁN WHO ORDERED A ONE TIME DOSE-SEE ORDER HISTORY. PATIENT REMAINED AXIOUS T/O THE NIGHT. PATIENT UP MOST OF NIGHT. PATIENT MEDICATED X1 FOR PAIN WITH ORDERED TYLENOL-SEE ORDERS-PATIENT REPORTED EASE IN PAIN. PATIENT ASKING FOR SNACKS AND PEPSI T/O THE NIGHT. PATIENT SATTING>93% VIA CONTINUOUS PULSE OXOMETER OUTSIDE PATIENTS ROOM. PATIENT HAD BM TODAY-REPORTS MINOR RELIEF TO ABDOMINAL PAIN. BED IS LOCKED IN THE LOWEST POSITION WITH CALL LIGHT IN REACH. CARE IS ONGOING.
[2024-02-24 07:25] LABS: BASOPHILS ABSOLUTE AUTO 0.07 K/mm3 (0.00-0.23); BASOPHILS PERCENT AUTO 1 % (0-2); EOSINOPHILS ABSOLUTE AUTO 0.41 K/mm3 (0.00-0.68); EOSINOPHILS PERCENT AUTO 5 % (0-6); Hematocrit 33.8 % (33.0-51.0); Hemoglobin 9.7 g/dL (11.5-16.0); IMMATURE GRAN ABSOLUTE AUTO 0.15 K/mm3 (0.00-0.10); IMMATURE GRAN PERCENT AUTO 2 % (0-1); LYMPHOCYTES ABSOLUTE AUTO 1.84 K/mm3 (0.84-5.20); LYMPHOCYTES PERCENT AUTO 20 % (21-46); MONOCYTES ABSOLUTE AUTO 1.21 K/mm3 (0.16-1.47); MONOCYTES PERCENT AUTO 13 % (4-13); Mean Corpuscular HGB 24.7 pg (26.0-34.0); Mean Corpuscular HGB Conc 28.7 g/dL (31.5-36.5); Mean Corpuscular Volume 86 fL (80-100); Mean Platelet Volume 10.1 fL (9.1-12.4); NEUTROPHILS ABSOLUTE AUTO 5.52 K/mm3 (1.96-9.15); NEUTROPHILS PERCENT AUTO 60 % (41-73); NRBC ABSOLUTE 0.02 K/mm3 (0.00-0.02); NRBC Auto 0.2 /100 WBC (0.0-0.2); Platelet Count 322 K/mm3 (150-400); RDW Standard Deviation 50.7 fL (35.1-46.3); Red Blood Cell Count 3.93 M/mm3 (3.80-5.20)
[2024-02-24 07:45] LABS: Albumin, Blood 2.8 g/dL (3.4-5.0); Albumin/Globulin Ratio 0.8 (0.8-1.8); Bilirubin, Total 0.2 mg/dL (0.1-1.0); Bun/Creatinine Ratio 21.5 (12.0-20.0); Calcium, Blood 8.2 mg/dL (8.5-10.1); Creatinine, Blood 1.81 mg/dL (0.40-1.00); Globulin, Blood 3.5 g/dL (2.2-4.0); Potassium, Blood 5.2 mmol/L (3.5-5.5); Total Protein, Blood 6.3 g/dL (6.4-8.2)
[2024-02-24 08:06] VITALS: BP 135/79
[2024-02-24] MEDS ORDERED: Gabapentin 300 MG Cap PO SCH (09:00)
[2024-02-24] MEDS ORDERED: Metoprolol Succinate 50 MG TABCR PO SCH (09:00)
[2024-02-24] MEDS ORDERED: ALBU8HFA2 INH (11:38)
[2024-02-24] MEDS ORDERED: CEFD300 PO (11:44)
[2024-02-24] MEDS ORDERED: ONDA4 PO (11:45)
--- NOTE | 2024-02-24 13:17 | NUR ---
PATIENT DISCHARGED HOME VIA W/C TO PRIVATE TRANSPORT IN PARKING LOT. PATIENT NONCOMPLIANT VERBAL AGGRESSIVE WITH DISCHARGE IN STRUCTION TO STAFF, DISCHARGE INSTRUCTIONS GIVEN TO PATIENT, PATIENT IMPATIENT FOR ROUTINE DISCHARGE NEEDS OF ORDERS, PORTABLE OXYGEN, AND INSTRUCTIONS. PATIENT REFUSED DISCAHRGE INSTRUCTIONS, DISCHARGE INSTRUCTIONS/PAPERWORK GIVEN TO PATIENT, REPORTED TO DRUG SAFETY PHYSICIAN
== END 2024-02-24 13:15 | disposition home or self-care (01) | DRG 432 ==
LOC: ER 21:21 → MEDS 21:22 → ENPENDDIS 02-24 12:54 → MEDS 02-24 13:15
PROVIDERS: Emergency Medicine; Family Medicine; Family Medicine Adult Medicine; Hospitalist; Student in an Organized Health Care Education/Training Program; ADMIT Student in an Organized Health Care Education/Training Program
DX: K74.60 Unspecified cirrhosis of liver (principal); J96.21 Acute and chronic respiratory failure with hypoxia; N10 Acute pyelonephritis; I13.0 Hypertensive heart and chronic kidney disease with heart failure and stage 1 through stage 4 chronic kidney disease, or unspecified chronic kidney disease; I50.42 Chronic combined systolic (congestive) and diastolic (congestive) heart failure; I42.0 Dilated cardiomyopathy; E87.1 Hypo-osmolality and hyponatremia; N17.9 Acute kidney failure, unspecified; F41.9 Anxiety disorder, unspecified; N18.30 Chronic kidney disease, stage 3 unspecified; J44.9 Chronic obstructive pulmonary disease, unspecified; E66.9 Obesity, unspecified; E87.5 Hyperkalemia; Z66 Do not resuscitate; K21.9 Gastro-esophageal reflux disease without esophagitis; I25.2 Old myocardial infarction; M79.7 Fibromyalgia; I27.20 Pulmonary hypertension, unspecified; Z86.79 Personal history of other diseases of the circulatory system; Z98.890 Other specified postprocedural states; Z90.89 Acquired absence of other organs; Z87.891 Personal history of nicotine dependence; Z88.1 Allergy status to other antibiotic agents; Z88.8 Allergy status to other drugs, medicaments and biological substances; Z79.899 Other long term (current) drug therapy; Z79.811 Long term (current) use of aromatase inhibitors; Z79.01 Long term (current) use of anticoagulants; Z68.26 Body mass index [BMI] 26.0-26.9, adult
CPT/HCPCS: 36415; 71046; 74177; 78227; 80048; 80053; 81001; 83036; 83930; 83935; 84300; 84550; 85025; 94640; 94664; 94760; 94762; 96365; 96374; 96375; 96376; 99285-25; A9270; A9537; C9113; G0378; J0360; J0696; J1644; J1940; J2270; J3010; J7030; J7040; J7050; Q9967

== ENCOUNTER 2024-03-25 05:44 | Emergency (ER) | payer OTHER ==
[~2024-03-25] VITALS: Ht 152.4 cm; Wt 68.5 kg
[~2024-03-25 05:44] MED LIST changes: +ALBU8HFA2 INH; +CEFD300 PO; +ONDA4 PO
[2024-03-25 06:48] LABS: BASOPHILS ABSOLUTE AUTO 0.06 K/mm3 (0.00-0.23); BASOPHILS PERCENT AUTO 1 % (0-2); EOSINOPHILS ABSOLUTE AUTO 0.13 K/mm3 (0.00-0.68); EOSINOPHILS PERCENT AUTO 1 % (0-6); Hematocrit 31.3 % (33.0-51.0); Hemoglobin 8.8 g/dL (11.5-16.0); IMMATURE GRAN ABSOLUTE AUTO 0.09 K/mm3 (0.00-0.10); IMMATURE GRAN PERCENT AUTO 1 % (0-1); LYMPHOCYTES ABSOLUTE AUTO 1.33 K/mm3 (0.84-5.20); LYMPHOCYTES PERCENT AUTO 12 % (21-46); MONOCYTES ABSOLUTE AUTO 0.91 K/mm3 (0.16-1.47); MONOCYTES PERCENT AUTO 8 % (4-13); Mean Corpuscular HGB 24.2 pg (26.0-34.0); Mean Corpuscular HGB Conc 28.1 g/dL (31.5-36.5); Mean Corpuscular Volume 86 fL (80-100); Mean Platelet Volume 9.8 fL (9.1-12.4); NEUTROPHILS ABSOLUTE AUTO 8.45 K/mm3 (1.96-9.15); NEUTROPHILS PERCENT AUTO 77 % (41-73); Platelet Count 413 K/mm3 (150-400); RDW Coefficient Variation 19.9 % (11.7-14.2); RDW Standard Deviation 62.7 fL (35.1-46.3); Red Blood Cell Count 3.64 M/mm3 (3.80-5.20); White Blood Cell Count 10.97 K/mm3 (4.00-11.30)
[2024-03-25] MEDS ORDERED: Morphine Sulfate 4 MG/1 ML Injection IV ONE (07:00)
[2024-03-25] MEDS ORDERED: Ondansetron HCl 2 MG / ML 2ML Vial IV ONE (07:00)
[2024-03-25 07:09] LABS: Albumin, Blood 3.1 g/dL (3.4-5.0); Bilirubin, Total 0.6 mg/dL (0.1-1.0); Bun/Creatinine Ratio 13.6 (12.0-20.0); Calcium, Blood 8.7 mg/dL (8.5-10.1); Creatinine, Blood 1.25 mg/dL (0.40-1.00); Globulin, Blood 3.2 g/dL (2.2-4.0); Potassium, Blood 4.2 mmol/L (3.5-5.5); Total Protein, Blood 6.3 g/dL (6.4-8.2)
[2024-03-25 10:29] VITALS: BP 144/87
== END 2024-03-25 10:30 ==
LOC: ER 05:44
PROVIDERS: Emergency Medicine
DX: K91.840 Postprocedural hemorrhage of a digestive system organ or structure following a digestive system procedure (principal); J44.9 Chronic obstructive pulmonary disease, unspecified; N18.30 Chronic kidney disease, stage 3 unspecified; I25.2 Old myocardial infarction; K21.9 Gastro-esophageal reflux disease without esophagitis; I13.0 Hypertensive heart and chronic kidney disease with heart failure and stage 1 through stage 4 chronic kidney disease, or unspecified chronic kidney disease; I50.22 Chronic systolic (congestive) heart failure; Z87.891 Personal history of nicotine dependence; Z79.51 Long term (current) use of inhaled steroids; Z79.899 Other long term (current) drug therapy; Z88.1 Allergy status to other antibiotic agents; Z88.5 Allergy status to narcotic agent
CPT/HCPCS: 80053; 85025; 96374; 96375; 99284-25; J2270; J2405

== ENCOUNTER 2024-05-21 23:37 | Inpatient (IN) | payer OTHER ==
[~2024-05-21] VITALS: Ht 152.4 cm; Wt 67.2 kg
[2024-05-22 01:12] LABS: BASOPHILS ABSOLUTE AUTO 0.05 K/mm3 (0.00-0.23); BASOPHILS PERCENT AUTO 0 % (0-2); EOSINOPHILS ABSOLUTE AUTO 0.03 K/mm3 (0.00-0.68); EOSINOPHILS PERCENT AUTO 0 % (0-6); Hematocrit 33.4 % (33.0-51.0); IMMATURE GRAN ABSOLUTE AUTO 0.11 K/mm3 (0.00-0.10); IMMATURE GRAN PERCENT AUTO 1 % (0-1); LYMPHOCYTES ABSOLUTE AUTO 1.67 K/mm3 (0.84-5.20); LYMPHOCYTES PERCENT AUTO 12 % (21-46); MONOCYTES ABSOLUTE AUTO 0.95 K/mm3 (0.16-1.47); MONOCYTES PERCENT AUTO 7 % (4-13); Mean Corpuscular HGB 21.8 pg (26.0-34.0); Mean Corpuscular HGB Conc 26.9 g/dL (31.5-36.5); Mean Corpuscular Volume 81 fL (80-100); Mean Platelet Volume 10.2 fL (9.1-12.4); NEUTROPHILS ABSOLUTE AUTO 10.76 K/mm3 (1.96-9.15); NEUTROPHILS PERCENT AUTO 79 % (41-73); Platelet Count 515 K/mm3 (150-400); RDW Standard Deviation 53.6 fL (35.1-46.3); Red Blood Cell Count 4.13 M/mm3 (3.80-5.20); White Blood Cell Count 13.57 K/mm3 (4.00-11.30)
[2024-05-22 01:37] LABS: Albumin, Blood 3.5 g/dL (3.4-5.0); Albumin/Globulin Ratio 0.9 (0.8-1.8); Bilirubin, Total 0.4 mg/dL (0.1-1.0); Calcium, Blood 8.8 mg/dL (8.5-10.1); Creatinine, Blood 2.48 mg/dL (0.40-1.00); Globulin, Blood 3.9 g/dL (2.2-4.0); Potassium, Blood 5.7 mmol/L (3.5-5.5); Total Protein, Blood 7.4 g/dL (6.4-8.2)
[2024-05-22] MEDS ORDERED: Ciprofloxacin 400MG/D5 200ML 200 ML IV ONE (02:40)
[2024-05-22] MEDS ORDERED: MetroNIDAZOLE 500MG/NS 100 ml 100 ML IV ONE (02:40)
[2024-05-22] MEDS ORDERED: HYDROmorphone HCl/Pf 1MG SYR IV ONE (02:45)
[2024-05-22] MEDS ORDERED: NS 1,000 ML IV SCH ×4 (02:50→15:00)
[2024-05-22] MEDS ORDERED: Morphine Sulfate 4 MG/1 ML Injection IV ONE ×2 (04:35→05:25)
[2024-05-22 04:36] LABS: Source, Urine Clean Catch
[2024-05-22 04:38] LABS: Bilirubin, Urine Neg (Neg); Blood, Urine 4+ (Neg); Glucose Qualitative, Urine Neg (Neg); Ketones, Urine Neg (Neg); Leukocyte Esterase, Urine 3+ (Neg); Nitrite, Urine Neg (Neg); Protein, Urine 3+ (Neg); Specific Gravity, Urine 1.025 (1.003-1.022); Urobilinogen, Urine NORM (Normal)
[2024-05-22] MEDS ORDERED: Ondansetron HCl 2 MG / ML 2ML Vial IV ONE (04:40)
[2024-05-22 04:56] LABS: Appearance, Urine Hazy (Clear); Color, Urine Yellow (P-Yellow)
[2024-05-22 04:58] LABS: Bacteria Many /hpf; Red Blood Cells, Urine 25-50 /hpf (0-2); Squamous Epithelial Cells Mod /hpf (Few); White Blood Cells, Urine 0-2 /hpf (0-5)
[2024-05-22] MEDS ORDERED: CefTRIAXone Sodium 1,000 MG in NS 100 ML IV ONE (05:20)
[2024-05-22] MEDS ORDERED: Acetaminophen 500 MG Tab PO ONE (05:20)
[2024-05-22] MEDS ORDERED: FentaNYL Citrate 50 MCG/ML 2 ML Injection IV PRN ×2 (05:35→20:25)
[2024-05-22] MEDS ORDERED: FLU VACC TS2024-25(6MOS UP)/PF 45 MCG/0.5 ML SYRINGE IM SCH (05:35)
[2024-05-22] MEDS ORDERED: Ondansetron HCl 2 MG / ML 2ML Vial IV PRN (05:40)
[2024-05-22] MEDS ORDERED: LORazepam 2 MG/ML 1ML Injection IV ONE (05:55)
[2024-05-22] MEDS ORDERED: Ampicillin Sod/Sulbactam Sod 3 GM in NS 100 ML IV SCH (06:34)
[2024-05-22 10:05] VITALS: BP 104/59
--- NOTE | 2024-05-22 10:49 | NUR ---
ARRIVAL/BEHAVIORAL NOTE PT ARRIVED UP ON THE FLOOR FROM THE ER VIA GURNEY, TRANSFERED TO NEW BED INDEPENDENTLY PRIOR TO THIS RN ARRIVING IN THE ROOM, PT RESPONDS INTERMITTENTLY TO QUESTIONS, ATTEMPTED TO GET VITALS ON HER AND HER OXYGEN WAS READING LOW IN MID 80'S, ATTEMPTED TO PLACE HER ON NC WHILDE DISCUSSING HOME OXYGEN USE IN WHICH PATIENT STATES SHE USES OXYGEN AT HOME. NC PLACED @ TITRATE STARTING HIGHER THAN WHAT WAS LIKELY NEEDED DUE TO HER BREATHING THROUGH HER MOUTH, ASKED HER TO BREATH IN THROUGH HER NOSE BUT WAS NOT SUCCESSFUL, TITRATED O2 UP WITH STILL NO CHANGE IN SATURATIONS. PT THEN RIPPED OFF THE NC VERY QUICKLY STATING "YOU ARE KILLING ME". ATTEMPTED TO EDUCATE PATIENT ON THE NEED FOR OXYGEN, PT REFUSED TO REPLACE NC. DISCUSSED TRYING A FACE MASK SINCE SHE WAS BREATHING THROUGH HER MOUTH BUT SHE REFUSED SAYING SHE WAS HUNGERY AND TIRED. DISCUSSED NPO STATUS DUE TO SURGICAL REFERAL FOR HER GALLBLADDER, PT SEEMED AGREABLE AT FIRST BUT WAS STILL DEMANDING TO BE FED. ATTEMPTED TO REMIND HER ABOUT HER NPO STATUS UNTIL SHE SEES SURGERY. FOCUSING MACHINE OPERATOR REPORTS HAVING NPO DISCUSSION WITH HER AT LEAST FIVE TIMES ALREADY SINCE ARRIVAL. WILL CONTINUE TO ATTMPET TO EDUCATE HER ON OXYGEN SATURATION LEVELS AND NPO STATUS.
[2024-05-22] MEDS ORDERED: Sodium Zirconium Cyclosilicate 10 GM Packet PO SCH ×3 (11:28→16:00)
[2024-05-22 14:19] VITALS: BP 114/75
[2024-05-22 14:42] LABS: Bun/Creatinine Ratio 19.9 (12.0-20.0); Calcium, Blood 8.9 mg/dL (8.5-10.1); Creatinine, Blood 2.87 mg/dL (0.40-1.00); Potassium, Blood 6.1 mmol/L (3.5-5.5)
--- NOTE | 2024-05-22 19:08 | NUR ---
SHIFT SUMMARY S/P INTRACTABLE ABD PAIN, A/O BUT SHE APPEARS TO NOT COMPREHEND PROVIDED EDUCATION ON BASIC NEEDS AND PLAN OF CARE. ATTEMPTED MULTIPLE TIMES TO EDUCATE HER ON THE NEED FOR OXYGEN AND O2 SATURATION LEVELS, SHE REPORTS UNDERSTANDING BUT REFUSES TO LEAVE HER NC IN PLACE. DELAYED CAP REFIL IN HER HANDS WHICH WERE COLD, THIS IMPROVED WHEN PROVIDING HER WITH A WARM BLANKET BUT CAP REFIL REMAINED AT 3-4 SECONDS. SHE CONSISTENTLY REPEATED ASKING FOR FOOD EVEN WHEN SHE WAS NPO PRIOR TO BEING SEEN BY SURGERY, SHE WAS EDUCATED ON NPO STATUS REPEATEDLY BY THIS RN/PNEUMATIC JACKETER/AND MANUFACTURING ENGINEER PAINT BUT CONTINUED TO STATE SHE NEEDED FOOD. LUNCH AND DINNER TRAY PROVIDED TO HER BUT SHE DID NOT WANT IT WHEN IT WAS GIVEN, BOTH WERE LEFT IN THE ROOM FOR HER TO EAT BUT SHE DID NOT EAT THEM. SHE WOULD THEN REQUEST FOOD AFTER THEY WERE REMOVED FROM THE ROOM STATING SHE WAS HUNGRY. PROVIDED HER WITH OPTIONS AVAILABLE IN THE PANTRY BUT SHE REFUSED ALL BUT WATER AND ORANGE JUICE. PT SLEPT T/O MOST OF THE SHIFT, SHE WOULD OCCASIONALLY WAKE UP STATIGN SHE WAS IN PAIN BUT THEN WOULD SAY SHE WAS TIRED AND WANTED TO GO TO SLEEP. NO OTHER EVENTS THIS SHIFT, CALL LIGHT IN REACH.
[2024-05-22] MEDS ORDERED: OxyCODONE HCL 5 MG TAB PO PRN (20:25)
[2024-05-22] MEDS ORDERED: Calcium Carbonate 500 MG Tab Chew PO PRN (20:25)
--- NOTE | 2024-05-22 20:30 | NUR ---
PATIENT COMMUNICATION THIS RN ROUNDED ON THE PATIENT BECAUSE THE PT WAS HEARD YELLING OUT. PT NOTED TO BE SHOVING HER DINNER INTO HER MOUTH WHILE SCREAMING THAT SHE WAS HAVING THE "THE WORST ABD PAIN". PT INSTRUCTED TO STOP EATING THAT WOULD LIKELY EXASERBATE HER PAIN. PT STATED SHE WAS HUNGRY AND WAS GOING TO CONTINUE TO EAT. PT THEN SAT ON THE EDGE OF HER BED AND SHOVED A WHOLE PIECE OF GALIC BREAD INTO HER MOUTH. PT ASSISTED IN REDRESSING AND GOING INTO THE BATHROOM FOR A BM. PT THEN WALKED BACK TO BED. CALL PLACED TO HOSPITALIST FOR PPI COVERAGE AND ORAL PAIN MEDICATION.
[2024-05-22] MEDS ORDERED: Famotidine 20 MG Tab PO SCH (21:00)
[2024-05-22 21:53] LABS: U Amphetamine Screen DETECTED; U Barbituate Screen Not Detected; U Benzodiazapine Screen DETECTED; U Buprenorphine Screen Not Detected; U Cannabinoids Screen DETECTED; U Cocaine Screen Not Detected; U Methadone Screen DETECTED; U Methamphetamine Screen DETECTED; U Opiates Screen Not Detected; U Oxycodone Screen Not Detected; U Phencyclidine Screen Not Detected
--- NOTE | 2024-05-22 22:08 | NUR ---
PATIENT COMMUNICATION 2129 PT SCREAMING IN PAIN & REQUESTING PAIN MEDICATION. PAIN MANAGED UTILIZING NPIS (DISTRACTION, HEAT, REPOSITION, REST) AND PER EMAR. PT REQUESTING CARBONATED SODA. THIS RN EDUCATED PT ON CONTRAINDICIATION FOR CARBONATED BEVERAGES WITH POTENTIAL FOR WORSENING ABD PAIN. PT VOICED UNDERSTANDING, STATES "I UNDERSTAND BUT I WANT PEPSI". THIS RN EDUCATED PT ON ANALGESICS GIVEN, AND THAT ADDITIONAL PAIN MEDICATIONS WILL NOT BE AVAILABLE FOR SEVERAL HOURS IF CARBONATED BEVERAGE DOES EXACERBATE PAIN. PT VOICED UNDERSTANDING, SAYS "I UNDERSTAND COMPLETELY, I STILL WANT THE PEPSI". PT DRANK PEPSI VERY QUICKLY, THIS RN ADVISED PT TO DRINK SLOWLY TO PREVENT GI UPSET. PT CONTINUES TO DRINK QUICKLY. PT ASKS FOR ADDITIONAL PEPSI. THIS RN REITERATED PREVIOUSLY DISCUSSED CONTRAINDICATIONS AND ADVISED AGAINST THIS. PT VOICED UNDERSTANDING, CONTINUED TO REQUEST PEPSI. THIS RN PROVIDED PEPSI. PT DRANK AGAIN VERY QUICKLY. WITHIN 5MINUTES OF FINISHING SECOND HELPING OF PEPSI, PT CALLING OUT FOR NURSE AND SCREAMING IN PAIN. UPON ARRIVAL, THIS RN NOTED BODILY FLUIDS ON BATHROOM FLOOR. PT SAYS, "THAT'S VOMIT. I PUKED ALL OVER". PT ASKING FOR "ANYTHING TO HELP THE PAIN". PT SCREAMING, STATES "I AM BEGGING YOU, I CANNOT HANDLE ALL THIS PAIN!". THIS RN REITERATED NO ANALGESICS AVAIALBLE PREVIOUSLY DISCUSSED. THIS RN INFORMED PT THAT PEPSI / CARBONATED BEVERAGES WILL BE HELD FOR REMAINDER OF THE NIGHT. PT VOICED UNDERSTANDING, CONTINUES TO SCREAM AND CRY AND REQUESTING PAIN MEDICATION. THIS RN ADMINISTERED TUMS NO ANALGESICS AVAILABLE FOR NEXT DOSE.
[2024-05-23] MEDS ORDERED: Mag Hydrox/AL Hydrox/Simeth 30 ML UDC PO PRN (00:55)
[2024-05-23] MEDS ORDERED: LORazepam 2 MG/ML 1ML Injection IV ONE (00:55)
[2024-05-23] MEDS ORDERED: Mag Hydrox/Al Hydrox/Simeth 18 ML,Lidocaine 2% Viscous Soln 9 ML,Atropine/Scopalam/Hyos... PO ONE (01:20)
--- NOTE | 2024-05-23 04:26 | NUR ---
SHIFT SUMMARY PT WITH ABD PAIN / EPIGASTRIC PAIN, DESCRIBES CRAMPING & REFLUX LIKE SX. PAIN MANAGED UTILIZING NPIS TOLERATED AND PER EMAR. LOOSE, FLUFFY DARK BROWN AND GREEN STOOLS. PT C/O NAUSEA & VOMITING. EMESIS X2 OVERNIGHT FOLLOWING QUICKLY DRINKING PEPSI DESPITE EDUCATION RE: CONTRAINDICIATIONS BY THIS RN. PT REQUIRING 1-2L LFNC, NON COMPLIANT AND FREQUENTLY REMOVING DESPITE EDUCATION BY RN. PT ABLE TO REST DURING SHIFT. A&OX4, ABLE TO VOICE NEEDS. CALL LIGHT IN REACH & PT INSTRUCTED PERSONAL LINES UNDERWRITER LIGHT USE. PT DISPLAYED IMPULSIVE BEHAVIOR T/O SHIFT. NONCOMPLIANT WITH TREATMENT DESPITE VOICING UNDERSTANDING OF PLAN OF CARE & EDUCATION PROVIDED BY NURSING. INAPPROPRIATE USE OF CALL LIGHT, CALLING NURSING 10-20 TIMES PER HOUR T/O SHIFT. PT SCREAMING & CRYING IN PAIN, THRASHING IN BED AND REMOVING MEDICAL EQUIPMENT (OXYGEN, IV). C/O PAIN. REFUSES TO PARTICIPATE IN NPIS DESPITE RN ENCOURAGEMENT & EDUCATION; I.E. DEEP BREATHING, HEAT THERAPY, GUT REST. PT NOTED TO QUICKLY CHUG BEVERAGES DOWN DESPITE THIS RN ENCOURAGING PT TO DRINK SLOWLY TO PREVENT GI UPSET. PT NOTED TO SCARF DOWN ANY FOOD OFFERED (YOGURT, CRACKERS, POPSICLE, BREAD, PASTA) DESPITE CONTINUOUS ENCOURAGEMENT TO TAKE IT SLOW TO PREVENT GI UPSET. PT VOICED UNDERSTANDING OF CONTRAINDICIATIONS TO THESE BEHAVIORS. PT USING PROFANITIES WHEN SPEAKING TO STAFF T/O SHIFT. I.E. PT THRASHING AND PULLING AT IV TUBING, ASKED TO STOP BY THIS RN, PT YELLS AT THIS RN, "I THOUGHT IT WAS MY FUCKING OXYGEN TUBING!". WHEN THIS RN SCANNING PT ID BAND FOR MEDICATION ADMINISTRATION, PT SCREAMS AT THIS RN, "WHAT ARE YOU FUCKING TEASING ME OR SOMETHING, GIVE ME MY MEDICINE! I'M BEGGING YOU!". WHEN THIS RN COACHING PT ON THERAPEUTIC BREATHING TECHNIQUES, PT STATES, "I'M FUCKING TRYING!". THIS RN ASKED PT MULTIPLE TIMES T/O SHIFT TO BE RESPECTFUL TO NURSING STAFF. PT VOICED UNDERSTANDING. PT DOES NOT FOLLOW INSTRUCTIONS FROM ANY NURSING STAFF, DIFFICULT TO REDIRECT AND DE-ESCALATE. IMPULSIVE AND AMBULATES WITHOUT CALLING NURSING STAFF TO ASSIST WITH LINES/TUBES. WHEN INSTRUCTED ON HOW TO AMBULATE SAFELY WITH IV POLE & TUBING, PT CONTINUES TO BE NONCOMPLIANT AND PULL AT IV TUBING & OXYGEN TUBING.
[2024-05-23 05:52] VITALS: BP 143/87
--- NOTE | 2024-05-23 05:58 | NUR ---
OXYGEN THERAPY PT NONCOMPLIANT WITH OXYGEN THERAPY T/O SHIFT. REQUIRING 1-2L NC TO MAINTAIN SPO2 90% OR HIGHER. PT DESATS TO 70S-80S% SPO2 ON RA. PT EDUCATED ON NEED FOR OXYGEN THERAPY; PT VOICED UNDERSTANDING. HAD TO REAPPLY NC TO PT EVERY HOUR T/O SHIFT.
--- NOTE | 2024-05-23 06:40 | NUR ---
NONCOMPLIANCE 0635 THIS RN ENTERED ROOM AND OBSERVED PT WITH IV TUBING DISCONNECTED AND ON FLOOR. IV IN PLACE ON RFA. THIS RN EDUCATED PT ON IV THERAPY AND REITERATED NEED FOR PT TO USE CALL LIGHT BEFORE AMBULATION TO PREVENT COMPLICATIONS. PT VOICED UNDERSTANDING.
[2024-05-23 06:58] VITALS: BP 102/75
[2024-05-23 07:15] LABS: Albumin, Blood 3.1 g/dL (3.4-5.0); Albumin/Globulin Ratio 0.9 (0.8-1.8); BASOPHILS ABSOLUTE AUTO 0.06 K/mm3 (0.00-0.23); BASOPHILS PERCENT AUTO 0 % (0-2); Bilirubin, Total 0.4 mg/dL (0.1-1.0); Bun/Creatinine Ratio 20.5 (12.0-20.0); Calcium, Blood 8.7 mg/dL (8.5-10.1); Creatinine, Blood 2.92 mg/dL (0.40-1.00); EOSINOPHILS ABSOLUTE AUTO 0.01 K/mm3 (0.00-0.68); EOSINOPHILS PERCENT AUTO 0 % (0-6); Globulin, Blood 3.4 g/dL (2.2-4.0); Hematocrit 33.9 % (33.0-51.0); Hemoglobin 9.2 g/dL (11.5-16.0); IMMATURE GRAN ABSOLUTE AUTO 0.35 K/mm3 (0.00-0.10); IMMATURE GRAN PERCENT AUTO 2 % (0-1); LYMPHOCYTES PERCENT AUTO 9 % (21-46); MONOCYTES ABSOLUTE AUTO 2.43 K/mm3 (0.16-1.47); MONOCYTES PERCENT AUTO 13 % (4-13); Magnesium, Blood 2.7 mg/dL (1.6-2.4); Mean Corpuscular HGB 22.1 pg (26.0-34.0); Mean Corpuscular HGB Conc 27.1 g/dL (31.5-36.5); Mean Corpuscular Volume 81 fL (80-100); Mean Platelet Volume 10.8 fL (9.1-12.4); NEUTROPHILS ABSOLUTE AUTO 14.13 K/mm3 (1.96-9.15); NEUTROPHILS PERCENT AUTO 76 % (41-73); NRBC Auto 0.5 /100 WBC (0.0-0.2); Platelet Count 540 K/mm3 (150-400); Potassium, Blood 5.3 mmol/L (3.5-5.5); RDW Coefficient Variation 18.8 % (11.7-14.2); RDW Standard Deviation 53.2 fL (35.1-46.3); Red Blood Cell Count 4.17 M/mm3 (3.80-5.20); Total Protein, Blood 6.5 g/dL (6.4-8.2); White Blood Cell Count 18.68 K/mm3 (4.00-11.30)
[2024-05-23] MEDS ORDERED: Lactobacil 2-S.Thermo-Bifido 1 1 Cap PO SCH (09:00)
--- NOTE | 2024-05-23 13:05 | NUR ---
DC INSTRUCTIONS GIVEN, VERBALIZED UNDERSTANDING.
--- NOTE | 2024-05-23 13:22 | NUR ---
DC INSTRUCTIONS COMPLETED BY SARITA Medina RN. PT LEFT UNIT IN WC W/POSSESSIONS AND DC PAPERWORK IN HAND TO MEET RIDE OUTSIDE.
[2024-05-24] MEDS ORDERED: CIME400 PO (15:38)
== END 2024-05-23 13:11 | disposition home or self-care (01) | DRG 392 ==
LOC: ER 23:37 → ERHOLD 23:38 → SURS 05-22 09:09
PROVIDERS: Emergency Medicine; Student in an Organized Health Care Education/Training Program; ADMIT Internal Medicine
DX: R10.13 Epigastric pain (principal); I50.22 Chronic systolic (congestive) heart failure; I13.0 Hypertensive heart and chronic kidney disease with heart failure and stage 1 through stage 4 chronic kidney disease, or unspecified chronic kidney disease; I42.9 Cardiomyopathy, unspecified; N17.9 Acute kidney failure, unspecified; J44.9 Chronic obstructive pulmonary disease, unspecified; F41.9 Anxiety disorder, unspecified; M79.7 Fibromyalgia; N18.30 Chronic kidney disease, stage 3 unspecified; I27.20 Pulmonary hypertension, unspecified; K21.9 Gastro-esophageal reflux disease without esophagitis; E86.0 Dehydration; E87.5 Hyperkalemia; Z88.1 Allergy status to other antibiotic agents; Z88.8 Allergy status to other drugs, medicaments and biological substances; Z79.899 Other long term (current) drug therapy; Z79.01 Long term (current) use of anticoagulants; I25.2 Old myocardial infarction; Z87.891 Personal history of nicotine dependence
CPT/HCPCS: 36415; 74176; 76705; 80048; 80053; 81001; 82570; 83735; 83880; 83930; 83935; 84132; 84300; 84540; 85025; 87086; 93005; 93010; 94762; 96361; 96374; 96375; 99285-25; A9270; G0378; J0295; J0744; J1170; J2060; J2270; J2405; J3010; J7030

== ENCOUNTER 2024-05-24 04:34 | Inpatient (IN) | payer OTHER ==
[~2024-05-24] VITALS: Ht 152.4 cm; Wt 72.2 kg
[2024-05-24] MEDS ORDERED: NS 1,000 ML IV SCH (06:40)
[2024-05-24] MEDS ORDERED: Ketorolac Tromethamine 30mg Vial IV ONE (06:50)
[2024-05-24 07:18] LABS: BASOPHILS ABSOLUTE AUTO 0.07 K/mm3 (0.00-0.23); BASOPHILS PERCENT AUTO 0 % (0-2); EOSINOPHILS ABSOLUTE AUTO 0.06 K/mm3 (0.00-0.68); EOSINOPHILS PERCENT AUTO 0 % (0-6); Hemoglobin 8.8 g/dL (11.5-16.0); IMMATURE GRAN ABSOLUTE AUTO 0.41 K/mm3 (0.00-0.10); IMMATURE GRAN PERCENT AUTO 2 % (0-1); LYMPHOCYTES ABSOLUTE AUTO 1.38 K/mm3 (0.84-5.20); LYMPHOCYTES PERCENT AUTO 8 % (21-46); MONOCYTES ABSOLUTE AUTO 1.69 K/mm3 (0.16-1.47); MONOCYTES PERCENT AUTO 10 % (4-13); Mean Corpuscular HGB 22.1 pg (26.0-34.0); Mean Corpuscular HGB Conc 27.5 g/dL (31.5-36.5); Mean Corpuscular Volume 80 fL (80-100); Mean Platelet Volume 10.5 fL (9.1-12.4); NEUTROPHILS ABSOLUTE AUTO 13.65 K/mm3 (1.96-9.15); NEUTROPHILS PERCENT AUTO 79 % (41-73); NRBC ABSOLUTE 0.24 K/mm3 (0.00-0.02); NRBC Auto 1.4 /100 WBC (0.0-0.2); Platelet Count 541 K/mm3 (150-400); RDW Coefficient Variation 18.5 % (11.7-14.2); RDW Standard Deviation 52.8 fL (35.1-46.3); Red Blood Cell Count 3.98 M/mm3 (3.80-5.20); White Blood Cell Count 17.26 K/mm3 (4.00-11.30)
[2024-05-24 07:35] LABS: Albumin, Blood 3.2 g/dL (3.4-5.0); Albumin/Globulin Ratio 0.9 (0.8-1.8); Bilirubin, Total 0.4 mg/dL (0.1-1.0); Bun/Creatinine Ratio 20.6 (12.0-20.0); Calcium, Blood 8.2 mg/dL (8.5-10.1); Creatinine, Blood 2.96 mg/dL (0.40-1.00); Globulin, Blood 3.5 g/dL (2.2-4.0); Potassium, Blood 5.5 mmol/L (3.5-5.5); Total Protein, Blood 6.7 g/dL (6.4-8.2)
[2024-05-24] MEDS ORDERED: Piperacillin/Tazobactam Sod 4.5 GM in NS 100 ML IV ONE (13:05)
[2024-05-24] MEDS ORDERED: HYDROmorphone HCl/Pf 1MG SYR IV PRN (15:10)
[2024-05-24] MEDS ORDERED: CIME400 PO (15:38)
[2024-05-24 15:51] LABS: Percent Saturation 2.7 % (15.0-50.0)
[2024-05-24] MEDS ORDERED: Ondansetron 4 MG TAB PO PRN (16:00)
[2024-05-24] MEDS ORDERED: FLU VACC TS2024-25(6MOS UP)/PF 45 MCG/0.5 ML SYRINGE IM SCH (16:00)
[2024-05-24] MEDS ORDERED: Pantoprazole Sodium 40 MG Injection IV SCH (16:30)
[2024-05-24] MEDS ORDERED: Tiotropium Bromide 2.5 MCG/ACT MIST INHAL (10 ACT/4 GM) INH SCH (16:30)
[2024-05-24] MEDS ORDERED: Albuterol HFA200 ACT/6.7 GM INH INH PRN (16:30)
[2024-05-24] MEDS ORDERED: Pantoprazole Sodium 40 MG Injection IV STA (17:10)
[2024-05-24 17:32] LABS: U Cannabinoids Screen DETECTED; U Methamphetamine Screen DETECTED
[2024-05-24 17:33] LABS: U Amphetamine Screen DETECTED; U Barbituate Screen Not Detected; U Benzodiazapine Screen DETECTED; U Buprenorphine Screen Not Detected; U Cocaine Screen Not Detected; U Methadone Screen DETECTED; U Opiates Screen Not Detected; U Oxycodone Screen Not Detected; U Phencyclidine Screen Not Detected
[2024-05-24] MEDS ORDERED: Furosemide 10 MG/ML 4ML Vial IV SCH (18:00)
--- NOTE | 2024-05-24 19:06 | NUR ---
ARRIVAL: PT ARRIVED TO FLOOR AT APPROX 1745 VIA ER BED. PT INSTANTLY BEGAN YELLING AT STAFF THAT SHE WAS STARTVING. ATTEMPTED ADMIT BUT PT REFUSED SKIN CHECK AND CONTINUED TO SCREAM AT STAFF. STAFF UNABLE TO HEAR HEART AND LUNG SOUNDS D/T YELLING. PROTONIX AND LASIX GIVEN UPON ARRIVAL. MAD CONSULT IN PLACE (REFER TO MAD CONSULT NOTES FOR REASONING). PT CONTINUES TO SCREAM AT STAFF STATING "IT HURTS IT HURTS IT HURTS..." DIET ORDERED PER PT REQUEST. DR. BROWN GAVE TELEPHONE ORDER FOR HEART HEALTHY DIET. IV IN MARIA ANTONIA. ON 3L VIA MS. CALL LIGHT IN REACH.
[2024-05-24] MEDS ORDERED: Calcium Carbonate 500 MG Tab Chew PO PRN (19:55)
[2024-05-24 20:31] VITALS: BP 120/79
[2024-05-24] MEDS ORDERED: Gabapentin 300 MG Cap PO SCH (21:00)
[2024-05-24 23:38] LABS: Source, Urine Clean Catch
[2024-05-25] VITALS (12 sets, daily range): BP systolic 79–152; BP diastolic 49–115
[2024-05-25 00:10] LABS: Bilirubin, Urine Neg (Neg); Blood, Urine 2+ (Neg); Glucose Qualitative, Urine Neg (Neg); Ketones, Urine Neg (Neg); Leukocyte Esterase, Urine Neg (Neg); Nitrite, Urine Neg (Neg); Protein, Urine 1+ (Neg); Urobilinogen, Urine NORM (Normal)
[2024-05-25 00:17] LABS: Appearance, Urine Clear (Clear); Color, Urine Pale Yellow (P-Yellow)
[2024-05-25 00:18] LABS: Red Blood Cells, Urine 0-2 /hpf (0-2); White Blood Cells, Urine 0-2 /hpf (0-5)
[2024-05-25 00:19] LABS: Bacteria Few /hpf; Squamous Epithelial Cells Few /hpf (Few)
--- NOTE | 2024-05-25 00:58 | NUR ---
PT SCREAMING "OW, OW, OW" DEMANDING PAIN MEDS. THIS RN INFORMED HER SHE HAD ABOUT ANOTHER 4.5 HOURS BEFORE HER NEXT DOSE WAS ALLOWED. PT STATED "I WILL KILL MYSELF IF I HAVE TO WAIT ANOTHER FOUR AND A HALF HOURS FOR PAIN MEDS." REPORTED TO DR YAO APPROX 0100 FOR SAFETY PURPOSES.
[2024-05-25] MEDS ORDERED: Ondansetron HCl 2 MG / ML 2ML Vial IV PRN ×2 (04:00→08:40)
[2024-05-25] MEDS ORDERED: HYDROmorphone HCl/Pf 1MG SYR IV PRN (04:00)
[2024-05-25] MEDS ORDERED: Pantoprazole Sodium 40 MG Injection IV SCH (06:00)
[2024-05-25 06:39] LABS: BASOPHILS PERCENT AUTO 1 % (0-2); EOSINOPHILS ABSOLUTE AUTO 0.03 K/mm3 (0.00-0.68); EOSINOPHILS PERCENT AUTO 0 % (0-6); Hematocrit 32.6 % (33.0-51.0); Hemoglobin 8.8 g/dL (11.5-16.0); IMMATURE GRAN ABSOLUTE AUTO 0.79 K/mm3 (0.00-0.10); IMMATURE GRAN PERCENT AUTO 5 % (0-1); LYMPHOCYTES ABSOLUTE AUTO 1.53 K/mm3 (0.84-5.20); LYMPHOCYTES PERCENT AUTO 9 % (21-46); MONOCYTES ABSOLUTE AUTO 1.87 K/mm3 (0.16-1.47); MONOCYTES PERCENT AUTO 11 % (4-13); Mean Corpuscular HGB 21.9 pg (26.0-34.0); Mean Corpuscular Volume 81 fL (80-100); NEUTROPHILS ABSOLUTE AUTO 13.35 K/mm3 (1.96-9.15); NEUTROPHILS PERCENT AUTO 75 % (41-73); NRBC ABSOLUTE 0.47 K/mm3 (0.00-0.02); NRBC Auto 2.7 /100 WBC (0.0-0.2); Platelet Count 565 K/mm3 (150-400); RDW Coefficient Variation 18.6 % (11.7-14.2); RDW Standard Deviation 52.9 fL (35.1-46.3); Red Blood Cell Count 4.02 M/mm3 (3.80-5.20); White Blood Cell Count 17.67 K/mm3 (4.00-11.30)
--- NOTE | 2024-05-25 06:41 | NUR ---
SHIFT SUMMARY PT YELLS OUT REPEATEDLY "OW OW OW." "IT HURTS." SWEARING AND YELLING AT STAFF AND DEMANDING PAIN MEDS. THIS RN WAS ABLE TO TALK TO PT ABOUT MENTAL HEALTH SERVICES, STATED SHE WOULD BE "EXTREMELY INTERESTED" IN GETTING INFORMATION ON THESE SERVICES. PT MEDICATED FOR PAIN Q6. ALSO HAS PO ZOFRAN Q6. PT BEGAN VOMMITING AT START OF SHIFT. ALSO HAS LOOSE, WATERY STOOLS. GAVE PO ZOFRAN, WHICH PT VOMMITED BACK UP. PT BEGAN DEMANDING PAIN MEDS AGAIN APPROX 0045. THIS RN REMINDED PT THAT SIX HOURS MUST BE BETWEEN DOSES OF PAIN MEDS. PT MADE STATEMENT ABOUT KILLING HERSELF (SEE OTHER NOTE). DOCTOR MAXIMILIAN CALLED AND MADE AWARE. PT SLEEPING AGAIN 0220. PT STATED SHE WOULD LIKE A VISIT FROM PALLIATIVE CARE PHYSICIAN, AND WOULD ALSO LIKE REFERRAL/INFO FOR MENTAL HEALTH/COUNSELING SERVICES. PT EXIBITING SIGNS OF DT'S. CALLED DR. YAO 0350 AND EXPLAINED PT SYMPTOMS AND PAIN LEVELS. PT HAVING TREMORS, DIFFICULTY SPEAKING FLUIDLY, SEEMING FORGETFUL, AND STILL YELLING. ALSO STILL VOMITING PROFUSLY AND HAVING FREQUENT DIARRHEA. DR. YAO INCREASED IV DILAUDID FROM 0.5MG Q6 TO 0.5-1MG Q4. ALSO CHANGED PO ZOFRAN 4MG Q6 TO IV ZOFRAN 4MG Q4. ADMINISTERED APPROX 0410 WITH NEW ROUTES/DOSAGES. APPROX 0545, PT COMPLAINING OF CHEST PAIN IN CENTER, JUST AT XYPHOID PROCESS AND RADIATING TO URQ. 12-LEAD RAN AND PRINTED. CALLED DR. YAO WHO ORDERED TROPONIN LAB DRAW. LEVEL AT 24 (NORMAL). WILL RELAY TO DAY SHIFT.
[2024-05-25 06:44] LABS: Albumin, Blood 3.2 g/dL (3.4-5.0); Bilirubin, Total 0.5 mg/dL (0.1-1.0); Bun/Creatinine Ratio 19.1 (12.0-20.0); Calcium, Blood 8.1 mg/dL (8.5-10.1); Creatinine, Blood 3.51 mg/dL (0.40-1.00); Globulin, Blood 3.3 g/dL (2.2-4.0); Potassium, Blood 5.6 mmol/L (3.5-5.5); Total Protein, Blood 6.5 g/dL (6.4-8.2)
--- NOTE | 2024-05-25 07:52 | NUR ---
THE PT WAS IN THE BATHROOM AND HER CALL LIGHT WAS GOING OFF WHEN GETTING THE PT WIPES I SAW THAT SHE HAD GENEVA RED STOOL IN THE TOILET. SHE WAS CLEANED UP AND GOT BACK TO BED. SHE HAS BEEN HAVING ONGOING EMESIS WELL. THE FRONT LOADER RESIDENTIAL DRIVER RN WAS IN THE PT'S ROOM DURING THE PT'S LAST EMESIS. HER EMESIS COLOR WAS NOT OBSERVED BY THIS RN. WHEN GETTING VITAL SIGNS ON THE PT HER OXYGEN WAS IN THE 50%'S ON RA. SHE WAS TURNED UP TO 6L NC AND COACHED TO DEEP BREATH. DESIRAE LUJAN CALLED. THE PT WAS ABLE TO RECOVER ON THE 6LNC AND DID NOT REQUIRE THE NONREBREATHER. SHE IS CURRENTLY ON 4LNC W/ SP02 >90% I TALKED TO DR. BROWN IN PERSON AND NOTIFIED HER OF THE ACTIVE RED STOOLS, CONSTANT EMESIS, AND HYPOXIC EPISODE THIS MORNING. DR. BROWN STATED TO GIVE A OT ORDER OF ZOFRAN NOW, AND TO SET UP CONT. PULSE OX. SHE IS REVIEWING THE PT'S CHART. THIS WAS DISCUSSED WITH SHYANNE RAMIREZ CURTAIN CLEANER.
[2024-05-25] MEDS ORDERED: Ondansetron HCl 2 MG / ML 2ML Vial IV ONE (07:55)
[2024-05-25] MEDS ORDERED: LORazepam 2 MG/ML 1ML Injection IV PRN (08:35)
[2024-05-25] MEDS ORDERED: Heparin Sodium,Porcine 5,000 UNIT/0.5 ML SDV SC SCH (09:00)
[2024-05-25] MEDS ORDERED: Sod Ferric Gluc Complx/Sucrose 125 MG in NS 100 ML IV SCH (09:00)
[2024-05-25] MEDS ORDERED: Metoprolol Succinate 50 MG TABCR PO SCH (09:00)
--- NOTE | 2024-05-25 11:05 | NUR ---
PT FALL: THE PT WAS IN THE BATHROOM AND WAS CLEANING HERSELF. THIS RN STEPPED OUT OF THE ROOM TO GET A NEW PULSE OXIMETER AND A HAT TO COLLECT A STOOL SAMPLE. THE COLLEGE COUNSELOR WAS HEADED TO THE ROOM TO CHECK ON THE PT WHILE THIS RN STEPPED OUT. WHEN THE COLLEGE COUNSELOR RUBY WAS WALKING THROUGH THE PT'S DOOR THE PT HAD BEEN UP IN THE BATHROOM AND FALLEN ONTO THE BATHROOM GROUND IN THE SHOWER. CECI BERGMAN RN WAS CALLED AND NOTIFIED. THE PT WAS CRYING AND YELLING BECAUSE HER STOOL HAS BLOOD IN IT AND SHE WAS YELL ABOUT HER ONGOING PAIN IN HER ABD AND BACK. SHE SAT ON THE FLOOR FOR A FEW MINUTES TO CALM DOWN SO WE COULD GET HER OFF OF THE FLOOR AND INTO A CHAIR. WHEN IN THE CHAIR, WE ROLLED THE RECLINER TO THE BED AND RAUL GEE TRANSFERED THE PT TO THE BED. VS WERE TAKEN. ALBERTO AND RAUL GEE WERE SEARCHING FOR A VEIN FOR A NEW IV. THE PT IS CURRENTLY IN BED. THE PT IS VERY ANXIOUS AND NO NEURO CHANGES NOTED. SHE HAS BEEN HAVIN ANXIETY, RAMBLING RAPID SPEECH, CUSSING, AND ONLY ANSWERING SOME QUESTIONS. NO WOUNDS NOTED ON HER BODY. DR. BROWN WAS CALLED, BUT THIS RN ONLY RECIEVED HER VOICEMAIL. A CALL BACK VOICE MAIL WAS GIVEN.
--- NOTE | 2024-05-25 11:59 | NUR ---
DR. BROWN STOPPED BY THE PT'S ROOM POST FALL AND WAS UPDATED ONT HE EVENT. NO FURTHER ORDERS A THIS TIME.
--- NOTE | 2024-05-25 12:00 | NUR ---
1:1 CARLOS OBTAINED D/T IMPULSIVENESS, FALL, AND PULLING AT LINES AND CORDS.
[2024-05-25 12:27] LABS: Stool Occult Bld Immuno 1 Positive (NEGATIVE)
[2024-05-25] MEDS ORDERED: Lidocaine HCl 2% 20 ML MDV ONE (12:42)
[2024-05-25] MEDS ORDERED: propofoL 40 ML IV ONE (12:42)
--- NOTE | 2024-05-25 12:56 | NUR ---
Threat Assessment Team received MAD Consult. Reviewed chart, spoke with Med floor hemodialysis charge nurse. At this point, I was asked not to speak to patient. Patient inappropriate but hemodialysis charge nurse unsure that speaking to her would help, as she is oriented but has potential drug withdrawals, and seems to have limited ability to control or understand behavior. Asked weight analyst to call me if she wanted me to come up and speak to the patient.
[2024-05-25] MEDS ORDERED: NS 500 ML IV SCH ×2 (13:15→14:45)
[2024-05-25] MEDS ORDERED: Dexmedetomidine HCL 200 MCG / 2 ML ONE (13:17)
--- NOTE | 2024-05-25 13:27 | NUR ---
05/25/24 1327 Christopher Bender MONITOR INTACT WITH CONTINUOUS PULSE OXIMETRY, CONTINUOUS END TITAL CO2, AND INTERMITTENT BLOOD PRESSURE.AND EKG ANESTHESIA PER
[2024-05-25 13:46] LABS: Hematocrit 30.2 % (33.0-51.0); Hemoglobin 8.3 g/dL (11.5-16.0)
[2024-05-25] MEDS ORDERED: EpiNEPhrine 1 MG/1 ML 1ML Vial ONE (14:23)
[2024-05-25] MEDS ORDERED: Lidocaine HCl 4% 5 ML SDA ONE (14:31)
[2024-05-25] MEDS ORDERED: NS 250 ML IV ONE ×2 (15:45→16:15)
--- NOTE | 2024-05-25 15:51 | NUR ---
PT CAME BACK FROM EGD AND IS HAVING SOME HYPOTENSION. DR. ESTRADA WAS AT BEDSIDE AND NTOIFIED OF BLOOD PRESSURE. HE ORDERED A 250CC BOLUS AND WANTS TO BE NOTIFIED OF BP POST BOLUS. THE PT IS HAVING DIFFICULTY KEEPING HER SP02 >90% ON 6L NC POST EGD. DESIRAE LUJAN CALLED. SHYANNE BERGMAN RN NOTIFIED.
--- NOTE | 2024-05-25 16:20 | NUR ---
DR. ESTRADA NOTIFIED OF CONT. HYPOTENSION POST 250CC BOLUS OF NS. HE ORDERED A ANOTHER 250CC BOLUS AND STATED TO CALL HOSPITALIST FOR CONT. HYPOTENSION. HE DID CALL DR. BROWN TO NOTIFY HER OF THE HYPOSTENTION AND HIS INTERVENTIONS AND RECCOMENDED A HIGHER LEVEL OF CARE IF HYPOTENSION PROCEEDS.
[2024-05-25] MEDS ORDERED: CefTRIAXone Sodium 1,000 MG in NS 100 ML IV SCH (17:00)
[2024-05-25] MEDS ORDERED: MetroNIDAZOLE 500MG/NS 100 ml 100 ML IV SCH (18:00)
--- NOTE | 2024-05-25 18:41 | NUR ---
DR. BROWN UPDATED ON STABILIZED BP AND OXYGEN STATUS. DR. BROWN WANTS US TO HOLD THE LASIX TONIGHT AND REEVALUATE TOMORROW MORNING. SEE NOTES FOR ANY UPDATES.
[2024-05-25] MEDS ORDERED: NS 1,000 ML IV SCH (22:00)
--- NOTE | 2024-05-26 06:44 | NUR ---
UNFORTUNATELY, MS. MILLARD THIS MORNING @ 0530 AFTER GOING INTO CARDIAC ARREST. PT WAS GOING TO BE TRANSFERED TO THE [facility] FOR BEHAVORIAL ISSUES AND WHILE THIS NURSE WAS GIVING REPORT, ANOTHER NURSE WENT TO PREPARE PT FOR TRANSPORT AND FOUND HER TO BE NOT BREATHING. A CODE BLUE WAS CALLED AND ALL EFFORTS WERE MADE TO RECUSSITATE PT, TO INCLUDE CPR, AND CARDIAC MEDS. DAVID WAS CALLED @ 0530. THIS NURSE ATTEMPTED TO CONTACT PT'S SON, DELLA, LISTED NEXT OF KIN, BUT HE DID NOT ANSWER THE PHONE. A VOICEMAIL WAS LEFT ASKING HIM TO CALL THE HOSPITAL REGARDING HIS MOM.
--- NOTE | 2024-05-26 09:30 | NUR ---
Notification: [place] office notified of patient per request of Dr. Gonzales. Awaiting call back.
--- NOTE | 2024-05-26 10:36 | NUR ---
Upon responding to a request for spiritual care, I came to the patient's room. The family had not arrived yet. Once the family arrived they there was some tension. One family member was yelling at the patient to wake up and the eldest son expressed his dissatisfaction for not being notified sooner that his mother was in a critical state. I provided prayer and grief support. I also contacted the RN Geodetic Surveyor, Linda, and Medical Floor Cambering Machine Operator, Alexi, about the family frustrations. Alexi immediately spoke with the eldest son and explained timing of the events, answered some of his questions and de-escaladed the situation. I assisted the family in selecting [facility] as their home as well as provided more grief support. Family showed signs of being comforted.
--- NOTE | 2024-05-26 11:01 | NUR ---
ME UPDATE: BREANA FROM ME'S OFFICE RETURNED CALL. STATED SHE WAS OKAY WITH DR. BROWN SIGNING CERTIFICATE AND WITH RELEASING THE PATIENT TO THE HOME.
[2024-05-26 11:14] LABS: HEPATITIS A ANTIBODY, IGM Negative (Negative); HEPATITIS B CORE ANTIBODY, IGM Negative (Negative); HEPATITIS B SURFACE ANTIGEN Negative (Negative); HEPATITIS C AB CIA INTERP Negative (Negative); HEPATITIS C ANTIBODY CIA INDEX 0.15 IV
--- NOTE | 2024-05-26 12:15 | NUR ---
DISCHARGE TOOK OVER FINAL DISCHARGE AT 0800. DIXIE, CLINICAL COORDINATOR HAD CALLED [facility]. NIGHTSHIFT RN REPORTED THAT PATIENT SON WAS CONTACTED AFTER . THIS RN ALSO CONTACTED SON AND STATED HE WAS COMING IN. THIS RN CALLED [facility]. SON INFORMED THIS RN THAT HE WOULD LIKE PATIENT SENT TO [facility]. DIXIE INFORMED THIS RN AT APPROX 0930 THAT [facility] CALLED BACK AND PATIENT WAS NOT A DONOR. DR. BROWN ASKED THAT [facility] BE CALLED. DIXIE CALLED [facility]. DIXIE INFORMED DEBO, OIL WELL SERVICE OPERATOR AT APPROX 1200 THAT THE [facility] RELEASED THE BODY. DEBO INFORMED THIS RN. THIS RN AND FERRYBOAT TICKET TAKER DID POST MORTUM CARE. THIS RN CALLED [facility]. AYANNA FROM [facility] PICKED UP PATIENT AT APPROX. 1243.
[2024-05-26 12:22] LABS: Stool Occult Bld Immuno 1 Positive (NEGATIVE)
[2024-05-26] MEDS ORDERED: Magnesium Sulfate 500 MG / ML 2ML Vial IV ONE (13:42)
[2024-05-26] MEDS ORDERED: Sodium Bicarb 8.4% 50 mEq Syringe IV ONE (13:42)
[2024-05-26] MEDS ORDERED: Naloxone HCl 1MG / ML 2ML SYR IV ONE (13:42)
[2024-05-26] MEDS ORDERED: EPINEPhrine HCl 0.1 MG/ML 10ML SYR IV ONE (13:42)
== END 2024-05-26 05:53 | DRG 682 ==
LOC: ER 04:34 → MEDS 15:54
PROVIDERS: Emergency Medicine; Registered Nurse; Student in an Organized Health Care Education/Training Program; ADMIT Internal Medicine
PROC: 3E03329 Introduction of Other Anti-infective into Peripheral Vein, Percutaneous Approach (ICD-10-PCS; principal; 2024-05-24)
PROC: 3E033XZ Introduction of Vasopressor into Peripheral Vein, Percutaneous Approach (ICD-10-PCS; 2024-05-24)
PROC: 5A12012 Performance of Cardiac Output, Single, Manual (ICD-10-PCS; 2024-05-24)
PROC: 0DJ08ZZ Inspection of Upper Intestinal Tract, Via Natural or Artificial Opening Endoscopic (ICD-10-PCS; 2024-05-25)
PROC: 5A1935Z Respiratory Ventilation, Less than 24 Consecutive Hours (ICD-10-PCS; 2024-05-26)
PROC: 0BH17EZ Insertion of Endotracheal Airway into Trachea, Via Natural or Artificial Opening (ICD-10-PCS; 2024-05-26)
PROC: 0DH67UZ Insertion of Feeding Device into Stomach, Via Natural or Artificial Opening (ICD-10-PCS; 2024-05-26)
DX: N17.9 Acute kidney failure, unspecified (principal); J69.0 Pneumonitis due to inhalation of food and vomit; J96.21 Acute and chronic respiratory failure with hypoxia; I42.8 Other cardiomyopathies; E87.1 Hypo-osmolality and hyponatremia; I13.0 Hypertensive heart and chronic kidney disease with heart failure and stage 1 through stage 4 chronic kidney disease, or unspecified chronic kidney disease; I50.32 Chronic diastolic (congestive) heart failure; E87.20 Acidosis, unspecified; J44.0 Chronic obstructive pulmonary disease with (acute) lower respiratory infection; R45.851 Suicidal ideations; F15.13 Other stimulant abuse with withdrawal; Z99.81 Dependence on supplemental oxygen; K21.9 Gastro-esophageal reflux disease without esophagitis; I36.1 Nonrheumatic tricuspid (valve) insufficiency; I27.20 Pulmonary hypertension, unspecified; I50.813 Acute on chronic right heart failure; K76.1 Chronic passive congestion of liver; F41.9 Anxiety disorder, unspecified; M79.7 Fibromyalgia; F31.9 Bipolar disorder, unspecified; E87.5 Hyperkalemia; F43.10 Post-traumatic stress disorder, unspecified; F12.10 Cannabis abuse, uncomplicated; D50.9 Iron deficiency anemia, unspecified; F11.10 Opioid abuse, uncomplicated; F19.10 Other psychoactive substance abuse, uncomplicated; R10.13 Epigastric pain; D75.839 Thrombocytosis, unspecified; I95.81 Postprocedural hypotension; N18.32 Chronic kidney disease, stage 3b; D72.829 Elevated white blood cell count, unspecified; I25.2 Old myocardial infarction; Z79.01 Long term (current) use of anticoagulants; Z87.891 Personal history of nicotine dependence; Z88.1 Allergy status to other antibiotic agents; Z88.8 Allergy status to other drugs, medicaments and biological substances; Z79.51 Long term (current) use of inhaled steroids; Z79.899 Other long term (current) drug therapy; Z86.718 Personal history of other venous thrombosis and embolism; Z98.890 Other specified postprocedural states; Z90.89 Acquired absence of other organs
CPT/HCPCS: 31500; 36415; 71045; 71046; 80053; 80074; 81001; 82274; 82570; 82728; 83540; 83550; 83690; 83880; 84145; 84300; 84484; 84703; 85014; 85018; 85025; 87040; 92950; 93005; 93010; 94002; 94640; 94762; 96361; 96365; 96375; 99285-25; A9270; C1751; J0171; J0696; J1170; J1885; J1940; J2060; J2310; J2405; J2470; J2543; J2704; J2916; J3475; J7030; J7040; J7050